=== PATIENT | female | born 1950 | race Caucasian/White ===

== ENCOUNTER 2016-09-23 02:39 | Inpatient (IN) | payer OTHER ==
[~2016-09-23] VITALS: Ht 162.6 cm; Wt 87.4 kg
[~2016-09-23 02:39] MED LIST: ATV/1 PO; LORA-741 PO; MECL1TAB42 PO; METO50TA16 PO; SERT50TA PO
--- NOTE | 2016-09-23 03:24 | EMERGENCY ROOM VISIT NOTE ---
History First contact with patient: 03:01 Chief Complaint: ABDOMINAL PAIN Stated Complaint: STOMACH PAINS Nursing Triage Summary: atient c/o of abdominal pain and nausea which started yesterday evenning. Denies fevers, vomiting or diarrhea. History of Present Illness The patient is a 65 year old female who presents to the Emergency Room with complaints of abdominal pain which started yesterday late afternoon. The patient states she has pain across her upper abdomen which radiates into the back. She states the pain is constant and rates the discomfort a 6/10. She reports a history of esophageal dysmotility. She had an EGD performed 2 years ago and states it was normal. She takes omeprazole daily due to a history of GERD. She reports slight nausea, but denies vomiting. She is short of breath at times but states this is normal for her. She denies urinary symptoms, hematuria or fevers/chills. She does state she feels her bowel movements have increased in frequency but denies any changes in the bowel movements. She reports a history of PVCs and anxiety. She denies any history of abdominal surgery. Review of Systems A complete 10 point review of systems was reviewed with the patient with pertinent positives and negatives as per history of present illness. All else were negative. Past Medical/Surgical History Medical Problems: (1) Benign paroxysmal positional vertigo (2) Breast cancer (3) Cholecystitis with cholelithiasis (4) Dizziness (5) Endometrial cancer (6) GERD (gastroesophageal reflux disease) (7) MAL ЕКАТЕРИНА BREAST UP-INNER (8) PVC (premature ventricular contraction) Surgical Problems: (1) H/O bilateral hip replacements (2) H/O: hysterectomy Family History FH: cancer FH: heart disease FH: lung disease Hypertension Kidney disease Kidney stones Seizures Social History Smoking Status: Never Smoker Alcohol Use: none Drug Use: none Marital Status: Housing Status: lives with family Occupation Status: unemployed Current/Historical Medications Scheduled Atorvastatin (Lipitor), 10 MG PO DAILY Lorazepam (Ativan), 0.5 MG PO BID Lorazepam (Ativan), 1 MG PO HS Metoprolol Tartrate (Lopressor) (Lopressor), 25 MG PO BID Omeprazole (Prilosec), 20 MG PO DAILY Sertraline (Zoloft), 50 MG PO DAILY Scheduled PRN Acetaminophen (Tylenol), 650 MG PO DIRECTED PRN for Pain or Fever Acetaminophen (Tylenol), 1,000 MG PO DIRECTED PRN for Pain or Fever Meclizine Hcl (Meclizine Hcl), 25 MG PO TID PRN for Dizziness or Vertigo Physical Exam Vital Signs Date Time Temp Pulse Resp B/P (MAP) Pulse Ox O2 Delivery O2 Flow Rate FiO2 09/23/16 06:59 60 18 163/75 97 Room Air 09/23/16 06:08 53 20 137/68 95 Room Air 09/23/16 04:55 65 18 162/66 98 Room Air 09/23/16 02:44 36.9 63 18 162/81 96 Room Air Physical Exam VITALS: Vitals are noted on the nurse's note and reviewed by myself. Vital signs stable. GENERAL: This is a 65-year-old female, in no acute distress, nondiaphoretic, well-developed well-nourished. HEENT: Normocephalic. PERRLA. EOMI. Mucous membranes moist. Neck is supple without nuchal rigidity. HEART: Regular rate and rhythm without murmurs gallops or rubs. LUNGS: Clear to auscultation bilaterally without wheezes, rales or rhonchi. ABDOMEN: Positive bowel sounds x 4. Soft, mild tenderness to palpation across the upper abdomen. No guarding or rebound tenderness. Negative Kebede sign. NEURO: Patient was alert and oriented to person place and time. Medical Decision & Procedures ER Provider Diagnostic Interpretation: CT ABDOMEN & PELVIS: Suspected cholelithiasis. Mild pericholecystic haziness. Correlate for cholecystitis. Consider ultrasound, as indicated. No evidence for appendicitis. Diverticulosis. Portions of the colon under distended limiting evaluation for wall thickening but no diverticulitis appreciated. Small hiatal hernia. Hip arthroplasties and other incidental findings. Radiologist: Jann Briceño MD BILIARY ULTRASOUND FINDINGS: Multiple gallstones are visualized. The gallbladder wall is at the upper limits of normal in thickness. There is no pericholecystic fluid. There is mild gallbladder distention. The common bile duct measures 7 mm. There is no right-sided hydronephrosis. The pancreas was nonvisualized. No hepatic masses were evident. IMPRESSION: 1. Cholelithiasis. Mildly distended gallbladder 2. 7 mm common bile duct 3. Gallbladder wall at the upper limits of normal thickness. 4. If there is clinical concern over the presence of acute cholecystitis, a nuclear medicine hepatobiliary study could be obtained in follow-up Laboratory Results 09/23/16 03:45 Red Blood Count 4.60, Mean Corpuscular Volume 84.3, Mean Corpuscular Hemoglobin 29.3, Mean Corpuscular Hemoglobin Concent 34.8, Mean Platelet Volume 11.6, Neutrophils (%) (Auto) 77.4, Lymphocytes (%) (Auto) 16.6, Monocytes (%) (Auto) 4.5, Eosinophils (%) (Auto) 0.8, Basophils (%) (Auto) 0.5, Neutrophils # (Auto) 8.25, Lymphocytes # (Auto) 1.77, Monocytes # (Auto) 0.48, Eosinophils # (Auto) 0.09, Basophils # (Auto) 0.05 09/23/16 03:45 Test 09/23/16 03:35 09/23/16 03:45 Urine Color YELLOW Urine Appearance CLEAR (CLEAR) Urine pH 5.0 (4.5-7.5) Urine Specific [place] 1.021 (1.000-1.030) Urine Protein NEG (NEG) Urine Glucose (UA) NEG (NEG) Urine Ketones NEG (NEG) Urine Occult Blood NEG (NEG) Urine Nitrite NEG (NEG) Urine Bilirubin NEG (NEG) Urine Urobilinogen NEG (NEG) Urine Leukocyte Esterase NEG (NEG) White Blood Count 10.66 K/uL (4.8-10.8) Red Blood Count 4.60 M/uL (4.2-5.4) Hemoglobin 13.5 g/dL (12.0-16.0) Hematocrit 38.8 % (37-47) Mean Corpuscular Volume 84.3 fL (80-100) Mean Corpuscular Hemoglobin 29.3 pg (25-34) Mean Corpuscular Hemoglobin Concent 34.8 g/dl (32-36) Platelet Count 225 K/uL (130-400) Mean Platelet Volume 11.6 fL (7.4-10.4) Neutrophils (%) (Auto) 77.4 % Lymphocytes (%) (Auto) 16.6 % Monocytes (%) (Auto) 4.5 % Eosinophils (%) (Auto) 0.8 % Basophils (%) (Auto) 0.5 % Neutrophils # (Auto) 8.25 K/uL (1.4-6.5) Lymphocytes # (Auto) 1.77 K/uL (1.2-3.4) Monocytes # (Auto) 0.48 K/uL (0.11-0.59) Eosinophils # (Auto) 0.09 K/uL (0-0.5) Basophils # (Auto) 0.05 K/uL (0-0.2) RDW Standard Deviation 39.5 fL (36.4-46.3) RDW Coefficient of Variation 13.0 % (11.5-14.5) Immature Granulocyte % (Auto) 0.2 % Immature Granulocyte # (Auto) 0.02 K/uL (0.00-0.02) Anion Gap 8.0 mmol/L (3-11) Est Creatinine Clear Calc Drug Dose 59.0 ml/min Estimated GFR () 68.3 Estimated GFR (Non- 59.0 BUN/Creatinine Ratio 11.9 (10-20) Calcium Level 9.5 mg/dl (8.5-10.1) Total Bilirubin 0.6 mg/dl (0.2-1) Direct Bilirubin 0.1 mg/dl (0-0.2) Aspartate Amino Transf (AST/SGOT) 12 U/L (15-37) Alanine Aminotransferase (ALT/SGPT) 21 U/L (12-78) Alkaline Phosphatase 100 U/L (45-117) Troponin I < 0.015 ng/ml (0-0.045) Total Protein 7.4 gm/dl (6.4-8.2) Albumin 3.8 gm/dl (3.4-5.0) Lipase 134 U/L (73-393) Medications Administered Medications (Trade) Dose Ordered Sig/Jyoti Route Start Time Stop Time Status Last Admin Dose Admin Morphine Sulfate (MoRPHine SULFATE INJ) 4 mg NOW STAT IV 09/23/16 04:57 09/23/16 04:58 DC 09/23/16 05:06 2 MG Ondansetron HCl (Zofran Inj) 4 mg NOW STAT IV 09/23/16 04:57 09/23/16 04:58 DC 09/23/16 05:05 4 MG Acetaminophen 100 ml @ 400 mls/hr NOW STAT IV 09/23/16 05:54 09/23/16 06:08 DC 09/23/16 06:05 400 MLS/HR Ondansetron HCl (Zofran Inj) 4 mg NOW STAT IV 09/23/16 07:23 09/23/16 07:24 DC 09/23/16 07:33 4 MG ECG Rate (beats per minute): 58 Rhythm: sinus bradycardia Findings: no acute ischemic change, no ectopy ED Course The patient was evaluated as above. Labs were drawn and IV access was obtained. Patient was medicated with IV morphine and Zofran. CT was performed and read by radiology as above. Ultrasound of the right upper quadrant was ordered. Patient was reevaluated and findings were discussed. She was given IV Tylenol and additional dose of IV Zofran. Case was discussed with the [facility] Hospitalist, Dr. Hearn. They agreed to evaluate the patient for admission. Medical Decision Differential diagnosis includes cholecystitis, gastritis, colitis, gastroenteritis, cardiac disease, kidney stone, pyelonephritis, among others. The patient is a 65-year-old female who presents today complaining of upper abdominal discomfort and nausea. Labs revealed no leukocytosis, however white count is at upper limits of normal. No concerning electrolyte abnormalities. LFTs are within normal limits. CT was performed and showed questionable findings within the gallbladder. For this reason, ultrasound of the right upper quadrant was performed and did show evidence of possible cholecystitis. Given the patient's upper abdominal pain and nausea, I do feel she may need a HIDA scan and further workup for possible cholecystitis. Patient will be admitted to the [facility] service for further evaluation and surgical consultation. Medication Reconcilliation Current Medication List: was personally reviewed by me Blood Pressure Screening Patient's blood pressure: Elevated blood pressure Blood pressure disposition: Elevated BP felt to be situational Impression Primary Impression: Right upper quadrant abdominal pain Departure Information Referrals Yamil Horn M.D. (MEDICAL) (PCP) Patient Instructions [facility]
[2016-09-23] MEDS ORDERED: PRLSR20 PO (03:27)
[2016-09-23] MEDS ORDERED: ACET-1311 PO (03:27)
[2016-09-23] MEDS ORDERED: ACET-1256 PO (03:27)
[2016-09-23] MEDS ORDERED: ATOR10TA88 PO (03:27)
[2016-09-23 03:53] LABS: MANUAL MICROSCOPIC REQUIRED? NO; REVIEW REQ? NO; URINE APPEARANCE CLEAR (CLEAR); URINE BILIRUBIN NEG (NEG); URINE COLOR YELLOW; URINE NITRITE NEG (NEG); URINE SPECIFIC GRAVITY 1.021 (1.000-1.030); UROBILINOGEN NEG (NEG); ZZUR CULT IF INDIC CLEAN CATCH NO
[2016-09-23 03:59] LABS: BASO % 0.5 %; BASO ABS # 0.05 K/uL (0-0.2); COMPLETE YES; EOS % 0.8 %; HEMATOCRIT 38.8 % (37-47); IG% 0.2 %; LYMPH % 16.6 %; LYMPH ABS # 1.77 K/uL (1.2-3.4); MEAN CELL VOLUME 84.3 fL (80-100); MEAN CORPUSCULAR HEMOGLOBIN 29.3 pg (25-34); MEAN CORPUSCULAR HGB CONC 34.8 g/dl (32-36); MEAN PLATELET VOLUME 11.6 fL (7.4-10.4); MONO % 4.5 %; NEUT % 77.4 %; PLATELET COUNT 225 K/uL (130-400); WHITE BLOOD COUNT 10.66 K/uL (4.8-10.8)
[2016-09-23 04:22] LABS: BLOOD UREA NITROGEN 12 mg/dl (7-18); GLUCOSE 124 mg/dl (70-99)
[2016-09-23 04:23] LABS: ALT/SGPT 21 U/L (12-78); AST/SGOT 12 U/L (15-37); BUN/CREATININE RATIO 11.9 (10-20); CALCIUM 9.5 mg/dl (8.5-10.1); CARBON DIOXIDE 26 mmol/L (21-32); CHLORIDE 105 mmol/L (98-107); CREATININE 0.99 mg/dl (0.60-1.20); POTASSIUM 3.8 mmol/L (3.5-5.1); SODIUM 139 mmol/L (136-145)
[2016-09-23 04:27] LABS: ALKALINE PHOSPHATASE 100 U/L (45-117)
[2016-09-23] MEDS ORDERED: OPTIRAY 320 IV PRN (04:45)
[2016-09-23] MEDS ORDERED: ONDANSETRON INJ 2 MG/ML 2 ML VIAL IV STA ×2 (04:57→07:23)
[2016-09-23] MEDS ORDERED: MoRPHine SULFATE 4 MG/ML 1 ML CARP\\VIAL IV STA (04:57)
[2016-09-23] MEDS ORDERED: ACETAMINOPHEN IV 100 ML IV STA (05:54)
--- NOTE | 2016-09-23 07:03 | DIAGNOSTIC IMAGING REPORT ---
BILIARY ULTRASOUND CLINICAL HISTORY: upper abd pain, nausea COMPARISON STUDY: CT scan dated September 23, 2016 FINDINGS: Multiple gallstones are visualized. The gallbladder wall is at the upper limits of normal in thickness. There is no pericholecystic fluid. There is mild gallbladder distention. The common bile duct measures 7 mm. There is no right-sided hydronephrosis. The pancreas was nonvisualized. No hepatic masses were evident. IMPRESSION: 1. Cholelithiasis. Mildly distended gallbladder 2. 7 mm common bile duct 3. Gallbladder wall at the upper limits of normal thickness. 4. If there is clinical concern over the presence of acute cholecystitis, a nuclear medicine hepatobiliary study could be obtained in follow-up Electronically signed by: Yimi Canela M.D. 09/23/2016 7:02 AM Dictated Date/Time: 09/23/2016 6:58 AM
--- NOTE | 2016-09-23 07:08 | EMERGENCY ROOM VISIT NOTE ---
ED Visit Note First contact with patient: 03:01 I saw this patient in conjunction with Yaneli Hernadez PA-C. I agree with her decision making and treatment plan.
--- NOTE | 2016-09-23 07:33 | DIAGNOSTIC IMAGING REPORT ---
ABDOMEN AND PELVIS CT WITH IV CONTRAST CT DOSE: 722.42 mGy.cm HISTORY: pain across upper abdomen, nausea, hx hiatal hernia TECHNIQUE: Multiaxial CT images of the abdomen and pelvis were performed following the use of intravenous contrast. A dose lowering technique was utilized adhering to the principles of ALARA. COMPARISON STUDY: Abdomen and pelvis CT 01/21/2013. FINDINGS: The lung bases are clear. The liver, spleen, Trental glands, pancreas, and kidneys are unremarkable. No retroperitoneal lymphadenopathy. Streak artifact obscures the deep pelvic structures. Hysterectomy. Bladder is decompressed and not well evaluated. A few colonic diverticula. No bowel wall thickening or obstruction. Normal appendix. Bilateral total hip arthroplasties. Suspect cholelithiasis. Minimal pericholecystic haziness. No definite gallbladder wall thickening. IMPRESSION: 1. Suspect cholelithiasis. There may be minimal pericholecystic haziness. This could represent an early acute cholecystitis in the appropriate clinical setting. Recommend correlation with ultrasound. 2. No bowel wall thickening or obstruction. 3. Normal appendix. 4. Colonic diverticulosis. Electronically signed by: Alvarado Cleary M.D. 09/23/2016 7:31 AM Dictated Date/Time: 09/23/2016 7:27 AM
[2016-09-23] MEDS ORDERED: ALUMINUM/MAGNESIUM/SIMETH (MAALOX MAX) 30 ML UDC PO PRN (08:00)
[2016-09-23] MEDS ORDERED: ONDANSETRON INJ 2 MG/ML 2 ML VIAL IV PRN (08:00)
[2016-09-23 08:10] VITALS: O2SAT 98; Ht 162.6 cm; Wt 87.4 kg
[2016-09-23] MEDS ORDERED: MoRPHine SULFATE 2 MG/ML CARP IV PRN (08:45)
[2016-09-23 08:55] VITALS: BP 144/78; PULSE 59; TEMP 36.7; O2SAT 97
[2016-09-23] MEDS: METOPROLOL TARTRATE 50 MG TAB PO SCH ×2 (09:00→21:51)
[2016-09-23] MEDS: LORAZEPAM 0.5 MG TAB PO SCH ×2 (09:00→13:14)
[2016-09-23] MEDS ORDERED: METOPROLOL TARTRATE 50 MG TAB PO SCH (09:00)
[2016-09-23] MEDS: ATORVASTATIN 10 MG TAB PO SCH (09:00)
[2016-09-23] MEDS: SERTRALINE HCL 50 MG TAB PO SCH (09:00)
[2016-09-23] MEDS: PANTOprazole SOD 40 MG TAB PO SCH (09:00)
--- NOTE | 2016-09-23 09:08 | History and Physical ---
History & Physical Date & Time of Service: Sep 23, 2016 at 08:50 Chief Complaint: Stomach Pains Primary Care Physician: Yamil Horn M.D. (MEDICAL) History of Present Illness Source: patient, family, hospital records This is a 65 year old female with a PMH of HTN, HLD, recurrent PVCs, PACs, hx. of breast CA s/p lumpectomy, depression/anxiety, GERD presents with epigastric tenderness - states that she had this last night after dinner and was made worse late night after eating some chips. The pain was described as a sharp pain across her epigastric region. Initially she thought it might be related to reflux - but she states this is usually controlled with over the counter Prilosec. The pain was associated with nausea, but no vomiting. Denies diarrhea. No chest pain or shortness of breath; denies fevers/chills. Presented to the ER: had an abdominal CT showing cholelithiasis and possible acute cholecystitis. RUQ U/S was then performed and gallbladder again, showing possible cholecystitis. Was given morphine and Zofran in the ER; states her pain has improved slightly, but nausea is still present. Past Medical/Surgical History Medical Problems: (1) Benign paroxysmal positional vertigo Status: Chronic (2) Breast cancer Status: Chronic (3) Dizziness Status: Chronic (4) Endometrial cancer Status: Resolved (5) GERD (gastroesophageal reflux disease) Status: Chronic (6) MAL ЕКАТЕРИНА BREAST UP-INNER Status: Resolved (7) PVC (premature ventricular contraction) Status: Chronic Surgical Problems: (1) H/O bilateral hip replacements Status: Resolved (2) H/O: hysterectomy Status: Resolved Family History FH: cancer FH: heart disease FH: lung disease Hypertension Kidney disease Kidney stones Seizures Social History Smoking Status: Never Smoker Drug Use: none Marital Status: Occupational Status: unemployed Immunizations History of Influenza Vaccine: No History of Tetanus Vaccine?: No History of Pneumococcal: No History of Hepatitis B Vaccine: No Multi-Drug Resistant Organisms History of MDRO: No Allergies Coded Allergies: Aspirin (Verified Allergy, Unknown, 09/23/16) Buspirone (Verified Allergy, Unknown, 09/23/16) Clavulanic Acid (Verified Allergy, Unknown, ALLERGY TO "BETA-LACTAMASE" INHIBITORS, 09/23/16) Macrolides (Verified Allergy, Unknown, 09/23/16) Penicillins (Verified Allergy, Unknown, 09/23/16) Sulbactam (Verified Allergy, Unknown, ALLERGY TO "BETA-LACTAMASE INHIBITORS", 09/23/16) Sulfa Drugs (Verified Allergy, Unknown, "SULFA" ALLERGY PER SDS/MTU, ) Codeine (Verified Adverse Reaction, Mild, SWEATS,FAINTS, 09/23/16) Home Medications Scheduled Atorvastatin (Lipitor), 10 MG PO DAILY Lorazepam (Ativan), 0.5 MG PO BID Lorazepam (Ativan), 1 MG PO HS Metoprolol Tartrate (Lopressor) (Lopressor), 25 MG PO BID Omeprazole (Prilosec), 20 MG PO DAILY Sertraline (Zoloft), 50 MG PO DAILY Scheduled PRN Acetaminophen (Tylenol), 650 MG PO DIRECTED PRN for Pain or Fever Acetaminophen (Tylenol), 1,000 MG PO DIRECTED PRN for Pain or Fever Meclizine Hcl (Meclizine Hcl), 25 MG PO TID PRN for Dizziness or Vertigo Review of Systems Constitutional: No fever, No chills, No weakness Respiratory: No cough, No sputum, No shortness of breath Cardiovascular: No chest pain, No orthopnea, No edema, No palpitations Abdomen: + pain, + nausea, No vomiting, No diarrhea, No constipation, No GI bleeding Musculoskeletal: No joint pain, No muscle pain Genitourinary - Female: No dysuria, No urinary frequency, No urinary urgency, No urinary incontinence, No urinary retention, No hematuria Neurologic: No weakness, No numbness/tingling Psychiatric: No depression symptoms, No anxiety (controlled with medications) Hematologic / Lymphatic: No abnormal bleeding/bruising Integumentary: No rash Allergic / Immunologic: No environmental allergies, No seasonal allergies Physical Exam Vital Signs Date Time Temp Pulse Resp B/P (MAP) Pulse Ox O2 Delivery O2 Flow Rate FiO2 09/23/16 08:35 58 18 155/79 98 Room Air 09/23/16 08:10 98 Room Air 09/23/16 06:59 60 18 163/75 97 Room Air 09/23/16 06:08 53 20 137/68 95 Room Air 09/23/16 04:55 65 18 162/66 98 Room Air 09/23/16 02:44 36.9 63 18 162/81 96 Room Air General Appearance: + mild distress (secondary to pain and nausea) Head: normocephalic, atraumatic Eyes: normal inspection ENT: hearing grossly normal Neck: supple Respiratory/Chest: chest non-tender, lungs clear, normal breath sounds, no respiratory distress, no accessory muscle use Cardiovascular: regular rate, rhythm, no edema, no murmur, normal peripheral pulses Abdomen/GI: soft, + tenderness (nondistended, tenderness at epigastric region) Back: no CVA tenderness Extremities/Musculoskelatal: normal capillary refill, no pedal edema Neurologic/Psych: no motor/sensory deficits, alert, normal mood/affect Skin: normal color Lymphatic: no adenopathy Diagnostics Laboratory Results Results Past 24 Hours Test 09/23/16 03:35 09/23/16 03:45 Range/Units Urine Color YELLOW Urine Appearance CLEAR CLEAR Urine pH 5.0 4.5-7.5 Urine Specific [place] 1.021 1.000-1.030 Urine Protein NEG NEG Urine Glucose (UA) NEG NEG Urine Ketones NEG NEG Urine Occult Blood NEG NEG Urine Nitrite NEG NEG Urine Bilirubin NEG NEG Urine Urobilinogen NEG NEG Urine Leukocyte Esterase NEG NEG White Blood Count 10.66 4.8-10.8 K/uL Red Blood Count 4.60 4.2-5.4 M/uL Hemoglobin 13.5 12.0-16.0 g/dL Hematocrit 38.8 37-47 % Mean Corpuscular Volume 84.3 80-100 fL Mean Corpuscular Hemoglobin 29.3 25-34 pg Mean Corpuscular Hemoglobin Concent 34.8 32-36 g/dl Platelet Count 225 130-400 K/uL Mean Platelet Volume 11.6 7.4-10.4 fL Neutrophils (%) (Auto) 77.4 % Lymphocytes (%) (Auto) 16.6 % Monocytes (%) (Auto) 4.5 % Eosinophils (%) (Auto) 0.8 % Basophils (%) (Auto) 0.5 % Neutrophils # (Auto) 8.25 1.4-6.5 K/uL Lymphocytes # (Auto) 1.77 1.2-3.4 K/uL Monocytes # (Auto) 0.48 0.11-0.59 K/uL Eosinophils # (Auto) 0.09 0-0.5 K/uL Basophils # (Auto) 0.05 0-0.2 K/uL RDW Standard Deviation 39.5 36.4-46.3 fL RDW Coefficient of Variation 13.0 11.5-14.5 % Immature Granulocyte % (Auto) 0.2 % Immature Granulocyte # (Auto) 0.02 0.00-0.02 K/uL Sodium Level 139 136-145 mmol/L Potassium Level 3.8 3.5-5.1 mmol/L Chloride Level 105 98-107 mmol/L Carbon Dioxide Level 26 21-32 mmol/L Anion Gap 8.0 3-11 mmol/L Blood Urea Nitrogen 12 7-18 mg/dl Creatinine 0.99 0.60-1.20 mg/dl Est Creatinine Clear Calc Drug Dose 59.0 ml/min Estimated GFR () 68.3 Estimated GFR (Non- 59.0 BUN/Creatinine Ratio 11.9 10-20 Random Glucose 124 70-99 mg/dl Calcium Level 9.5 8.5-10.1 mg/dl Total Bilirubin 0.6 0.2-1 mg/dl Direct Bilirubin 0.1 0-0.2 mg/dl Aspartate Amino Transf (AST/SGOT) 12 15-37 U/L Alanine Aminotransferase (ALT/SGPT) 21 12-78 U/L Alkaline Phosphatase 100 45-117 U/L Troponin I < 0.015 0-0.045 ng/ml Total Protein 7.4 6.4-8.2 gm/dl Albumin 3.8 3.4-5.0 gm/dl Lipase 134 73-393 U/L Diagnostic Radiology ABDOMEN AND PELVIS CT WITH IV CONTRAST CT DOSE: 722.42 mGy.cm HISTORY: pain across upper abdomen, nausea, hx hiatal hernia TECHNIQUE: Multiaxial CT images of the abdomen and pelvis were performed following the use of intravenous contrast. A dose lowering technique was utilized adhering to the principles of ALARA. COMPARISON STUDY: Abdomen and pelvis CT 01/21/2013. FINDINGS: The lung bases are clear. The liver, spleen, Trental glands, pancreas, and kidneys are unremarkable. No retroperitoneal lymphadenopathy. Streak artifact obscures the deep pelvic structures. Hysterectomy. Bladder is decompressed and not well evaluated. A few colonic diverticula. No bowel wall thickening or obstruction. Normal appendix. Bilateral total hip arthroplasties. Suspect cholelithiasis. Minimal pericholecystic haziness. No definite gallbladder wall thickening. IMPRESSION: 1. Suspect cholelithiasis. There may be minimal pericholecystic haziness. This could represent an early acute cholecystitis in the appropriate clinical setting. Recommend correlation with ultrasound. 2. No bowel wall thickening or obstruction. 3. Normal appendix. 4. Colonic diverticulosis. BILIARY ULTRASOUND CLINICAL HISTORY: upper abd pain, nausea COMPARISON STUDY: CT scan dated September 23, 2016 FINDINGS: Multiple gallstones are visualized. The gallbladder wall is at the upper limits of normal in thickness. There is no pericholecystic fluid. There is mild gallbladder distention. The common bile duct measures 7 mm. There is no right-sided hydronephrosis. The pancreas was nonvisualized. No hepatic masses were evident. IMPRESSION: 1. Cholelithiasis. Mildly distended gallbladder 2. 7 mm common bile duct 3. Gallbladder wall at the upper limits of normal thickness. 4. If there is clinical concern over the presence of acute cholecystitis, a nuclear medicine hepatobiliary study could be obtained in follow-up EKG Sinus bradycardia @ 58bpm Otherwise normal ECG Impression Assessment and Plan This is a 65 year old female with a PMH of HTN, HLD, recurrent PVCs, PACs, hx. of breast CA s/p lumpectomy, depression/anxiety, GERD presents with epigastric tenderness Cholelithiasis, possible Cholecystitis patient presented with epigastric tenderness after dinner and snacks last night (09/22) Abdominal CT performed - cholelithiasis - possible acute cholecystitis RUQ U/S unequivocal as well, gallbladder on the upper limits of normal will obtain a HIDA scan currently NPO, IVFs general surgery consultation placed morphine and Zofran PRN for now HTN blood pressure elevated on admission possibly secondary to pain currently continue Metoprolol 50mg BID Hx. of PVCs recent stress echo in June 2016 - no ischemia noted continue b-domo Depression/Anxiety continue Sertraline and Ativan as prescribed DVT ppx SCDs; possible surgery FULL CODE Advanced Directives Existing Living Will: No Existing Power of Occupational Health Physician: No VTE Prophylaxis VTE Risk Assessment Done? Y/N: Yes Risk Level: Moderate
[2016-09-23] MEDS: D5W AND 1/2NSS 1,000 ML IV SCH ×2 (09:35→21:50)
--- NOTE | 2016-09-23 12:48 | DIAGNOSTIC IMAGING REPORT ---
NUCLEAR HEPATOBILIARY SCAN CLINICAL HISTORY: Right upper quadrant abdominal pain. COMPARISON STUDY: Abdominal CT and ultrasound dated 09/23/2016. TECHNIQUE: Dynamic images of the liver and anterior abdomen were obtained every 5 minutes for a total of 60 minutes following the IV administration of 5.4mCi of technetium 99m Choletec. 2 mg of IV morphine were administered at 60 minutes. Delayed imaging was then performed every 5 minutes for an additional 30 minutes. FINDINGS: The hepatobiliary scan shows prompt and homogeneous hepatic uptake. There is visualized activity within the intra and extrahepatic biliary tree at 15 minutes. There is normal biliary to bowel transit, with small bowel visualized by 30 minutes. The gallbladder was not visualized at 60 minutes. The gallbladder was also not visualized at 90 minutes following morphine administration. IMPRESSION: Scintigraphic findings are consistent with acute cholecystitis. Surgical consultation is advised. Electronically signed by: Dwayne Arechiga M.D. 09/23/2016 12:47 PM Dictated Date/Time: 09/23/2016 12:45 PM
[2016-09-23] MEDS: ONDANSETRON INJ 2 MG/ML 2 ML VIAL IV PRN ×2 (13:17→17:27)
[2016-09-23 15:25] VITALS: BP 145/69; PULSE 60; TEMP 36.7; O2SAT 97
--- NOTE | 2016-09-23 16:02 | Surgery Consultation ---
Consultation Date of Consultation: Sep 23, 2016. Attending Physician: David Hearn, History of Present Illness This is a 65 year old female with a PMH of HTN, HLD, recurrent PVCs, PACs, hx. of breast CA s/p lumpectomy, depression/anxiety, GERD presents with epigastric tenderness - states that she had this last night after dinner and was made worse late night after eating some chips. The pain was described as a sharp pain across her epigastric region. Initially she thought it might be related to reflux - but she states this is usually controlled with over the counter Prilosec. The pain was associated with nausea, but no vomiting. Denies diarrhea. No chest pain or shortness of breath; denies fevers/chills. Presented to the ER: had an abdominal CT showing cholelithiasis and possible acute cholecystitis. RUQ U/S was then performed and gallbladder again, showing possible cholecystitis. Was given morphine and Zofran in the ER; states her pain has improved slightly, but nausea is still present. I saw pt and reviewed all H/P, now pt is still have some RUQ pain, with nausea, no vomiting, pt had HIDA scan- DX acute cholecystitis, with cholelithiasis, pt requests to do cholecystectomy, Family History FH: cancer FH: heart disease FH: lung disease Hypertension Kidney disease Kidney stones Seizures Social History Smoking Status: Never Smoker Smokeless Tobacco Use: No Alcohol Use: none Drug Use: none Marital Status: Housing Status: lives with family Occupation Status: unemployed Allergies Coded Allergies: Aspirin (Verified Allergy, Unknown, 09/23/16) Buspirone (Verified Allergy, Unknown, 09/23/16) Clavulanic Acid (Verified Allergy, Unknown, ALLERGY TO "BETA-LACTAMASE" INHIBITORS, 09/23/16) Macrolides (Verified Allergy, Unknown, 09/23/16) Penicillins (Verified Allergy, Unknown, 09/23/16) Sulbactam (Verified Allergy, Unknown, ALLERGY TO "BETA-LACTAMASE INHIBITORS", 09/23/16) Sulfa Drugs (Verified Allergy, Unknown, "SULFA" ALLERGY PER SDS/MTU, ) Codeine (Verified Adverse Reaction, Mild, SWEATS,FAINTS, 09/23/16) Home Medications Scheduled Atorvastatin (Lipitor), 10 MG PO DAILY Lorazepam (Ativan), 0.5 MG PO BID Lorazepam (Ativan), 1 MG PO HS Metoprolol Tartrate (Lopressor) (Lopressor), 25 MG PO BID Omeprazole (Prilosec), 20 MG PO DAILY Sertraline (Zoloft), 50 MG PO DAILY Scheduled PRN Acetaminophen (Tylenol), 650 MG PO DIRECTED PRN for Pain or Fever Acetaminophen (Tylenol), 1,000 MG PO DIRECTED PRN for Pain or Fever Meclizine Hcl (Meclizine Hcl), 25 MG PO TID PRN for Dizziness or Vertigo Current Inpatient Medications Current Inpatient Medications Medications (Trade) Dose Ordered Sig/Jyoti Route Start Time Stop Time Status Last Admin Dose Admin Ioversol (Optiray 320) 100 ml UD PRN IV 09/23/16 04:45 09/27/16 04:44 Atorvastatin Calcium (Lipitor Tab) 10 mg DAILY PO 09/23/16 09:00 10/23/16 08:59 Lorazepam (Ativan Tab) 0.5 mg BID@0900,1500 PO 09/23/16 09:00 10/23/16 08:59 09/23/16 13:14 0.5 MG Lorazepam (Ativan Tab) 1 mg HS PO 09/23/16 21:00 10/23/16 20:59 Sertraline HCl (Zoloft Tab) 50 mg DAILY PO 09/23/16 09:00 10/23/16 08:59 Pantoprazole Sodium (Protonix Tab) 40 mg QAM PO 09/23/16 09:00 10/23/16 08:59 Al Hydrox/Mg Hydrox/Simethicone (Maalox Max Susp) 15 ml Q4H PRN PO 09/23/16 08:00 10/23/16 07:59 Metoprolol Tartrate (Lopressor Tab) 50 mg BID PO 09/23/16 09:00 10/23/16 08:59 Ondansetron HCl (Zofran Inj) 4 mg Q4 PRN IV 09/23/16 12:00 10/23/16 07:59 09/23/16 13:17 4 MG Morphine Sulfate (MoRPHine SULFATE INJ) 2 mg Q4 PRN IV 09/23/16 08:45 10/07/16 08:44 Dextrose/Sodium Chloride 1,000 ml @ 80 mls/hr [id number] IV 09/23/16 09:15 10/23/16 09:14 09/23/16 09:35 80 MLS/HR Review of Systems Constitutional: No fever, No chills, No sweats, No weight loss, No weakness, No fatigue, No problem reported Eyes: No worsening of vision, No eye pain, No redness, No discharge, No diplopia, No problem reported ENT: No hearing loss, No unusual epistaxis, No nasal symptoms, No sore throat, No tinnitus, No dental problems, No trouble swallowing, No problem reported Respiratory: No cough, No sputum, No wheezing, No shortness of breath, No dyspnea on exertion, No dyspnea at rest, No hemoptysis, No problem reported Cardiovascular: + problem reported (pt had cardiac stress test in May, which was negative, ), No chest pain, No orthopnea, No PND, No edema, No claudication , No palpitations Abdomen: + pain, + nausea, + vomiting Musculoskeletal: + problem reported (bilt hip replacement) Genitourinary - Female: No dysuria, No urinary frequency, No urinary urgency, No urinary incontinence, No urinary retention, No hematuria, No dysmenorrhea, No menorrhagia, No metrorrhagia, No rash, No vaginal bleeding, No vaginal discharge, No vaginal itching, No vulvodynia, No , No problem reported Neurologic: No memory loss, No paralysis, No weakness, No numbness/tingling, No vertigo, No balance problems, No problem reported Psychiatric: No depression symptoms, No anhedonism, No anxiety, No insomnia, No substance abuse, No problem reported Endocrine: + problem reported (DM) Integumentary: No rash, No itch, No new/changing skin lesions, No color change , No bleeding, No problem reported Physical Exam Date Time Temp Pulse Resp B/P (MAP) Pulse Ox O2 Delivery O2 Flow Rate FiO2 09/23/16 15:25 36.7 60 18 145/69 (94) 97 Room Air 09/23/16 09:00 Room Air 09/23/16 08:55 36.7 59 18 144/78 (100) 97 Room Air 09/23/16 08:35 58 18 155/79 98 Room Air 09/23/16 08:10 98 Room Air 09/23/16 06:59 60 18 163/75 97 Room Air 09/23/16 06:08 53 20 137/68 95 Room Air 09/23/16 04:55 65 18 162/66 98 Room Air 09/23/16 02:44 36.9 63 18 162/81 96 Room Air General Appearance: WD/WN, no apparent distress Head: normocephalic Eyes: normal inspection ENT: normal ENT inspection Neck: supple, no JVD Respiratory/Chest: chest non-tender, lungs clear Cardiovascular: regular rate, rhythm, no edema, no gallop, no JVD, no murmur Abdomen/GI: normal bowel sounds, soft, no organomegaly, + tenderness ( tenderness at RUQ) Extremities/Musculoskelatal: normal inspection, no calf tenderness, normal capillary refill Neurologic/Psych: no motor/sensory deficits, alert, normal mood/affect Skin: normal color, warm/dry, no rash Laboratory Results Last 24 Hours Test 09/23/16 03:35 09/23/16 03:45 Urine Color YELLOW Urine Appearance CLEAR Urine pH 5.0 Urine Specific [place] 1.021 Urine Protein NEG Urine Glucose (UA) NEG Urine Ketones NEG Urine Occult Blood NEG Urine Nitrite NEG Urine Bilirubin NEG Urine Urobilinogen NEG Urine Leukocyte Esterase NEG White Blood Count 10.66 K/uL Red Blood Count 4.60 M/uL Hemoglobin 13.5 g/dL Hematocrit 38.8 % Mean Corpuscular Volume 84.3 fL Mean Corpuscular Hemoglobin 29.3 pg Mean Corpuscular Hemoglobin Concent 34.8 g/dl Platelet Count 225 K/uL Mean Platelet Volume 11.6 fL Neutrophils (%) (Auto) 77.4 % Lymphocytes (%) (Auto) 16.6 % Monocytes (%) (Auto) 4.5 % Eosinophils (%) (Auto) 0.8 % Basophils (%) (Auto) 0.5 % Neutrophils # (Auto) 8.25 K/uL Lymphocytes # (Auto) 1.77 K/uL Monocytes # (Auto) 0.48 K/uL Eosinophils # (Auto) 0.09 K/uL Basophils # (Auto) 0.05 K/uL RDW Standard Deviation 39.5 fL RDW Coefficient of Variation 13.0 % Immature Granulocyte % (Auto) 0.2 % Immature Granulocyte # (Auto) 0.02 K/uL Sodium Level 139 mmol/L Potassium Level 3.8 mmol/L Chloride Level 105 mmol/L Carbon Dioxide Level 26 mmol/L Anion Gap 8.0 mmol/L Blood Urea Nitrogen 12 mg/dl Creatinine 0.99 mg/dl Est Creatinine Clear Calc Drug Dose 59.0 ml/min Estimated GFR () 68.3 Estimated GFR (Non- 59.0 BUN/Creatinine Ratio 11.9 Random Glucose 124 mg/dl Calcium Level 9.5 mg/dl Total Bilirubin 0.6 mg/dl Direct Bilirubin 0.1 mg/dl Aspartate Amino Transf (AST/SGOT) 12 U/L Alanine Aminotransferase (ALT/SGPT) 21 U/L Alkaline Phosphatase 100 U/L Troponin I < 0.015 ng/ml Total Protein 7.4 gm/dl Albumin 3.8 gm/dl Lipase 134 U/L Assessment & Plan HIDA IMPRESSION: 1. Cholelithiasis. Mildly distended gallbladder 2. 7 mm common bile duct 3. Gallbladder wall at the upper limits of normal thickness. 4. If there is clinical concern over the presence of acute cholecystitis, a nuclear medicine hepatobiliary study could be obtained in follow-up HIDA:IMPRESSION: Scintigraphic findings are consistent with acute cholecystitis. Surgical consultation is advised. IMP: acute cholecystitis, cholelithiasis Plan, I recommend to do laparoscopic cholecystectomy, possible open or cholangiogram tomorrow, D/W benefits, risks and alternatives of the procedure, graciela risks- infection, bleeding, injury CBD, bowel, may need ERCP, CA, DVT, stroke, , pt understood, she and her daughter agree with the plan, I answered all questions,
[2016-09-23] MEDS ORDERED: PROMETHAZINE HCL INJ 12.5 MG in SODIUM CHLORIDE 0.9% 50ML 50 ML IV PRN (17:30)
[2016-09-23] MEDS: LORAZEPAM 1 MG TAB PO SCH (21:51)
[2016-09-23 22:49] VITALS: BP 124/73; PULSE 59; TEMP 36.8; O2SAT 98
[2016-09-24] VITALS (8 sets, daily range): BP systolic 105–126; BP diastolic 57–72; PULSE 58–70; TEMP 36.5–36.9; O2SAT 3–98
[2016-09-24] MEDS: LORAZEPAM 0.5 MG TAB PO SCH ×2 (07:42→15:00)
[2016-09-24] MEDS: PANTOprazole SOD 40 MG TAB PO SCH (07:42)
[2016-09-24] MEDS: SERTRALINE HCL 50 MG TAB PO SCH (07:42)
[2016-09-24] MEDS: ATORVASTATIN 10 MG TAB PO SCH (07:43)
[2016-09-24] MEDS: METOPROLOL TARTRATE 25 MG TAB PO SCH ×2 (07:43→21:43)
[2016-09-24] MEDS: D5W AND 1/2NSS 1,000 ML IV SCH ×2 (10:45→22:03)
[2016-09-24] MEDS ORDERED: FENTANYL CITRATE INJ 50 MCG/1 ML 2 ML VIAL ONE ×2 (13:18→14:30)
[2016-09-24] MEDS ORDERED: SCOPOLAMINE 1.5 MG TDSY TD ONE ×2 (13:28→13:45)
[2016-09-24] MEDS ORDERED: CLINDAMYCIN 600 MG/54 ML D5W IV ONE (13:33)
--- NOTE | 2016-09-24 13:37 | History & Physical Bridge Note ---
H&P Re-Evaluation Bridge Note: I have examined the patient, reviewed the History & Physical and in the interval since the performance of the History & Physical I have noted the following changes of clinical significance: No changes noted
[2016-09-24] MEDS ORDERED: EpHEDrine SULFATE INJ 50 MG/ML AMP IV PRN (13:45)
[2016-09-24] MEDS ORDERED: NURSING VERBAL MED ORDER ONE (13:45)
[2016-09-24] MEDS ORDERED: ONDANSETRON INJ 2 MG/ML 2 ML VIAL IV PRN (13:45)
[2016-09-24] MEDS ORDERED: ATROPINE SULFATE 0.1 MG/ML 5ML SYR IV PRN (13:45)
[2016-09-24] MEDS ORDERED: PROMETHAZINE HCL INJ 12.5 MG in SODIUM CHLORIDE 0.9% 50ML 50 ML IV PRN (13:45)
[2016-09-24] MEDS ORDERED: FENTANYL CITRATE INJ 50 MCG/1 ML 2 ML VIAL IV PRN (13:45)
[2016-09-24] MEDS ORDERED: BUPIVACAINE 0.5 % 5 MG/1 ML MPF 30ML VIAL ONE (13:53)
[2016-09-24] MEDS ORDERED: LIDOCAINE HCL 1% 20 ML VIAL ONE (13:53)
[2016-09-24] MEDS ORDERED: BACITRACIN OINT 15 GM TUBE ONE (13:54)
[2016-09-24] MEDS ORDERED: EpHEDrine SULFATE 50MG/5ML SYR ONE (14:30)
[2016-09-24] MEDS ORDERED: GLYCOPYRROLATE INJ 0.2 MG/ML VIAL ONE ×2 (14:33→15:11)
[2016-09-24] MEDS ORDERED: LIDOCAINE HCL 2% 2 ML VIAL (20MG/ML) ONE (14:33)
[2016-09-24] MEDS ORDERED: PROPOFOL IV EMULSION 10 MG/ML 20 ML VIAL IV ONE (14:33)
[2016-09-24] MEDS ORDERED: NEOSTIGMINE METHYLSULFATE 5 MG/5 ML SYR ONE (14:33)
[2016-09-24] MEDS ORDERED: ONDANSETRON INJ 2 MG/ML 2 ML VIAL ONE (14:33)
[2016-09-24] MEDS ORDERED: DEXAMETHASONE SOD INJ 4 MG/ML VIAL ONE (14:33)
[2016-09-24] MEDS ORDERED: ROCURONIUM BROMIDE 10 MG/ML 5 ML VIAL ONE (14:33)
--- NOTE | 2016-09-24 15:37 | [facility] Post Operative Brief Note ---
Immediate Operative Summary Operative Date Sep 24, 2016. Pre-Operative Diagnosis acute Cholecystitis/ Cholelithiasis Post-Operative Diagnosis acute Cholecystitis/ Cholelithiasis Procedure(s) Performed Laparoscopic Cholecystectomy Surgeon Transfer Controller Surgeon(s) surgical device sales representative Estimated Blood Loss 20cc Findings acute cholecystitis, cholelithiasis Fluids (cc crystalloids) 1100ml Specimens A. Gallbladder and contents Drains none Anesthesia general Complication(s) None Disposition Recovery Room / PACU
--- NOTE | 2016-09-24 15:42 | Surgery Progress Note ---
Surgery Progress Note Date of Service Sep 24, 2016. Subjective + feeling well pt is doing better, less abdominal pain, no fever, Objective Vital Signs: Date Time Temp Pulse Resp B/P (MAP) Pulse Ox O2 Delivery O2 Flow Rate FiO2 09/24/16 10:23 Room Air 09/24/16 07:09 36.6 58 16 115/63 (80) 94 Room Air 09/23/16 23:30 Room Air 09/23/16 22:49 36.8 59 17 124/73 (90) 98 Room Air 09/23/16 19:43 Room Air General Appearance: WD/WN, no apparent distress Head: normocephalic Neck: supple, no adenopathy, no JVD Respiratory/Chest: chest non-tender, lungs clear Cardiovascular: regular rate, rhythm, no edema, no gallop Abdomen: normal bowel sounds, non distended, soft, + tenderness (at RUQ) Extremities: normal range of motion, non-tender, normal inspection Assessment & Plan under general anesthesia, laparoscopic cholecystectomy done, pt tolerated the procedure well, pt can be D/C home tomorrow if she tolerated diet, keep the dressing on for 4 days, she can take a shower on 09/28/2016, follow up me 1 week, .
[2016-09-24] MEDS: CHECK SCOPOLAMINE PATCH PLACEMENT SCH (16:00)
--- NOTE | 2016-09-24 16:21 | Anesthesiology Progress Note ---
Anesthesia Post Op Note Date & Time Sep 24, 2016 at 16:21 Vital Signs Pain Intensity: 0 Vital Signs Past 12 Hours Date Time Temp Pulse Resp B/P (MAP) Pulse Ox O2 Delivery O2 Flow Rate FiO2 09/24/16 16:15 69 18 138/61 96 Nasal Cannula 4 09/24/16 16:05 61 18 142/60 96 Oxymask 10 09/24/16 15:55 70 18 151/72 96 Oxymask 10 09/24/16 15:45 36.6 79 20 163/78 95 Oxymask 10 09/24/16 10:23 Room Air 09/24/16 07:09 36.6 58 16 115/63 (80) 94 Room Air Notes Mental Status: alert / awake / arousable, participated in evaluation Pt Amnestic to Procedure: Yes Nausea / Vomiting: adequately controlled Pain: adequately controlled Airway Patency, RR, SpO2: stable & adequate BP & HR: stable & adequate Hydration State: stable & adequate Anesthetic Complications: no major complications apparent
--- NOTE | 2016-09-24 17:48 | Progress Note ---
Internal Med Progress Note Date of Service: Sep 24, 2016. Provider Documentation: SUBJECTIVE: feels much better abdomen still feels bloated , and sore but severe pain and discomfort has resolved tolerating clears , no nausea or vomiting noted OBJECTIVE: Vital Signs-as noted below Exam: General-no sign of distress Eyes-sclera non icteric Lungs CTA Heart-regular S1/S2 Abdomen-soft, laparoscopic incision intact , bowel sound diminished Extremities-no lower ext edema , rash Neuro-AAO x3, no focal deficit Lab data as noted below. ASSESSMENT & PLAN: This is a 65 year old female with a PMH of HTN, HLD, recurrent PVCs, PACs, hx. of breast CA s/p lumpectomy, depression/anxiety, GERD presents with epigastric tenderness Cholecystitis patient presented with epigastric tenderness Abdominal CT performed - cholelithiasis - possible acute cholecystitis RUQ U/S unequivocal as well, gallbladder on the upper limits of normal HIDA scan : non visualization of gall bladder ; Scintigraphic findings are consistent with acute cholecystitis. general surgery consult appreciated s/p laparoscopic cholecystectomy today recovering well post op ; pain well controlled started on diet no able to pass gas yet asked to increase activity as tolerated HTN currently continue Metoprolol 50mg BID Hx. of PVCs recent stress echo in June 2016 - no ischemia noted continue b-domo Depression/Anxiety continue Sertraline and Ativan as prescribed DVT ppx SCDs; possible surgery FULL CODE DISPOSITION discharge home when medically stable Vital Signs: Date Time Temp Pulse Resp B/P (MAP) Pulse Ox O2 Delivery O2 Flow Rate FiO2 09/24/16 17:14 36.7 60 18 105/57 (73) 98 Nasal Cannula 2.0 09/24/16 16:40 3 Nasal Cannula 09/24/16 16:40 36.8 60 20 123/72 (89) 93 Nasal Cannula 3.0 09/24/16 16:25 36.4 63 18 118/56 96 Nasal Cannula 4 09/24/16 16:15 36.4 69 18 138/61 96 Nasal Cannula 4 09/24/16 16:05 61 18 142/60 96 Oxymask 10 09/24/16 15:55 70 18 151/72 96 Oxymask 10 09/24/16 15:45 36.6 79 20 163/78 95 Oxymask 10 09/24/16 10:23 Room Air 09/24/16 07:09 36.6 58 16 115/63 (80) 94 Room Air 09/23/16 23:30 Room Air 09/23/16 22:49 36.8 59 17 124/73 (90) 98 Room Air 09/23/16 19:43 Room Air
--- NOTE | 2016-09-24 20:41 | OPERATIVE REPORT ---
DATE OF OPERATION: 09/24/2016 PREOPERATIVE DIAGNOSIS: Acute cholecystitis, cholelithiasis. POSTOPERATIVE DIAGNOSIS: Same. PROCEDURE: Laparoscopic cholecystectomy. SURGEON: Angel Davila MD ANESTHESIA: General. ESTIMATED BLOOD LOSS: About 20 mL. FINDINGS: Acute cholecystitis, cholelithiasis. COMPLICATIONS: None. INDICATIONS FOR THE PROCEDURE: This is a 65-year-old female, who presented to the ED with few days of right upper quadrant pain. The patient had ultrasound showing some acute cholecystitis with gallstones and patient required to do laparoscopic cholecystectomy. I did possible open, possible cholangiogram. I did talk to the patient about the benefits, risks and alternate procedure. I indicated the risks may include but not limited to such as bleeding, infection, injury to common bile duct, injury to bowel, may need ERCP, myocardial infarction, DVT, stroke and even ; the patient understands. She signed informed consent and I answered all questions. DETAILS OF PROCEDURE: We brought the patient to the OR and put the patient in the supine position. The patient received SCD on bilateral legs to prevent DVT. Also, the patient received 600 mg of clindamycin for prophylactic antibiotic IV and the patient received general anesthesia without difficulty. The abdomen was prepped and draped in routine sterile fashion. After a timeout, I injected local anesthesia by using 1% lidocaine mixed with 0.5% Marcaine just above the umbilicus. I then made a small incision just above umbilicus, opened fascia and opened peritoneum under direct vision. I put a Alfredo trocar in, connected to CO2 to create pneumoperitoneum. Flow rate is 6 liter per minute. Pressure is not more than 14 mmHg. Once we got a nice pneumoperitoneum, we put a 10 mm camera in, looked around the abdomen. Shows no more findings in the stomach, small bowel or large bowel; however, the patient had significant inflammation on the gallbladder. The gallbladder wall shows significant edema and inflammation. Diagnosis of acute cholecystitis with cholelithiasis. Then we put another 3.5 mm trocar in the right upper quadrant. Once all trocars were in, I put a grasper in to hold the base of the gallbladder, put direction to the diaphragm and put another grasper in to hold the pouch of gallbladder, put the latter to expose the triangle of Calot. However, at this moment, patient's gallbladder with significant distention. I had to decompress the gallbladder by using a large needle and suctioned the fluid out. Once we decompressed, it was easy to hold the gallbladder. At this moment, the cystic duct was identified and mobilized. I put two 5 mm metal clips on the proximal cystic duct and one on the distal cystic duct. Then I used scissor to transect the cystic duct. Then the cystic artery was identified and mobilized. I put two 5 mm metal clips on the proximal cystic artery and one on the distal cystic artery. Then, I used scissor to transect the cystic artery. Then I used a Bovie to take down the gallbladder through the liver bed without difficulty. I rechecked; no active bleeding, no bile leak from the liver bed. Then we removed the gallbladder through the catch bag and then we reinserted the Alfredo trocar in, connected to CO2 to create pneumoperitoneum again and looked around the abdomen. No injury to bowel, no active bleeding or bile leak from the liver bed. Then we removed all trocars under direct vision. No active bleeding from trocar sites. The pneumoperitoneum was released. Then I closed the umbilical incision and fascial layer by using #1 Vicryl [id number] x2, closed the subcutaneous layer by using 2-0 Vicryl and closed skin by using 4-0 Vicryl. Another 3.5 mm trocar site, I closed skin only by using 4-0 Vicryl. We put the dressing on. All the instrument, needle and sponge count were correct x2 at the end of case. The specimen was sent to pathology. After the procedure, the patient was transferred to recovery room in stable condition. After the procedure, I did talk to the patient's and the patient's daughter about the OR finding and procedure we did; they understand. I attest to the content of the Intraoperative Record and any orders documented therein. Any exceptions are noted below. DIONY
[2016-09-24] MEDS: LORAZEPAM 1 MG TAB PO SCH (21:43)
[2016-09-25] MEDS: CHECK SCOPOLAMINE PATCH PLACEMENT SCH ×2 (00:18→08:05)
[2016-09-25 03:27] VITALS: BP 108/57; PULSE 58; TEMP 36.9; O2SAT 93
[2016-09-25] MEDS ORDERED: CLINDAMYCIN 600 MG/54 ML D5W IV ONE (06:00)
[2016-09-25 07:11] VITALS: BP 123/67; PULSE 71; TEMP 37; O2SAT 94
[2016-09-25] MEDS: PANTOprazole SOD 40 MG TAB PO SCH (09:42)
[2016-09-25] MEDS: ATORVASTATIN 10 MG TAB PO SCH (09:42)
[2016-09-25] MEDS: SERTRALINE HCL 50 MG TAB PO SCH (09:42)
[2016-09-25] MEDS: METOPROLOL TARTRATE 25 MG TAB PO SCH (09:42)
[2016-09-25] MEDS: LORAZEPAM 0.5 MG TAB PO SCH ×2 (09:45→14:47)
--- NOTE | 2016-09-25 09:53 | Surgery Progress Note ---
Surgery Progress Note Date of Service Sep 25, 2016. Subjective Post OP Day: 1 (s/p lap teresa) + feeling well, + flatus, + pain controlled, + diet (full liquids), No complaints, No chest pain, No SOB, No nausea, No vomiting Objective Vital Signs: Date Time Temp Pulse Resp B/P (MAP) Pulse Ox O2 Delivery O2 Flow Rate FiO2 09/25/16 07:35 Room Air 09/25/16 07:11 37.0 71 18 123/67 (85) 94 Room Air 09/25/16 03:27 36.9 58 16 108/57 (74) 93 Room Air 09/24/16 23:20 Room Air 09/24/16 23:12 95 Room Air 09/24/16 23:11 36.7 68 16 126/72 (90) 98 Nasal Cannula 3.0 09/24/16 20:43 Nasal Cannula 3.0 09/24/16 19:40 36.9 70 18 112/67 (82) 92 Room Air 09/24/16 18:40 36.5 63 18 112/67 (82) 92 Room Air 09/24/16 17:40 36.7 60 18 110/68 (82) 96 Nasal Cannula 2.0 09/24/16 17:14 36.7 60 18 105/57 (73) 98 Nasal Cannula 2.0 09/24/16 16:40 3 Nasal Cannula 09/24/16 16:40 36.8 60 20 123/72 (89) 93 Nasal Cannula 3.0 09/24/16 16:25 36.4 63 18 118/56 96 Nasal Cannula 4 09/24/16 16:15 36.4 69 18 138/61 96 Nasal Cannula 4 09/24/16 16:05 61 18 142/60 96 Oxymask 10 09/24/16 15:55 70 18 151/72 96 Oxymask 10 09/24/16 15:45 36.6 79 20 163/78 95 Oxymask 10 09/24/16 10:23 Room Air General Appearance: WD/WN, no apparent distress Head: normocephalic, atraumatic Neck: trachea midline Respiratory/Chest: no respiratory distress, no accessory muscle use Abdomen: non tender, non distended, soft Incision(s): clean, dry (dressings clean and dry), no erythema Assessment & Plan POD # 1 s/p lap teresa - vitals stable - minimal abdominal pain, tolerating full liquids - adequate urine output - passing flatus Plan: will advance diet to regular diet for lunch From surgical standpoint patient may be discharged home later today RX and discharge instructions will be given Follow-up with Dr. Davila 1 -[address] Pinto has seen and examined patient, agrees with above
[2016-09-25] MEDS: D5W AND 1/2NSS 1,000 ML IV SCH (10:41)
--- NOTE | 2016-09-25 10:49 | Discharge Instructions ---
Discharge Instructions Date of Service Sep 25, 2016. Admission Reason for Admission: Cholecystitis With Cholelithiasis Discharge Discharge Diagnosis / Problem: Same Discharge Goals Goal(s): Decrease discomfort, Improve function Activity Recommendations Activity Limitations: as noted below -You may remove your surgical dressings 4 days after surgery (remove Wednesday morning, 09/29/16). You have Steri-strips in place (small white band aids) which will fall off on their own over time. After dressings are removed, you may shower - do not scrub the incisions, just wash gently with warm, soapy water. Do not soak, as in a bathtub or swimming pool. -Do not drive until you are no longer taking narcotic pain medications and are completely pain-free -Do not lift anything greater than 20 lbs for the next 2 to 4 weeks. . Instructions / Follow-Up Instructions / Follow-Up -You will need to follow up with Dr. Davila in clinic in approximately 2 weeks for a post op check. Please call to schedule this appointment. Current Hospital Diet Patient's current hospital diet: Regular Diet Discharge Diet Recommended Diet: Regular Diet Procedures Procedures Performed: Laparoscopic Cholecystectomy Pending Studies Studies pending at discharge: yes List of pending studies: Gallbladder pathology - will be discussed at follow up appointment Medical Emergencies . Who to Call and When: Medical Emergencies: If at any time you feel your situation is an emergency, please call 911 immediately. . Non-Emergent Contact Non-Emergency issues call your: Primary Care Provider, Surgeon Call Non-Emergent contact if: temperature is above 101, your pain is not controlled, your pain is worsening, wound has increased drainage, wound has increased redness, wound has increased pain . "Provider Documentation" section prepared by Denise Pinto. . VTE Core Measure Inpt VTE Proph given/why not?: Enoxaparin (Lovenox)SQ, SCD's [place] Drug Monitoring Program Search Results: patient reviewed within database, no issues identified
[2016-09-25 10:51] VITALS: BP 115/49; PULSE 57; TEMP 36.7; O2SAT 91
[2016-09-25 13:53] VITALS: BP 115/49; PULSE 57; TEMP 36.7; O2SAT 91
--- NOTE | 2016-09-25 13:57 | Anesthesiology Progress Note ---
Anesthesia Post Op Note Date & Time Sep 25, 2016 at 13:56 Vital Signs Pain Intensity: 0.0 Vital Signs Past 12 Hours Date Time Temp Pulse Resp B/P (MAP) Pulse Ox O2 Delivery O2 Flow Rate FiO2 09/25/16 10:51 36.7 57 16 115/49 (71) 91 Room Air 09/25/16 07:35 Room Air 09/25/16 07:11 37.0 71 18 123/67 (85) 94 Room Air 09/25/16 03:27 36.9 58 16 108/57 (74) 93 Room Air Notes Mental Status: alert / awake / arousable, participated in evaluation Pt Amnestic to Procedure: Yes Nausea / Vomiting: adequately controlled Pain: adequately controlled Airway Patency, RR, SpO2: stable & adequate BP & HR: stable & adequate Hydration State: stable & adequate Anesthetic Complications: no major complications apparent
--- NOTE | 2016-09-25 14:54 | Progress Note ---
Internal Med Progress Note Date of Service: Sep 25, 2016. Provider Documentation: SUBJECTIVE: tolerating diet well , no complain of pain or discomfort able to pass gas , no bowel movement yet evaluated by surgical team stable to be discharged home today OBJECTIVE: Vital Signs-as noted below Exam: General-no sign of distress Eyes-sclera non icteric Lungs CTA Heart-regular S1/S2 Abdomen-soft, laparoscopic incision intact , bowel sound active Extremities-no lower ext edema , rash Neuro-AAO x3, no focal deficit Lab data as noted below. ASSESSMENT & PLAN: This is a 65 year old female with a PMH of HTN, HLD, recurrent PVCs, PACs, hx. of breast CA s/p lumpectomy, depression/anxiety, GERD presents with epigastric tenderness Cholecystitis patient presented with epigastric tenderness Abdominal CT performed - cholelithiasis - possible acute cholecystitis RUQ U/S unequivocal as well, gallbladder on the upper limits of normal HIDA scan : non visualization of gall bladder ; Scintigraphic findings are consistent with acute cholecystitis. general surgery consult appreciated s/p laparoscopic cholecystectomy POD #1 recovering well post op ; pain well controlled started on diet advanced to solid , tolerating well able to pass gas; no BM yet stable to be discharged home by surgery pt is asked to take stool softener /fiber supplement till having normal bowel movement contact family physician /surgery with any sign of worsening abdominal pain , unable to have bowel movement in next 24-48 hrs HTN continue Metoprolol 50mg BID Hx. of PVCs recent stress echo in June 2016 - no ischemia noted continue b-domo Depression/Anxiety continue Sertraline and Ativan as prescribed DVT ppx SCDs and ambulate FULL CODE DISPOSITION discharge home today Vital Signs: Date Time Temp Pulse Resp B/P (MAP) Pulse Ox O2 Delivery O2 Flow Rate FiO2 09/25/16 13:53 36.7 57 16 91 Room Air 09/25/16 10:51 36.7 57 16 115/49 (71) 91 Room Air 09/25/16 07:35 Room Air 09/25/16 07:11 37.0 71 18 123/67 (85) 94 Room Air 09/25/16 03:27 36.9 58 16 108/57 (74) 93 Room Air 09/24/16 23:20 Room Air 09/24/16 23:12 95 Room Air 09/24/16 23:11 36.7 68 16 126/72 (90) 98 Nasal Cannula 3.0 09/24/16 20:43 Nasal Cannula 3.0 09/24/16 19:40 36.9 70 18 112/67 (82) 92 Room Air 09/24/16 18:40 36.5 63 18 112/67 (82) 92 Room Air 09/24/16 17:40 36.7 60 18 110/68 (82) 96 Nasal Cannula 2.0 09/24/16 17:14 36.7 60 18 105/57 (73) 98 Nasal Cannula 2.0 09/24/16 16:40 3 Nasal Cannula 09/24/16 16:40 36.8 60 20 123/72 (89) 93 Nasal Cannula 3.0 09/24/16 16:25 36.4 63 18 118/56 96 Nasal Cannula 4 09/24/16 16:15 36.4 69 18 138/61 96 Nasal Cannula 4 09/24/16 16:05 61 18 142/60 96 Oxymask 10 09/24/16 15:55 70 18 151/72 96 Oxymask 10 09/24/16 15:45 36.6 79 20 163/78 95 Oxymask 10
--- NOTE | 2016-09-25 14:56 | Discharge Summary ---
Discharge Summary Date of Service Sep 25, 2016. Discharge Summary Admission Date: Sep 23, 2016 at 07:54 Discharge Date: Sep 25, 2016 Discharge Disposition: Home Principal Diagnosis: Cholecystitis With Cholelithiasis Procedures: LAPAROSCOPIC CHOLECYSTECTOMY Consultations: GENERAL SURGERY Medication Reconciliation Continued Medications: Acetaminophen (Tylenol) 325 Mg Tab 650 MG PO DIRECTED PRN for Pain or Fever, TAB Acetaminophen (Tylenol) 500 Mg Tab 1000 MG PO DIRECTED PRN for Pain or Fever, TAB Atorvastatin (Lipitor) 10 Mg Tab 10 MG PO DAILY, TAB Lorazepam (Ativan) 0.5 Mg Tab 0.5 MG PO BID, TAB Lorazepam (Ativan) 1 Mg Tab 1 MG PO HS, TAB Meclizine Hcl (Meclizine Hcl) 25 Mg Tab 25 MG PO TID PRN for Dizziness or Vertigo Metoprolol Tartrate (Lopressor) (Lopressor) 50 Mg Tab 25 MG PO BID, TAB TAKE HALF OF A 50MG TABLET Omeprazole (Prilosec) 20 Mg Capcr 20 MG PO DAILY, CAP Sertraline (Zoloft) 50 Mg Tab 50 MG PO DAILY, TAB Referrals At Discharge Follow up Referrals: Physician Referral - 10/09/16 with Yamil Horn M.D. (MEDICAL) Admission Information HPI (per Admitting provider): This is a 65 year old female with a PMH of HTN, HLD, recurrent PVCs, PACs, hx. of breast CA s/p lumpectomy, depression/anxiety, GERD presents with epigastric tenderness - states that she had this last night after dinner and was made worse late night after eating some chips. The pain was described as a sharp pain across her epigastric region. Initially she thought it might be related to reflux - but she states this is usually controlled with over the counter Prilosec. The pain was associated with nausea, but no vomiting. Denies diarrhea. No chest pain or shortness of breath; denies fevers/chills. Presented to the ER: had an abdominal CT showing cholelithiasis and possible acute cholecystitis. RUQ U/S was then performed and gallbladder again, showing possible cholecystitis. Was given morphine and Zofran in the ER; states her pain has improved slightly, but nausea is still present. Physical Exam (per Admitting): General Appearance: + mild distress (secondary to pain and nausea) Head: normocephalic, atraumatic Eyes: normal inspection ENT: hearing grossly normal Neck: supple Respiratory/Chest: chest non-tender, lungs clear, normal breath sounds, no respiratory distress, no accessory muscle use Cardiovascular: regular rate, rhythm, no edema, no murmur, normal peripheral pulses Abdomen/GI: soft, + tenderness (nondistended, tenderness at epigastric region) Back: no CVA tenderness Extremities/Musculoskelatal: normal capillary refill, no pedal edema Neurologic/Psych: no motor/sensory deficits, alert, normal mood/affect Skin: normal color Lymphatic: no adenopathy Hospital Course This is a 65 year old female with a PMH of HTN, HLD, recurrent PVCs, PACs, hx. of breast CA s/p lumpectomy, depression/anxiety, GERD presents with epigastric tenderness Cholecystitis patient presented with epigastric tenderness Abdominal CT performed - cholelithiasis - possible acute cholecystitis RUQ U/S unequivocal as well, gallbladder on the upper limits of normal HIDA scan : non visualization of gall bladder ; Scintigraphic findings are consistent with acute cholecystitis. general surgery consult appreciated s/p laparoscopic cholecystectomy POD #1 recovering well post op ; pain well controlled started on diet advanced to solid , tolerating well able to pass gas; no BM yet stable to be discharged home by surgery pt is asked to take stool softener /fiber supplement till having normal bowel movement contact family physician /surgery with any sign of worsening abdominal pain , unable to have bowel movement in next 24-48 hrs HTN continue Metoprolol 50mg BID Hx. of PVCs recent stress echo in June 2016 - no ischemia noted continue b-domo Depression/Anxiety continue Sertraline and Ativan as prescribed DVT ppx SCDs and ambulate FULL CODE DISPOSITION discharge home today Total time spent on discharge = 35 mins This includes examination of the patient, discharge planning, medication reconciliation, and communication with other providers. Discharge Instructions Discharge Instructions Date of Service Sep 25, 2016. Admission Reason for Admission: Cholecystitis With Cholelithiasis Discharge Discharge Diagnosis / Problem: Same Discharge Goals Goal(s): Decrease discomfort, Improve function Activity Recommendations Activity Limitations: as noted below -You may remove your surgical dressings 4 days after surgery (remove Wednesday morning, 09/29/16). You have Steri-strips in place (small white band aids) which will fall off on their own over time. After dressings are removed, you may shower - do not scrub the incisions, just wash gently with warm, soapy water. Do not soak, as in a bathtub or swimming pool. -Do not drive until you are no longer taking narcotic pain medications and are completely pain-free -Do not lift anything greater than 20 lbs for the next 2 to 4 weeks. . Instructions / Follow-Up Instructions / Follow-Up -You will need to follow up with Dr. Davila in clinic in approximately 2 weeks for a post op check. Please call to schedule this appointment. Current Hospital Diet Patient's current hospital diet: Regular Diet Discharge Diet Recommended Diet: Regular Diet Procedures Procedures Performed: Laparoscopic Cholecystectomy Pending Studies Studies pending at discharge: yes List of pending studies: Gallbladder pathology - will be discussed at follow up appointment Medical Emergencies . Who to Call and When: Medical Emergencies: If at any time you feel your situation is an emergency, please call 911 immediately. . Non-Emergent Contact Non-Emergency issues call your: Primary Care Provider, Surgeon Call Non-Emergent contact if: temperature is above 101, your pain is not controlled, your pain is worsening, wound has increased drainage, wound has increased redness, wound has increased pain . "Provider Documentation" section prepared by Denise Pinto. . VTE Core Measure Inpt VTE Proph given/why not?: Enoxaparin (Lovenox)SQ, SCD's [place] Drug Monitoring Program Search Results: patient reviewed within database, no issues identified Addendum: Arcelia Blanton M.D. on 09/25/16 @ 11:24 Discharge Inst - Addendum Addendum Notes: MEDICINE FOLLOW UP : 10/09/2016 1:20 PM Yamil Horn MD [facility] Addendum Provider: Addendum Notes were documented by provider Arcelia Blanton. Additional Copies To Yamil Horn M.D. (MEDICAL)
== END 2016-09-25 15:17 | disposition home or self-care (01) | DRG 419 ==
LOC: C.EDB 02:40 → C.MSW 07:54 → ENRESERV 08:27
PROVIDERS: ADMIT Family Medicine; ATTEND Hospitalist
PROC: 0FT44ZZ Resection of Gallbladder, Percutaneous Endoscopic Approach (ICD-10-PCS; principal; 2016-09-24 11:00)
DX: K80.00 Calculus of gallbladder with acute cholecystitis without obstruction (principal); I49.3 Ventricular premature depolarization; I10 Essential (primary) hypertension; E78.5 Hyperlipidemia, unspecified; K21.9 Gastro-esophageal reflux disease without esophagitis; F41.9 Anxiety disorder, unspecified; F32.9 Major depressive disorder, single episode, unspecified; Z96.643 Presence of artificial hip joint, bilateral; Z79.899 Other long term (current) drug therapy

== ENCOUNTER → 2016-12-10 | Outpatient (CLI) | payer OTHER ==
[~2016-12-10] MED LIST changes: +ACET-1256 PO; +ACET-1311 PO; +ATOR10TA88 PO; +PRLSR20 PO
--- NOTE | 2016-12-11 13:43 | MAMMOGRAPHY REPORT ---
BILATERAL DIGITAL SCREENING MAMMOGRAM TOMOSYNTHESIS WITH CAD: 12/10/2016 CLINICAL HISTORY: Asymptomatic. Personal history of breast cancer. TECHNIQUE: Breast tomosynthesis in addition to standard 2D mammography was performed. Current study was also evaluated with a Computer Aided Detection (CAD) system. COMPARISON: Comparison is made to exams dated: 10/18/2015 mammogram, 08/04/2013 mammogram, 08/04/2011 m ammogram, 07/07/2010 mammogram, 08/05/2009 mammogram - [facility], and 07/10/2008. BREAST COMPOSITION: There are scattered areas of fibroglandular density in both breasts. FINDINGS: No suspicious masses, calcifications, or areas of architectural distortion are noted in ei ther breast. There has been no significant interval change compared to prior exams. There are stable postsurgical changes in the left medial posterior breast from prior lumpectomy, including surgical c lips and coarse benign dystrophic calcifications at the lumpectomy bed. A biopsy marker clip is agai n noted in the left upper outer quadrant anteriorly. Scattered bilateral benign-appearing calcificat ions are not significantly changed. Asymmetry in the left lateral posterior breast is stable. IMPRESSION: ACR BI-RADS CATEGORY 2: BENIGN There is no mammographic evidence of malignancy. A 1 year screening mammogram is recommended. The pa tient will receive written notification of the results. Approximately 10% of breast cancers are not detected with mammography. A negative mammographic report should not delay biopsy if a clinically suggestive mass is present. Sara Oglesby M.D. /:12/10/2016 14:50:32 [employer] Worker Apprentice: Leanne ALEMAN(David)(M), [facility] letter sent: Normal 1/2 BI-RADS Code: ACR BI-RADS Category 2: Benign
== END | disposition home or self-care (01) ==
LOC: C.MAMM 13:17
PROVIDERS: ATTEND Family Medicine
DX: Z12.31 Encounter for screening mammogram for malignant neoplasm of breast (principal); Z85.3 Personal history of malignant neoplasm of breast; Z08 Encounter for follow-up examination after completed treatment for malignant neoplasm

== ENCOUNTER 2021-06-30 06:15 | Observation (INO) ==
--- NOTE | 2021-06-10 14:03 | PAT Medication Instructions ---
Medication Instructions Date of Service June 10, 2021 Home Medications Medication Instructions Recorded tramadol 50 mg tablet 50 mg PO Q8H PRN #30 tab 04/16/21 acetaminophen 325 mg capsule (Tylenol) 325 mg PO QID PRN lorazepam 1 mg tablet 0.5 mg PO BID metoprolol tartrate 25 mg tablet 25 mg PO BID omeprazole 20 mg capsule,delayed release 20 mg PO QAM sertraline 25 mg tablet (Zoloft) 25 mg PO HS tramadol 50 mg tablet 50 mg PO Q8H PRN atorvastatin 20 mg tablet 20 mg PO HS lorazepam 1 mg tablet 1 mg PO HS Take morning of surgery With a small sip of water, OTHERWISE NOTHING TO EAT OR DRINK AFTER MIDNIGHT: acetaminophen 325 mg capsule (Tylenol) 325 mg PO QID PRN (okay to take up to 4 hours prior to surgery if needed) lorazepam 1 mg tablet 0.5 mg PO BID metoprolol tartrate 25 mg tablet 25 mg PO BID omeprazole 20 mg capsule,delayed release 20 mg PO QAM tramadol 50 mg tablet 50 mg PO Q8H PRN (okay to take up to 4 hours prior to enrique dante if needed) Take evening before surgery acetaminophen 325 mg capsule (Tylenol) 325 mg PO QID PRN (if needed) lorazepam 1 mg tablet 0.5 mg PO BID metoprolol tartrate 25 mg tablet 25 mg PO BID sertraline 25 mg tablet (Zoloft) 25 mg PO HS tramadol 50 mg tablet 50 mg PO Q8H PRN (if needed) atorvastatin 20 mg tablet 20 mg PO HS lorazepam 1 mg tablet 1 mg PO HS Other Notes If you have any questions please call us at [phone] or [phone] or [phone] or [phone]
--- NOTE | 2021-06-11 12:30 | Anesthesiology Consultation ---
Date of Service June 11, 2021 Assessment & Plan (1) Encounter for pre-operative examination: Chart Review Chart Review: Acceptable Risk for Surgery (pending final cardio clearance and preop Covid testing results ) and Patient seen in Pre Admission Testing -Will write note to cardio inquiring about final cardio approval prior to surgery and to ensure no further work up is necessary -Discussed with Dr. Oconnor- due to symptomatic PACs/PVCs with palpitations and chronic chest pain as well as BPPV with vestibular instability and balance problems- patient is NOT a Same Day Joint candidate - Check BSG AM DOS Per PAT appt on 06/11/21, patient denies any recent travel or large group activities. No known Covid positive exposures or Covid related symptoms. No known Covid infection in the past 90 days. Pt is vaccinated for Covid Preop Covid testing scheduled 06/26/21= will await results. Educated on importance of self quarantining, social distancing and wearing mask in public for the patient one week prior to surgery and after Covid testing done Pt seen by cardio 04/29/21= seen for routine follow-up. Patient complains of left-sided chest discomfort that radiates to her neck, jaw and down her left arm. Does note that she has bad neck and back which is caused her discomfort in the past however symptoms are little different now. Cardio aware of upcoming shoulder replacement. Due to chest pain/pressurethat radiates into her neck and jaw as well as down her left arm-Notes dyspnea and fatiguesymptoms concerning for ischemia. Nuclear stress test and echocardiogram ordered. Hypertensionnormally well controlledlikely elevated due to pain. Mild concentric LVH on last echo. Palpitations secondary to increased cardiac awareness and PACs. Symptoms are generally well controlled however with her worsening pain she has noticed more palpitations in the morning. May consider switching from Toprol tartrate to succinate after stress test. Dyslipidemiauncontrolled. Atorvastatin changed to Crestor. Follow-up in 3 months. History Surgery Operation Date: 06/30/21 10:40 Proposed Procedures p Right Reverse Total Shoulder Arthroplasty - Jesse Cruz DO Height/Weight Height: 5 ft 3.5 in Weight: 85.6 kg Allergies Allergy/AdvReac Type Severity Reaction Status Date / Time buspirone Allergy Intermediate Rash Verified 06/10/21 10:53 aspirin Allergy Unknown GI upset Verified 06/11/21 12:18 and epistaxis clavulanic acid Allergy Unknown ALLERGY TO Verified 06/10/21 10:53 "BETA-LACTAMASE" INHIBITORS Macrolide Antibiotics Allergy Unknown Rash Verified 06/10/21 10:53 Penicillins Allergy Unknown Unknown Verified 06/10/21 10:53 sulbactam Allergy Unknown ALLERGY TO Verified 06/10/21 10:53 "BETA-LACTAMASE INHIBITORS" Sulfa (Sulfonamide Allergy Unknown Unknown Verified 06/11/21 12:18 Antibiotics) codeine AdvReac Mild SWEATS,ARSENIO Verified 06/10/21 10:53 TS Medications Home Medications Medication Instructions Recorded Confirmed Last Taken acetaminophen 325 mg capsule 325 mg PO QID PRN 04/16/21 06/11/21 Unknown (Tylenol) lorazepam 1 mg tablet 0.5 mg PO BID tab 04/16/21 06/11/21 Unknown metoprolol tartrate 25 mg tablet 25 mg PO BID 04/16/21 06/11/21 Unknown omeprazole 20 mg capsule,delayed 20 mg PO QAM 04/16/21 06/11/21 Unknown release sertraline 25 mg tablet (Zoloft) 25 mg PO HS 04/16/21 06/11/21 Unknown tramadol 50 mg tablet 50 mg PO Q8H PRN #30 tab 04/16/21 06/11/21 Unknown atorvastatin 20 mg tablet 20 mg PO HS 06/10/21 06/11/21 Unknown lorazepam 1 mg tablet 1 mg PO HS 06/10/21 06/11/21 Unknown Past Medical History Medical History (Updated 06/11/21 @ 16:10 by Dorothy Brownlee PA-C) Anxiety Benign paroxysmal positional vertigo (11/04/12) Ongoing and chronic issue "Vestibular instability and balance problems" per cardio S records Has been to vestibular center- felt vertigo due to floaters in eyes Borderline diabetes Diet control Breast cancer 2001 > lumpectomy left > radiation Denies left UE restriction Depression Deviated nasal septum Endometrial cancer 2009 > hysterectomy - no chemo and XRT GERD (gastroesophageal reflux disease) Controlled and stable with meds Heart palpitations Follows with [facility] Secondary to symptomatic PACs and short runs of PAT Also history PVCs History of COVID-10 Nov 2020 > very mild symptoms Hyperlipidemia Hypertension Mitral regurgitation Mild per 04/2021 ECHO Shortness of breath Mostly just happens after taking meds Stress incontinence Exercise / Class Metabolic Activity III < 4 Walking/Shop/Light housework (one flight of stairs - no chest pain, mild SOB ) Past Family History Family History Uncle Diabetes Grandmother Colon cancer Past Surgical History Surgical History History of bilateral tubal ligation History of cataract surgery bilat History of cholecystectomy History of colonoscopy History of dilatation and curettage History of lumpectomy of left breast History of total hip arthroplasty bilat Hx of hysterectomy Hx of oral surgery Hx of vitrectomy Past Anesthesia History No Hx of Anesthesia Complications (with exception to awareness during DENEEN ) and No Family Hx of Anesthesia Complications History of PONV No Hx of Motion Sickness and History of PONV (improved Zofran ) Social History Smoking Status: Never smoker Do You Dip or Chew Tobacco: No Hx Alcohol Use: No Hx Substance Use: No substance use type: does not use Review of Systems Occ palpitations- chronic and ongoing - associated chest pain with palpitations x 30 years Occ SOB at rest (after taking meds)- discussed with numerous providers- feels anxiety related Chronic cough- ongoing since Covid Hx of blood transfusion with DENEEN Patient denies wheezing No hx of seizures, stroke, [place], apnea/snoring. No hx of blood clots Physical Exam Vital Signs VITALS BP 127/68 P 57 TEMP 98.4 SP02 96% RESP 16 Constitutional no acute distress ENMT Mouth: no TMJ clicking Thyromental Distance: < 3.5 Finger Breadths (3.0) Mallampati Class: III Full dentures on top Missing all bottom teeth except three bottom front teeth Neck + limited neck extension Respiratory normal respiratory effort; no respiratory distress Auscultation: lungs clear to auscultation bilaterally; no wheezes Cardiovascular Rate/Rhythm: regular rate and regular rhythm Heart Sounds: no murmur Vessels: no carotid bruit Musculoskeletal Spine: + pain with cervical ROM Extremities: extremities normal to inspection Psychiatric Orientation: alert Lab Results Anesthesia Preop Results Results Anesthesia Widget: WBC 8.97 K/uL (4.8-10.8) 06/11/21 Hgb 14.6 g/dL (12.0-16.0) 06/11/21 Hct 43.3 % (37-47) 06/11/21 Plt 285 K/uL (130-400) 06/11/21 Na 138 mmol/L (136-145) 06/11/21 K 4.2 mmol/L (3.5-5.1) 06/11/21 Cl 103 mmol/L (98-107) 06/11/21 CO2 28 mmol/L (21-32) 06/11/21 BUN 17 mg/dl (6-23) 06/11/21 Creat 0.85 mg/dl (0.6-1.2) 06/11/21 Glucose Level 97 mg/dl (70-99(Fasting)) 06/11/21 PT 10.5 Seconds (9.0-12.0) 06/11/21 PTT 27.4 Seconds (21.0-31.0) 06/11/21 INR 1.0 (0.9-1.1) 06/11/21 HA1c 5.4 % (4.5-5.6) 06/11/21 Blood Type A Positive 06/11/21 Antibody Screen NEGATIVE 06/11/21 Testing Electrocardiogram Date: 04/29/21 Findings: + SB @ (58bpm ) and + no change from (July 15, 2020 per cardio ) RBBB. Chest X-Ray Date: 06/11/21 Findings: + NAD FINDINGS: No pneumothorax. No pleural effusions. The cardiac silhouette remains mildly enlarged. Prior cholecystectomy. The lungs are clear. Mild S-shaped scoliosis of the thoracolumbar spine. Postoperative changes again noted within the left medial breast. IMPRESSION: 1. Stable mild cardiomegaly. 2. Otherwise, no acute process within the chest. Echocardiogram Date: 05/08/21 EF: 60-64% LV Function: normal RWMA: + none Other Findings: + LVH (borderline/concentric ) and + diastolic dysfunction (Grade II ) Sinus bradycardia during examination. LA moderately enlarged Mild TR. Mild secondary MR. Estimated PASP 36mmHg. Stress Test Date: 05/08/21 Type: nuclear Myocardial perfusion is normal. Overall LV systolic function was normal without RWMA. LVEF 65%. No changed compared to previous study.
[~2021-06-30 06:15] MED LIST changes: -ACET-1256 PO; -ACET-1311 PO; +ACETAMINOPHEN 500 MG TAB PO SCH; -ATOR10TA88 PO; -ATV/1 PO; +FAMOTIDINE 20 MG TAB PO SCH; +GABAPENTIN 300 MG CAP PO SCH; +Ketorolac (*for OR use only*) 30 MG, dexAMETHasone 4 MG, KETAMINE HCL (**OR use only) 1... INFIL SCH; -LORA-741 PO; +LR 15ML/HR IV SCH; +LR 60ML/HR IV SCH; -MECL1TAB42 PO; -METO50TA16 PO; -PRLSR20 PO; -SERT50TA PO; +TRANEXAMIC ACID 1,000 MG **IV Intra-op IV SCH; +TRANEXAMIC ACID 1,000 MG **IV Pre-op IV SCH; +ceFAZolin 2000MG 2,000 MG/15 ML SYR IV SCH; +dexAMETHasone 4 MG TAB PO SCH
[2021-06-30] MEDS ORDERED: BUPIVACAINE 0.5 % 5 MG/1 ML PF 10ML VIAL ONE (06:23)
--- NOTE | 2021-06-30 06:36 | History & Physical Bridge Note ---
Date of Service June 30, 2021 History & Physical Bridge Note I have examined the patient, reviewed the History & Physical and in the interval since the performance of the History & Physical I have noted the following changes of clinical significance: no changes noted
[2021-06-30] MEDS ORDERED: MIDAZOLAM HCL 1 MG/ML 2ML VIAL ONE (08:01)
[2021-06-30] MEDS ORDERED: fentaNYL citrate 100 MCG/2 ML VIAL ONE (08:02)
[2021-06-30] MEDS ORDERED: PROPOFOL IV EMULSION 10 MG/ML 20 ML VIAL IV ONE (08:12)
[2021-06-30] MEDS ORDERED: DEXAMETHASONE SOD INJ 4 MG/ML VIAL ONE (08:12)
[2021-06-30] MEDS ORDERED: LIDOCAINE 2% 2 ML VIAL/AMP(20MG/ML) INFIL ONE (08:12)
[2021-06-30] MEDS ORDERED: ONDANSETRON INJ 2 MG/ML 2 ML VIAL ONE ×2 (08:12→08:32)
[2021-06-30] MEDS ORDERED: ORTHO JOINT ANESTHETIC ONE (08:25)
[2021-06-30] MEDS ORDERED: GLYCOPYRROLATE 0.2 MG/ML VIAL ONE (09:23)
[2021-06-30] MEDS ORDERED: ePHEDrine sulfate 50 MG/ML AMP ONE (09:23)
--- NOTE | 2021-06-30 09:54 | Operative Report ---
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 I identified the patient and participated in the time-out.: Yes Procedure Operation Date: 06/30/21 08:50 Actual Procedures p Right Reverse Total Shoulder Arthroplasty(Right) with open biceps tenodesis as a distinct and separate procedure (modifier 59) Jesse Cruz DO Surgeon Jesse Cruz DO Medical Receptionist Medical Assistant Jesse Prasad PAC Estimated Blood Loss 150 Findings Consistent with Post-Op Diagnosis Specimens Right humeral head Complications none Disposition Disposition: Recovery Room Indications Sharon is a pleasant 70-year-old female whose been dealing with chronic increasing right shoulder pain. X-rays and clinical examination have been diagnostic for advanced osteoarthritis of the right shoulder. After failing conservative treatment, she elected proceed with a right reverse shoulder arthroplasty. Description of Procedure A CPT code modifier 59: The long head of the biceps tendon was enlarged and inflamed consistent with tendinopathy. A tenodesis was opted. This was a separate and distinct portion of the procedure. For these reasons, a CPT code modifier 59 will be added to this case. Implants used: I used a [employer] Comprehensive reverse total shoulder arthroplasty system with a size 9 press fit micro humeral stem, a standard humeral tray and a standard humeral bearing, a 25 mm small augment baseplate with a 6.5 mm central screw and superior and inferior locking screws, and a size 40 mm eccentric glenosphere. Sharon arrived at [facility] for the above procedure. She was seen in the preoperative holding area and the operative extremity was identified and signed. She was given a preoperative antibiotic, TXA, and an interscalene nerve block. She was taken back to the operating room, laid on table in supine position, and put under general anesthesia. She was then put into the beachchair position. The shoulder was then prepped and draped in sterile fashion. A timeout was done and the patient and the operative extremity was properly identified. A deltopectoral approach was used. Dissection was taken down through the fascia and the deltoid was retracted laterally and the conjoined tendon was retracted medially. The anterior shoulder was exposed. The biceps groove was opened up and the biceps tendon was examined extensively. The biceps tendon demonstrated enlargement and inflammatory changes consistent with longstanding inflammation in the context of osteoarthritis and cuff arthropathy. The long head of the biceps tendon was then tenodesed to the upper border of the pectoralis major. This was a separate and distinct portion of the procedure. The subscapularis was then directly released off the lesser tuberosity with a peel technique. The inferior capsule was released and the humeral head was dislocated. A canal finding reamer was sent down the center of the humeral canal. Sequential reaming up to a size 9 reamer was done. Off that reamer, a proximal humeral resection guide was placed. The proximal humerus was resected at 135 of inclination and 25 of retroversion. Osteophytes were then removed and the glenoid was exposed. Time was spent doing a complete capsular and labral release. The glenoid guide was then placed in the inferior aspect of the glenoid. A 3.2 mm Steinmann pin was then placed into the glenoid vault at 10 of inclination. The glenoid baseplate was then reamed. The final size 25 mm small augment baseplate was then impacted in the place. A 6.5 mm central screw was then placed followed by superior and inferior locking screws. A 40 mm eccentric glenosphere was then impacted into place. Surrounding soft tissues were then injected with 100 cc an orthopedic pain control cocktail. The proximal humerus was then exposed. Sequential broaching of the humerus up to a size 9 broach was done. Off that broach a standard humeral tray was trialed. The shoulder was then reduced, brought through a full range of motion, and felt to be stable. The shoulder was then dislocated and the broach was removed. The final size 9 micro press-fit humeral stem was then impacted into place. A standard humeral bearing was then snapped onto a standard humeral tray. The humeral tray was then impacted onto the humeral stem. The shoulder was once again reduced, brought through a full range of motion, and felt to be stable. Subscapularis was retracted and unable to be repaired. A dilute betadyne lavage was then done for 3 minutes. The joint was then irrigated with normal saline solution. Hemostasis was obtained. The interval was closed with 2-0 Vicryl suture. The skin was then closed with 2-0 Vicryl and elizabeth. A Silverlon dressing was placed and the arm was rested in a regular arm sling. She was then extubated and transferred to a hospital bed. She taken to the postanesthesia care unit in stable condition. She tolerated the procedure well. Jesse Prasad PA-C, was present for the entire procedure. He was critical for patient positioning, prepping, draping, retraction exposure, wound closure and application of sterile dressing. I attest to the content of the Intraoperative Record and any orders documented therein. Any exceptions are noted below.
--- NOTE | 2021-06-30 11:00 | Anesthesiology Progress Note ---
Date of Service June 30, 2021 Anesthesia Post Procedure Vital Signs Vital Signs: Temp Pulse Resp BP Pulse Ox 06/30/21 10:50 36.1 C L 65 19 121/56 L 99 06/30/21 10:40 57 L 17 119/62 97 06/30/21 10:30 58 L 18 113/61 99 06/30/21 10:20 36.7 C 71 18 150/65 H 96 06/30/21 06:40 36.9 C 62 20 154/69 H 96 Pain Intensity Right Shoulder: Pain Intensity: 4 Transfer of Care Handoff Completed per policy Notes Mental Status: alert / awake / arousable Patient Amnestic to Procedure: Yes Nausea / Vomiting: adequately controlled Pain: adequately controlled Airway Patency, RR, SpO2: stable & adequate BP & HR: stable & adequate Hydration State: stable & adequate Anesthetic Complications: no major complications apparent
--- NOTE | 2021-06-30 11:17 | XRay Report ---
XR shoulder RT min 2V routine HISTORY: 70 years-old Female Post shoulder surgery right shoulder total joint arthroplasty COMPARISON: Shoulder radiographs 06/11/2021 TECHNIQUE: 2 views of the right shoulder FINDINGS: Reverse right shoulder total joint arthroplasty with overlying skin elizabeth, expected postoperative s oft tissue swelling with deep tissue air. Moderate AC joint osteoarthritis. No acute fracture, disloc ation or unexpected opaque foreign body. IMPRESSION: Reverse right shoulder total joint arthroplasty with expected postoperative changes. ACT 112: Negative or not required by law. The above report was generated using voice recognition software. It may contain grammatical, syntax o r spelling errors. Electronically signed by: Juve Hugo M.D. 06/30/2021 11:16 AM
[2021-06-30] MEDS ORDERED: HYDROmorphone INJ 0.5 MG/0.5 ML SYR IV PRN (11:20)
[2021-06-30] MEDS ORDERED: NALOXONE HCL 0.4 MG/1 ML VIAL/CARP IV PRN (11:20)
[2021-06-30] MEDS ORDERED: METOCLOPRAMIDE HCL INJ 5 MG/ML 2 ML VIAL IV PRN (11:20)
[2021-06-30] MEDS ORDERED: oxyCODONE HCL IR 5 MG TAB (IMMEDIATE RELEASE) PO PRN (11:20)
[2021-06-30] MEDS ORDERED: MAGNESIUM HYDROXIDE SUSP 30 ML UDC PO PRN (11:20)
[2021-06-30] MEDS ORDERED: bisacodyL 10 MG SUPP PR PRN (11:20)
[2021-06-30] MEDS: ONDANSETRON INJ 2 MG/ML 2 ML VIAL IV PRN ×2 (11:55→19:31)
[2021-06-30] MEDS: KETOROLAC TROMETHAMINE 15 MG/ML VIAL IV SCH ×3 (12:32→23:44)
[2021-06-30] MEDS ORDERED: ROCURONIUM BROMIDE 10 MG/ML 5 ML VIAL IV ONE (12:51)
[2021-06-30] MEDS: SODIUM CHLORIDE 0.9% 1000ML 1,000 ML IV SCH ×2 (13:44→23:43)
[2021-06-30] MEDS ORDERED: Nursing to Pharmacy Communication SCH (13:45)
[2021-06-30] MEDS: LORazepam 0.5 MG TAB PO SCH (14:06)
[2021-06-30] MEDS: ACETAMINOPHEN 500 MG TAB PO SCH ×2 (14:07→21:37)
[2021-06-30] MEDS: ceFAZolin 2000MG 2,000 MG/15 ML SYR IV SCH ×2 (17:11→23:45)
[2021-06-30] MEDS ORDERED: SENNA 8.6 MG TAB PO SCH (21:00)
[2021-06-30] MEDS ORDERED: LORazepam 0.5 MG TAB PO SCH ×2 (21:00)
[2021-06-30] MEDS ORDERED: LORazepam 1 MG TAB PO SCH (21:00)
[2021-06-30] MEDS ORDERED: ATORVASTATIN 20 MG TAB PO SCH (21:00)
[2021-06-30] MEDS ORDERED: SERTRALINE HCL 50 MG TABLET PO SCH (21:00)
[2021-06-30] MEDS: DOCUSATE SODIUM 100 MG CAP PO SCH (21:39)
[2021-06-30] MEDS: METOPROLOL TARTRATE 25 MG TAB PO SCH (21:41)
[2021-07-01] MEDS: KETOROLAC TROMETHAMINE 15 MG/ML VIAL IV SCH ×2 (05:47→10:41)
[2021-07-01] MEDS: ACETAMINOPHEN 500 MG TAB PO SCH (05:48)
--- NOTE | 2021-07-01 06:34 | Orthopedic Progress Note ---
Date of Service July 01, 2021 Assessment & Plan (1) Status post reverse arthroplasty of right shoulder: Overall she is doing very well. She is having any pain in the right shoulder. The nerve block is still in effect. She will be seen by physical therapy today for ambulation and range of motion exercises. She can be discharged home later today. She will follow-up with orthopedics in 2 weeks. Leo Herrera was seen and examined at bedside this morning. Overall she is doing very well. She is not having much pain in the right shoulder. The nerve block is still in effect. She has no other complaints. Review of Systems All systems reviewed & are unremarkable except as noted in HPI & below. Physical Exam On physical examination of the right shoulder, the dressing is clean and dry. She does not have any motion or feeling in her hand yet. She is wearing her sling as instructed. Results & Data Results & Data Laboratory Results . Diagnostic Findings Postoperative x-rays of the right shoulder show the prosthesis to be in anatomic alignment without any evidence of fracture, desiccation, or loosening. PG Care Time/CCT Total # of Minutes Spent Total Time Spent with Patient: Total time spent is greater than 50% in coordination of care (as documented) at patient's floor/unit and/or counseling patient: Coding Level of Care Code 18721 Post Operative Follow-Up Diagnoses Status post reverse arthroplasty of right shoulder Z96.611
--- NOTE | 2021-07-01 06:35 | Discharge Summary ---
Date of Service July 01, 2021 Principal Diagnosis Same as "Discharge Diagnosis" noted below under Discharge Instructions. Discharge Exam On physical examination of the right shoulder, the dressing is clean and dry. She does not have any motion or feeling in her hand yet. She is wearing her sling as instructed. Discharge Data Procedures Performed Operation Date: 06/30/21 08:50 Actual Procedures p Right Reverse Total Shoulder Arthroplasty(Right) - Jesse Cruz DO Ordered Studies 06/30/21 05:00 US - OR guided needle placemen Routine Hospital Course (1) Status post reverse arthroplasty of right shoulder: On June 30, 2021 Sharon arrived at [facility] and underwent a left reverse shoulder replacement without complication. She had a general anesthetic and a left interscalene nerve block. Postoperatively she was placed in a sling and transferred to the general orthopedic floors. Her hospital course was uneventful. On postop day #1 her vital signs were stable and her pain was well controlled. She was able to participate well with physical therapy doing ambulation and range of motion exercises. She was then discharged home. She will follow-up with orthopedics in 2 weeks. PG Care Time/CCT Total # of Minutes Spent Total Time Spent with Patient: Total time spent is greater than 50% in coordination of care (as documented) at patient's floor/unit and/or counseling patient: Discharge Plan Discharge Items Patient Disposition: Home - Home Health Services Reason For Visit: DJD Right Shoulder Discharge Diagnosis: Right reverse shoulder replacement Activity: As commented below Non-emergency contact: Surgeon Call non-emergency contact if: your wound has increased redness and your wound has increased drainage Follow-up/Referrals: Lucita Payan DO [Primary Care Provider] - Diet: Regular Addtl Attending Provider Instructions: Activity and Therapy Recommendations: * If you are using [facility] then therapy will be provided at your home until they feel you have accomplished all of your goals. * If you are using [facility] then Physical Therapy will be provided until they feel you are ready to start Outpatient Physical Therapy. * If you are not using home therapy then Outpatient Physical Therapy should start about 3-5 days from your day of surgery. Therapy will last about 8-12 weeks * Wear your sling for 3 weeks, unless otherwise instructed. You may remove your sling to shower and to dress, but otherwise, you should be in your sling at all times, including while sleeping * The shoulder replacement is very stable and you can use your hand while in the sling * You were shown a series of exercises in the hospital. Do these exercises daily including the exercises you were shown in physical therapy. Medications: * Narcotic You will likely be sent home from the hospital with a prescription for the narcotic pain medication that worked best throughout your stay. * Other medications may be prescribed for specific circumstances. If you have any questions, please call the office at . * Resume previous home medications unless otherwise instructed Dressing Care: Leave the Silverlon dressing in place for 7 days. After 7 days you may remove the dressing. If the incision is not draining then you may leave the elizabeth open to air. If there is a little bit of drainage or if the elizabeth are getting stuck on your clothing then cover the incision with a dry dressing. The elizabeth will be removed at your 2 week follow-up appointment. Showering: You may shower with the Silverlon dressing in place. Do not let the shower spray hit the dressing directly. Pat the Silverlon dressing dry. If the dressing becomes wet underneath, then simply remove the dressing. Keep the incision dry until you are 7 days out from the day of surgery. After 7 days you may remove the Silverlon dressing and shower with the elizabeth exposed. Let soapy water run over the elizabeth and pat them dry. Do not scrub or soak the incision. Things To Watch For: * Drainage from the incision site that occurs more than one week after your surgery. * Increased redness at the incision site. * Fever above 102 degrees Fahrenheit. * Unusual chest pain or shortness of breath. * Call [facility] at with any of the above proble ms Follow-Up Visit: Follow-up with Dr. Cruz's PA (Jesse Prasad) 2-3 weeks after your day of surgery. He will remove your elizabeth and answer any questions. If you have any additional questions or concerns, Dr Cruz is usually in the office at the same time and will be available An appointment was probably scheduled when you signed-up for surgery in the office. If you have any questions call More detailed instructions as well as Frequently Asked Questions were provided in a folder by our office when you signed-up for surgery. Please review these instructions when you get home. If you have any further questions or concerns, please feel free to call the office at [phone] Pending Studies at Discharge: No Stand-Alone Forms: My [facility], Smoking Cessation Medications and DC Order Prescriptions: Continued lorazepam 1 mg tablet 0.5 mg PO BID RF: 0 metoprolol tartrate 25 mg tablet 25 mg PO BID RF: 0 omeprazole 20 mg capsule,delayed release(DR/EC) 20 mg PO QAM RF: 0 sertraline [Zoloft] 25 mg tablet 25 mg PO HS RF: 0 acetaminophen [Tylenol] 325 mg capsule 325 mg PO QID PRN (Reason: Pain) RF: 0 tramadol 50 mg tablet 50 mg PO Q8H PRN (Reason: pain) Qty: 30 RF: 0 atorvastatin 20 mg Tablet 20 mg PO HS RF: 0 lorazepam 1 mg Tablet 1 mg PO HS RF: 0 Discharge Orders: Discharge Order (Routine); Ordered 07/01/21 Ordered By: Jesse Cruz Admission Data Admit Date/Time: 06/30/21 10:11 Attending Provider: Jesse Cruz Admit Provider: Jesse Cruz Primary Care Provider: Lucita Payan
[2021-07-01] MEDS ORDERED: dexAMETHasone 4 MG TAB PO SCH (08:00)
[2021-07-01] MEDS: METOPROLOL TARTRATE 25 MG TAB PO SCH (08:55)
[2021-07-01] MEDS: LORazepam 0.5 MG TAB PO SCH (08:55)
[2021-07-01] MEDS: DOCUSATE SODIUM 100 MG CAP PO SCH (08:56)
[2021-07-01] MEDS ORDERED: MULTIVITAMIN TAB PO SCH (09:00)
[2021-07-01] MEDS ORDERED: PANTOprazole 40 MG TAB PO SCH (09:00)
== END 2021-07-01 11:10 | disposition home health service (06) ==
LOC: 3E 06:15 → ASU 06:15

== ENCOUNTER 2024-05-06 12:13 | Observation (INO) ==
--- OUTSIDE RECORDS SUMMARY | 2024-05-06 12:23 | External Medical Summary | Summary of Care ---
Author Name Unknown Organization [facility] Address [address] [place] [address] Phone [phone] Care Team Providers Care Rayon Winder Name Role Phone Lucita Payan DO Primary Care Provider Reason for Visit * Reason Onset Date Comments Test Results Lab 05/03/2024 Encounter Details Date Type Department Care Team (Late st Contact Info) Description [facility] [place] [address] [place] [phone] Apolinar Eid PA-C [address] [place] [facility] [place] [address] Test Results Lab Allergies Active Allergy Reactions Criticality Noted Date Comments Acyclovir And Related Hives,Other (Pleas e comment) Low 07/10/2003 SOB Amoxicillin-Pot Clavulanate 07/22/2022 diarrhea Buspirone Hcl Edema airway High 05/25/1997 Codeine Nausea/vomiting,Othe r (Please comment) Low 05/26/2012 Patient states she passed out. Rosuvastatin 08/26/2021 Restless leg Salicylates Nausea/vomiting Low 05/25/1997 Nose Bleeds. Sulfa Antibiotics Nausea/vomiting Low 06/23/2002 documented as of this encounter (statuses as of 05/04/2024) Medications fluticasone (FLONASE) 50 MCG/ACT nasal sprayIndications:Tin nitus of both ears,Dysfunction of Eustachian tube, bilateral,Chronic rhinitis Administer 2 Sprays into each nostril daily. 1 Inhaler 5 01/08/20 16 Active Acetaminophen 325 MG Oral Capsule Take by mouth 325 mg 4 times a day as needed . 04/16/19 22 Active Meclizine HCl 12.5 MG Oral Tablet (Antivert)Indication s:Vertigo Take 1 Tablet by mouth 3 times a day as needed for Dizziness. 30 Tablet 1 07/29/19 24 Active Atorvastatin Calcium 40 MG Oral Tablet (Lipitor)Indications :Dyslipidemia, goal LDL below 100 TAKE 1 TABLET BY MOUTH EVERY DAY IN THE MORNING 90 Tablet 3 08/13/19 24 Active Metoprolol Succinate ER 25 MG Oral Tablet Extended Release 24 Hour (toPROL XL)Indications:PSVT (paroxysmal supraventricular tachycardia) (HCC),Palpitations,L VH (left ventricular hypertrophy),HTN, goal below 140/90,Nonrheumatic mitral valve regurgitation Take 1 Tablet by mouth in the morning. 90 Tablet 3 09/01/19 24 Active Sertraline HCl 50 MG Oral Tablet (Zoloft) TAKE 1 TABLET BY MOUTH EVERY DAY IN THE MORNING 90 Tablet 3 12/21/19 24 Active Diclofenac Sodium 1 % External Gel (Voltaren) Apply topically to affected area 3 times a day as needed for Pain. Apply to affected area 100 g 2 12/27/19 24 Active Omeprazole 20 MG Oral Capsule Delayed Release (PriLOSEC) TAKE 1 CAPSULE BY MOUTH IN THE MORNING AND 1 CAPSULE BEFORE BEDTIME. 30 MINUTES BEFORE A MEAL. 180 Capsule 3 02/07/20 24 Active LORazepam 1 MG Oral Tablet (Ativan)Indications: Depression with anxiety TAKE 1 TABLET BY MOUTH TWICE A DAY NEEDED FOR ANXIETY 60 Tablet 04/12/19 25 Active Oseltamivir Phosphate 75 MG Oral Capsule (Tamiflu)Indications :Flu-like symptoms Take 1 Capsule by mouth in the morning and 1 Capsule before bedtime. Do all this for 5 days. For 5 days.. 10 Capsule 05/04/19 25 025 Active Albuterol Sulfate HFA 108 (90 Base) MCG/ACT Inhalation Aerosol SolutionIndications: Flu-like symptoms,Hypoxia Inhale 2 Puffs by mouth every 4 hours as needed for Shortness of Breath or Dyspnea. 6.7 g 11 05/04/19 25 Active Ondansetron HCl 4 MG Oral TabletIndications:Fl u-like symptoms,Hypoxia,Acu te cough Take 1 Tablet by mouth every 8 hours as needed for Nausea. 15 Tablet 05/04/19 25 Active documented as of this encounter (statuses as of 05/04/2024) Active Problems Problem Noted Date Diagnosed Date Ankylosing spondylitis of cervical region 2023 MALIK (generalized anxiety disorder) 07/29/2023 Laryngopharyngeal reflux disease 01/27/2023 Hypertensive heart disease without heart failure 01/27/2023 Type 2 diabetes mellitus with diabetic polyneuro evelyn 03/29/2019 Primary osteoarthritis involving multiple joints 05/26/2017 Neuropathy, idiopathic 07/07/2016 LVH (left ventricular hypertrophy) 06/22/2016 Overview (07/13/2016): Borderline LVH HTN, goal below 150/90 01/08/2016 Palpitations 06/21/2015 Primary osteoarthritis of right knee 06/21/2015 Dyslipidemia, goal LDL below 100 03/20/2015 Depression with anxiety 03/20/2015 Personal history of malignant neoplasm of breast 03/20/2015 Localized primary osteoarthr itis of carpometacarpal joint of left thumb 03/20/2015 Carpal tunnel syndrome of left wrist 03/20/2015 Congenital nystagmus 03/20/2015 documented as of this encounter (statuses as of 05/04/2024) Resolved Problems Problem Noted Date Diagnosed Date Resolved Date Prediabetes 04/06/2017 04/05/2019 Overview: Per Prediabetes protocol #1 Calculus of gallbladder with acute cholecystitis without obstruction 10/09/20162017 S/P laparoscopic cholecystectomy 10/09/2016 12/20/2017 Generalized osteoarthritis of multiple sites 7 05/26/2017 Need for pneumococcal vaccination 03/20/2015 08/12/2016 Screen for colon cancer 03/20/201507/24 Chest pain 05/26/2012 08/12/2016 Dyslipidemia, goal to be determined 01/29/2009 03/20/2015 Overview (01/29/2009): Per Lipid Taxonomy. ADVANCE DIRECTIVE INFORMATION 11/11/2006 03/20/2015 Overview (11/05/2005): No, Advance Directive brochure given to patient. MAL ЕКАТЕРИНА BREAST UP-INNER 11/01/200207/24 Encounter for long-term (cur rent) use of medications 11/01/2002 03/20/2015 Overview (12/15/2016): ICD-10 update of inactive term DENTURES 04/24/2002 08/12/2016 Reflux esophagitis 04/24/2002 6 OBESITY, UNSPECIFIED 04/24/2002 016 Mixed dyslipidemia 07/07/2000 9 Overview (01/29/2009): Per Lipid Taxonomy. Palpitations 05/25/1997 03/20/2015 GENERALIZED ANXIETY DIS 05/25/199702/23 LOC PRIM [id number] 05/25/199702/23 Dyspnea and respiratory abnormality 05/25/1997 03/20/2015 Overview (12/15/2016): ICD-10 update of inactive term Other chest pain 05/25/1997 03/20/2015 Mitral valve disorder 02/22/19852015 Arthritis of hip 03/20/2015 HTN, goal below 140/90 01/07 documented as of this encounter (statuses as of 05/04/2024) Immunizations Name Administration Dates Next Due COVID-19 mRNA, LNP-s, No Pre serve, 2-Dose Series (TradingView) 01/23/2021,05/01/2020,04/10/2020 Covid-19, Mrna, Lnp-s, Pf, B ivalent, 30 Mcg, IM, 12 yrs and above (Pfizer) 12/30/2021 Pneumococcal Conjugate Vacc, 13 Valent (Prevnar) 03/20/2015 Pneumococcal Polysaccharide PPV23 (Pneumovax) 03/02/2017 Seasonal Influenza, High Dos e, Trivalent, PF, IM (Fluzone HD) 11/24/2023 Seasonal Influenza, PF, 6 M & above, IM , (FluLaval or Fluzone) 11/13/2019,12/24/2017,03/02/2017 Seasonal Influenza, Quadriva lent Hd (Fluzone Hd) 11/19/2022,12/25/2021,11/14/2020 Seasonal Influenza, Quadriva lent, No Preserve, IM 01/13/2016,03/20/2015 Seasonal Influenza, Trivalen t, Adjuvanted, 65+ YRS, PF, (Fluad) 12/21/2018 TD - Tetanus/Diptheria (ADULT) 04/13/2001 TDAP (age 10 and older)(Boostrix) 08/18/2017 documented as of this encounter Social History Tobacco Use Types Packs/Day Years Used Date Smoking Tobacco: Never Passive Smoke Exposure: Current Smokeless Tobacco: Never Alcohol Use Standard Drinks/Week Comments No 0 (1 standard drink = 0.6 oz pur e alcohol) none PHQ-2 Answer Date Recorded PHQ Adult Total Score 0 11/24/2023 Hunger Vital Sign Answer Date Recorded Within the past 12 months, y ou worried that your food would run out before you got the money to buy more. Never true 11/24/19 24 Within the past 12 months, t he food you bought just didn't last and you didn't have money to get more. Never true 11/24/2023 Childcare Answer Date Recorded Do you feel overwhelmed with taking care of a child, family member or friend? No 11/24/2023 Does your family need help f inding childcare? (Household - for ages 0-17 years) Not on file 11/24/2023 Clothing Answer Date Recorded Have you been unable to get clothing when it was really needed? No 11/24/2023 Is your family able to get c lothes or diapers when needed? (Household - for ages 0-17 years) Not on file 11/24/2023 Personal Safety Answer Date Recorded Do you feel unsafe or have concerns for your saf ety? No 11/24/2023 Do you have concerns for you r family's safety? (Household - for ages 0-17 years) Not on file 11/24/2023 Utilities Answer Date Recorded Do you have trouble paying y our heating, water, or electric bill? No 11/24/2023 Is your family able to pay t he heat, water, or electric bill? (Household - for ages 0-17 years) Not on file 11/24/2023 Does your family have access to good internet? (Household - for ages 0-17 years) Not on file 11/24/2023 Employment Status Answer Date Recorded Are you unemployed or without regular income? No 11/24/2023 Does the household have a re gular source of income? (Household - for ages 0-17 years) Not on file 11/24/2023 Social Connections Answer Date Recorded How often do you feel lonely or isolated from th ose around you? Never 11/24/2023 Financial Resource Strain Answer Date R ecorded Do you have any trouble payi ng for your medications, or do you think you might in the future? No 11/24/2023 Does your family have troubl e paying for medicine? (Household - for ages 0-17 years) Not on file 11/24/2023 Transportation Needs Answer Date Record ed Do you have trouble getting a ride to medical visits or work? (Adult - for ages 18 years and over) Not on file 11/24/2023 Does your family have a hard time getting a ride to doctors visits? (Household - for ages 0-17 years) Not on file 11/24/2023 Has lack of transportation k ept you from medical appointments, meetings, work, or from getting things needed for daily living? Check all that apply. No 11/24/2023 Do you (or your family) have trouble finding or paying for a ride (transportation)? (Household - for ages 0-17 years) Not on file 11/24/2023 Housing Stability Answer Date Recorded Do you currently live in a s helter or have no steady place to sleep at night? No 11/24/2023 Do you think you are at risk of becoming homeless? (Adult - for ages 18 years and over) Not on file 11/24/2023 Does your family worry about paying for your home or becoming homeless? (Household - for ages 0-17 years) Not on file 1 Are you homeless or worried that you might be in the future? No 11/24/2023 Are you (or your family) alonso eless or worried that you might be in the future? (Household - for ages 0-17 years) Not on file Food Insecurity Answer Date Recorded Do you need food for this week? No 11/24/2023 Are you able to get enough f ood for your family? (Household - for ages 0-17 years) Not on file 11/24/2023 Does your family need food t his week? (Household - for ages 0-17 years) Not on file 11/24/2023 Do you always have enough fo od for your family? (Household - for ages 0-17 years) Not on file 11/24/2023 Food Insecurity Answer Date Recorded Within the past 12 months, y ou worried that your food would run out before you got the money to buy more. Never true 11/24/19 24 Within the past 12 months, t he food you bought just didn't last and you didn't have money to get more. Never true 11/24/2023 Do you need food for this week? No 11/24/2023 Comments No Sex and Gender Information Value Date Recorded Sex Assigned at Female 06/20/2018 12:01 PM EDT Legal Sex Female 4:51 AM EST Gender Identity Female 06/20/2018 12:01 PM EDT Sexual Orientation Straight 06/20/2018 12 :01 PM EDT Occupation Industry Job Start Date Job End Date [employer]OMEM[employer] Not on file Not on file Not on file documented as of this encounter Miscellaneous Notes * Telephone Encounter - Pricila Grady LPN - 05/03/2024 6:58 PM EDT Called and spoke with pt. Relayed information from provider to pt. Pt voiced understanding and had not further questions. * Telephone Encounter - Apolinar Eid PA-C - 05/03/2024 6:15 PM EDT Please let patient know: Influenza A + Continue Tamiflu MADAN for highest efficacy Continue supportive measures, including getting plenty of rest, push fluids, PRN Tylenol/ibuprofen per package directions (do not exceed package instructions for dosing) for pain and fever relief, humidifier/cool mist vaporizer, hot showers for the steam. Limit/avoid public contact until afebrile x 24 hours without mediciations Follow-up with PCP if not improving within 3-5 days, sooner if worsening despite above measures documented in this encounter Plan of Treatment Upcoming Encounters Date Type Department Care Team (Late st Contact Info) Description 05/17/2024 11:30 AM EDT Office Visit Family Practice, [facility] [address] [phone] Lucita Payan, DO [address] [place] [address] 07/18/2024 10:30 AM EDT Office Visit Cardiology, [facility] [address] [place] [id number] Esvin Payan, DO [address] [place] [address] 08/08/2024 11:30 AM EDT Imaging Radiology [facility] [address] [place] [phone] 11/29/2024 11:00 AM EDT Nurse Only Ancillary Department, Andre Hernandez [address] [phone] Andre, Nurse Annual Wellness [address] [address] Scheduled Procedures Name Priority Associated Diagnoses Date/Ti me ESOPHAGOGASTRODUODENOSCOPY ( EGD), FLEXIBLE, TRANSORAL, DIAGNOSTIC Recall Esophageal pain COLONOSCOPY FLEXIBLE PROXIMAL DIAGNOSTIC Recall Colon cancer screening Health Maintenance Due Date Last Done Comments Hepatitis C Screening 1968 Zoster Vaccines (1 of 2) 1998 DXA Scan 04/30/2020 05/01/2015 Diabetic Eye Exam 07/24/2023 07/23/2022, , 01/12/2019 COVID-19 Vaccine ( season) 2023 12/30/2021, 01/23/2021, 12/21/2020, Additional history exists Diabetic Foot Exam 11/20/2023 11/19/2022, 0 09/03/2021, 08/30/2020, Additional history exists HbA1c 01/28/2024 07/29/2023, 12/0 07/2022, 07/22/2022, Additional history exists Albumin/Creatinine Ratio 07/28/2024 024, 02/27/2022, 12/25/2020, Additional history exists GFR 07/28/2024 07/29/2023, 12/0 07/2022, 07/22/2022, Additional history exists Adult Wellness Visit 11/23/2024 11/24/2023, 11/19/2022, 11/18/2021, Additional history exists Depression Monitoring 11/23/2024 11/24/2023 DTap/Tdap Vaccines (2 - Td or Tdap) 08/19/2027 08/18/2017, 04/13/2001 Fecal Occult Blood Test Discontinued 12/09/2000 Colonoscopy Discontinued 09/10/2015, 09/10/2015 Colorectal Cancer Screening Discontinued Pneumococcal Vaccine: 50+ Years Completed 03/02/2017, 03/20/2015 Influenza Vaccine (FLU shot) Completed 11/24/2023, 11/24/2023, 11/19/2022, Additional history exists Cologuard Discontinued HPV (Gardasil) Vaccine Aged Out No lo nger eligible based on patient's age to complete this topic Hepatitis B Vaccine Aged Out No longe r eligible based on patient's age to complete this topic MENINGOCOCCAL (MENACTRA/MENVEO) Aged Out No longer eligible based on patient's age to complete this topic Meningitis B Vaccine (Bexsero/Trumemba) Aged Out No longer eligible based on patient's age to complete this topic Sigmoidoscopy Discontinued documented as of this encounter Medical Devices Not on filedocumented as of this encounter Additional Health Concerns Infection Onset Date Last Indicated Resolved Time Influenza (seasonal) 05/03/2024 05/03/2024 documented as of this encounter Care Teams Rayon Winder Relationship Specialty Start Date End Date Lucita Payan DO [address] [phone] PCP - General Family Medicine 03/08/24 documented as of this encounter
--- OUTSIDE RECORDS SUMMARY | 2024-05-06 12:23 | External Medical Summary ---
Author Name Unknown Address Unknown Organization [id number]:[facility] [place] [address] [facility] [id number] Laboratory Report Ordering Provider Test Date Status ANETTE CHILDERS 05/03/2024 10:36:54 Final Observation Date Value Abnormality Reference (Units ) Status SARS Coronavirus 2 05/03/2024 10:36:54 Negative N egative Final No SARS-CoV2 Coronavirus RNA detected by PCR (amplified probe).
This express test was developed and its performance characteristics determined by [facility]. It has not been cleared or approved by the U.S. Food and Drug Administration (FDA). FDA does not require this test to go thru premarket FDA review. This test is used for clinical purposes. It should not be regarded as investigational or for research. This laboratory is certified under the Clinical Laboratory Improvement Amendments (CLIA) as qualified to perform high complexity clinical laboratory testing.

This test is a nucleic acid amplification test (NAAT), a reverse transcriptase polymerase chain reaction (RT-PCR) test, or a Centers for Disease Control-acceptable equivalent. The test is performed in a high complexity Clinical Laboratory Improvement Amendments-(CLIA) certified laboratory. The test is acceptable for SARS-CoV-2 diagnosis, surveillance, and travel within the [place] and to most countries. Please check with local testing authorities about requirements before travel.

The validation of bronchial specimens, tracheal aspirates, and sputum for this assay was developed and performance characteristics determined by [facility]. The validation of alternate specimen types has not been cleared or approved by the U.S. Food and Drug Administration (FDA). It has been determined that such clearance is not necessary. Influenza virus A RNA [Prese nce] in Specimen by [facility] with probe detection 05/03/2024 10:36:54 Positive Abnormal Negative Final Influenza A RNA detected by PCR (amplified probe). Test results reported to [facility]. Influenza virus B RNA [Prese nce] in Specimen by [facility]EEP with probe detection 05/03/2024 10:36:54 Negative Negative Final No Influenza B RNA detected by PCR (amplified probe) Respiratory syncytial virus RNA [Identifier] in Specimen by PRADEEP with probe detection 05/03/2024 10:36:54 Negative Negative Final No Respiratory Syncytial Vir us RNA detected by PCR (amplified probe) Performing Location [facility] [place] - [facility] [place] [address] [facility] [address]
--- OUTSIDE RECORDS SUMMARY | 2024-05-06 12:23 | External Medical Summary | Summary of Care ---
Author Name Unknown Organization [facility] Address [address] [address] Phone [phone] Care Team Providers Care Order Tracer Name Role Phone Irena Mcnair DO Primary Care Provider Reason for Visit * Reason Comments eRx-Medication Refill Encounter Details Date Type Department Care Team (Late st Contact Info) Description 04/10/2024 Refill [facility] [address] [facility] [place] [address] Irena Mcnair DO [address] [facility] [address] Depression with anxiety Allergies Active Allergy Reactions Criticality Noted Date Comments Acyclovir And Related Hives,Other (Pleas e comment) Low 07/10/2003 SOB Amoxicillin-Pot Clavulanate 07/22/2022 diarrhea Buspirone Hcl Edema airway High 05/25/1997 Codeine Nausea/vomiting,Othe r (Please comment) Low 05/26/2012 Patient states she passed out. Rosuvastatin 08/26/2021 Restless leg Salicylates Nausea/vomiting Low 05/25/1997 Nose Bleeds. Sulfa Antibiotics Nausea/vomiting Low 06/23/2002 documented as of this encounter (statuses as of 04/12/2024) Medications fluticasone (FLONASE) 50 MCG/ACT nasal sprayIndications:Ti nnitus of both ears,Dysfunction of Eustachian tube, bilateral,Chronic rhinitis Administer 2 Sprays into each nostril daily. 1 Inhaler 5 016 Active Acetaminophen 325 MG Oral Capsule Take by mouth 325 mg 4 times a day as needed . 022 Active Meclizine HCl 12.5 MG Oral Tablet (Antivert)Indicatio ns:Vertigo Take 1 Tablet by mouth 3 times a day as needed for Dizziness. 30 Tablet 1 024 Active Atorvastatin Calcium 40 MG Oral Tablet (Lipitor)Indication s:Dyslipidemia, goal LDL below 100 TAKE 1 TABLET BY MOUTH EVERY DAY IN THE MORNING 90 Tablet 3 024 Active Metoprolol Succinate ER 25 MG Oral Tablet Extended Release 24 Hour (toPROL XL)Indications:PSVT (paroxysmal supraventricular tachycardia) (HCC),Palpitations, LVH (left ventricular hypertrophy),HTN, goal below 140/90,Nonrheumatic mitral valve regurgitation Take 1 Tablet by mouth in the morning. 90 Tablet 3 024 Active Sertraline HCl 50 MG Oral Tablet (Zoloft) TAKE 1 TABLET BY MOUTH EVERY DAY IN THE MORNING 90 Tablet 3 024 Active Diclofenac Sodium 1 % External Gel (Voltaren) Apply topically to affected area 3 times a day as needed for Pain. Apply to affected area 100 g 2 024 Active Omeprazole 20 MG Oral Capsule Delayed Release (PriLOSEC) TAKE 1 CAPSULE BY MOUTH IN THE MORNING AND 1 CAPSULE BEFORE BEDTIME. 30 MINUTES BEFORE A MEAL. 180 Capsule 3 024 Active LORazepam 1 MG Oral Tablet (Ativan)Indications :Depression with anxiety TAKE 1 TABLET BY MOUTH TWICE A DAY NEEDED FOR ANXIETY 60 Tablet 025 Active LORazepam 1 MG Oral Tablet (Ativan)Indications :Depression with anxiety TAKE 1 TABLET BY MOUTH TWICE A DAY NEEDED FOR ANXIETY 60 Tablet 025 2024 Discontinued documented as of this encounter (statuses as of 04/12/2024) Active Problems Problem Noted Date Diagnosed Date [...] as of this encounter (statuses as of 04/12/2024) Resolved Problems Problem Noted Date Diagnosed Date [...] 03/20/2015 GENERALIZED ANXIETY DIS 05/25/199702/23 LOC PRIM [id number] 05/25/199702/23 Dyspnea and respiratory abnormality 05/25/1997 03/20/2015 Overview (12/15/2016): ICD-10 update of inactive term Other chest pain 05/25/1997 03/20/2015 Mitral valve disorder 02/22/19852015 Arthritis of hip 03/20/2015 HTN, goal below 140/90 01/07 documented as of this encounter (statuses as of 04/12/2024) Immunizations Name Administration Dates Next Due COVID-19 mRNA, LNP-s, No Pre serve, 2-Dose Series ([employer]) 01/23/2021,05/01/2020,04/10/2020 Covid-19, Mrna, Lnp-s, Pf, B ivalent, [...] encounter Miscellaneous Notes * Telephone Encounter - Juan Turcios cooker loader - 04/12/2024 9:52 AM EST Advised pt that RX was sent to pharmacy. Thank You, Juan Turcios [facility] In[employer] Toe Snipping Machine Operator II [facility] 04/12/2024, 9:52 AM * Telephone Encounter - Irena Mcnair DO - 04/12/2024 9:29 AM ESTSigned Prescriptions: Disp Refills LORazepam 1 MG Oral Tablet (Ativan) 60 Tab*0 Sig: TAKE 1 TABLET BY MOUTH TWICE A DAY NEEDED FOR ANXIETY Authorizing Provider: IRENA MCNAIR * Telephone Encounter - Virginia Luciano [facility] - 04/11/2024 12:43 PM ESTPending Prescriptions: Disp Refills LORazepam 1 MG Oral Tablet [Pharmacy Med N*60 Tab*0 Sig: TAKE 1 TABLET BY MOUTH TWICE A DAY NEEDED FOR ANXIETY * Telephone Encounter - Sweta Johnson [facility] - 04/11/2024 10:54 AM ESTPending Prescriptions: Disp Refills LORazepam 1 MG Oral Tablet [Pharmacy Med N*60 Tab*0 Sig: TAKE 1 TABLET BY MOUTH TWICE A DAY NEEDED FOR ANXIETY * Telephone Encounter - Sweta Johnson [facility] - 04/11/2024 10:53 AM EST I have reviewed the patients controlled substance dispensing history in the Prescription Drug Monitoring Program in compliance with the [facility] regulations before prescribing a controlled substance. PDMP checked on 04/11/2024. Pending Prescriptions: Disp Refills LORazepam 1 MG Oral Tablet (Ativan) [Phar*60 Tab*0 Sig: TAKE 1 TABLET BY MOUTH TWICE A DAY NEEDED FOR ANXIETY Last Visit: Visit date not found (in office), Visit date not found (telemedicine) Next Visit: 05/17/2024 Date medication was last filled: 03/06 Date medication is due for refill: 04/04 Pharmacy: [id number] [address] [facility] Is this request for a controlled substance? Yes and Urine Drug Screen Not completed Toxicology results: No results found for this or any previous visit. Please approve if appropriate. Thanks, Sweta Johnsno, PharmD Clinical Pharmacist [facility] ([facility] [phone] 04/11/2024 10:53 AM * Telephone Encounter - Karon Vincent PHARM Tech - 04/11/2024 10:31 AM EST Pt requesting high priority. She will be out of medication in next few days. Pt calling to check on status of LORazepam 1 MG Oral Tablet (Ativan) . Caller can be reached at [phone]. Thank you, Karon Vincent Client Development Director I [facility] ([facility]) 04/11/2024,10:32 AM documented in this encounter Plan of Treatment Upcoming Encounters Date Type Department Care Team (Late st Contact Info) Description 05/17/2024 11:30 AM EDT Office Visit Family Practice, [facility] [address] [phone] Irena Mcnair DO [address] [address] 07/18/2024 10:30 AM EDT Office Visit Cardiology, [facility] [address] [place] [phone] Esvin Mcnair DO [address] [address] 08/08/2024 11:30 AM EDT Imaging Radiology [facility] [address] [place] [phone] 11/29/2024 11:00 AM EDT Nurse Only Ancillary Department, Andre Hernandez [address] [phone] Andre, Nurse [facility] [address] [address] Scheduled Procedures Name Priority Associated Diagnoses Date/Ti [...] Not on filedocumented as of this encounter Visit Diagnoses Diagnosis Depression with anxiety Dysthymic disorder documented in this encounter Care Teams Order Tracer Relationship Specialty Start Date End Date Irena Mcnair DO [address] [address] PCP - General Family Medicine 03/08/24 documented as of this encounter
--- OUTSIDE RECORDS SUMMARY | 2024-05-06 12:23 | External Medical Summary | Summary of Care ---
Author Name Unknown Organization [facility] Address [address] [facility] [place] [address] Phone [phone] Care Team Providers Care Nurse Rn Bsn Name Role Phone EwdinLucita del cid Maya CHAMBERLAIN Primary Care Provider Reason for Visit * Reason Onset Date Comments Vomiting Nausea Cough Ear Pain Respiratory Infection 05/03/2024 Encounter Details Date Type Department Care Team (Latest Contact Info) Description 05/03/2024 9:40 AM EDT Convenient Care Visit [facility] [address] [place] [phone] Apolinar Cheema PA-C [address] [facility] [place], [place] [id number] Flu-like symptoms*; Hypoxia; Acute cough Allergies Active Allergy Reactions Criticality Noted Date Comments Acyclovir And Related Hives,Other (Pleas e comment) Low 07/10/2003 SOB Amoxicillin-Pot Clavulanate 07/22/2022 diarrhea Buspirone Hcl Edema airway High 05/25/1997 Codeine Nausea/vomiting,Othe r (Please comment) Low 05/26/2012 Patient states she passed out. Rosuvastatin 08/26/2021 Restless leg Salicylates Nausea/vomiting Low 05/25/1997 Nose Bleeds. Sulfa Antibiotics Nausea/vomiting Low 06/23/2002 documented as of this encounter (statuses as of 05/03/2024) Medications fluticasone (FLONASE) 50 MCG/ACT nasal sprayIndications:Tin [...] for Nausea. 15 Tablet 05/04/19 25 Active Hospital, Clinic, or Other Facility Administered Medication Ordered Dose Route Frequency Start Date End Date Status ondansetron ODT (Zofran) tab 4 mgIndications:Flu-lik e symptoms 4 mg OR ONCE 05/03/2024 05/03/2024 Discontinued ondansetron (Zofran) tab 4 mgIndications:Flu-lik e symptoms,Hypoxia 4 mg OR ONCE 05/03/2024 05/03/2024 Ended documented as of this encounter (statuses as of 05/03/2024) Active Problems Problem Noted Date Diagnosed Date [...] as of this encounter (statuses as of 05/03/2024) Resolved Problems Problem Noted Date Diagnosed Date [...] 03/20/2015 GENERALIZED ANXIETY DIS 05/25/199702/23 LOC PRIM [id number] 05/25/199702/23 Dyspnea and respiratory abnormality 05/25/1997 03/20/2015 Overview (12/15/2016): ICD-10 update of inactive term Other chest pain 05/25/1997 03/20/2015 Mitral valve disorder 02/22/19852015 Arthritis of hip 03/20/2015 HTN, goal below 140/90 01/07 documented as of this encounter (statuses as of 05/03/2024) Immunizations Name Administration Dates Next Due COVID-19 mRNA, LNP-s, No Pre serve, 2-Dose Series ([employer]) 01/23/2021,05/01/2020,04/10/2020 Covid-19, Mrna, Lnp-s, Pf, B ivalent, [...] No 11/24/2023 Does the household have a [facility] source of income? (Household - for ages [...] on file documented as of this encounter Last Filed Vital Signs Vital Sign Reading Time Taken Comments Blood Pressure 153/68 05/03/2024 9:33 AM EDT Pulse 68 05/03/2024 9:33 AM EDT Temperature 38.3 C (100.9 F) 05/03/2024 9:33 AM E DT Respiratory Rate 20 05/03/2024 9:33 AM EDT Oxygen Saturation 94% 05/03/2024 9:33 AM EDT Inhaled Oxygen Concentration - - Weight 84.6 kg (186 lb 9.6 oz) 05/03/2024 9:33 A M EDT Height 160 cm (5' 3") 05/03/2024 9:33 AM EDT Body Mass Index 33.05 05/03/2024 9:33 AM EDT documented in this encounter Patient Instructions * Patient Instructions* Apolinar Cheema PA-C - 05/03/2024 10:33 AM EDT Albuterol as needed Start Tamiflu. If flu negative, stop this. If positive for flu, continue. Start a daily nasal spray such as Flonase, Nasacort, OR Nasonex. They work best if used consistently. In addition to one of these medicated nasal sprays use saline nasal spray to avoid dryness and thinout mucous Over the Counter (OTC) antihistamine (claritin, zyrtec, xyzal or porter) can also be helpful for sinus symptoms. OTC decongestants: Sudafed, Mucinex-D (may have to get from behind pharmacy counter; you have to show your ID) can be used for nasal/sinus congestion for just a few days. If you have high blood pressure, you can use Coricidin. OTC cough suppressants as needed, including delsym, robitussin, cough drops, honey. Continue supportive measures: Increase clear, non-sugary fluid intake. Get plenty of rest Use a cool mist vaporizer or humidifier daily and you can take hot showers for steam therapy. Do warm salt water gargles and/or chloraseptic throat spray, throat lozenges (Cepacol) for any sorethroat. Honey, if not concerned about diabetes or elevated blood sugar levels, can also be very helpful forsorethroat. You may also use ibuprofen or acetaminophen OTC for relief of pain or fevers. If you had a negative rapid strep test, we will inform you if your PCR ("the send out") comes back positive, and start you on antibiotics. Otherwise, you may assume the PCR was also negative. If you had a viral swab (e.g. COVID, Flu, RSV, or otherwise), we will notify you if you test positive. If you do not hear from us, assume your test was negative. Follow up with PCP or return if no improvement in a week, or sooner if worse. Go to the ED if any severe symptoms appear acutely documented in this encounter Progress Notes * Apolinar Cheema PA-C - 05/03/2024 10:05 AM EDT Nursing Notes: Carol Solorio LPN 05/03/24 0936 Signed Sharon Angelo is a 73 year old female who presents to walk-in clinic today complaining of Chief Complaint Patient presents with Vomiting Nausea Cough Ear Pain Brief history:vomiting, nausea, cough, bilateral ear pain Onset/duration: 2 days. OTC treatments tried:tylenol Patient is accompanied by no one for today's visit. Sharon Angelo is a 73 year old female who presents with upper and lower respiratory symptoms for 2 day(s) Patient was accompanied by Self. HPI Severity of Symptoms: Moderate Modifying Factors (what was done since onset of symptoms): tylenol Timing (how often does it occur): constant Quality (feels like): flu-like Other associated Signs and Symptoms: nc, rhinorrhea, PND, malaise, fatigue, body aches, f/s/ch, cough (wet, but non-productive). Reports wheezing, ribs are sore. Reports N/V without D. Denies SOB, CP, Palp. Was around several people with flu-like illnesses Ears are full, sore ROS See HPI HISTORY Past Medical History: Diagnosis Date Arthritis of hip s/p bilateral hip replacement Breast cancer (HCC) 10/18/2001 left breast-hx of DCIS, xrt 12/12/01-01/15/2002 Depressive disorder, not elsewhere classified Disc disorder of cervical region Cervical Disc Disease C6-7 Dyslipidemia, goal LDL below 100 Endometrial cancer (HCC) 2009 Excessive menstruation Generalized anxiety disorder HTN, goal below 140/90 Iron deficiency anemia secondary to menstrual loss Laryngopharyngeal reflux disease LVH (left ventricular hypertrophy) 06/2016 Borderline LVH Malignant neoplasm of other specified sites of female breast 10/18/01 left ductal carcinoma, Z0tOPOL, upper inner quad Migraine with aura Mitral valve disorder 1985 hx of mitral valve prolapse on echocardiography,Echocardiography 1997 without evidence of mitral valve prolapse. Myopia high myopia Other forms of nystagmus congenital Reflux esophagitis Uterine leiomyoma Past Surgical History: Procedure Laterality Date BREAST LESION,OTHER,EXCISION Left 11/09/2001 Excisional with SLNB BREAST LESION,OTHER,EXCISION Left 09/21/2017 benign COLONOSCOPY, DIAGNOSTIC (RECTUM) 08/24/90 Dr. Onofre, negative COLONOSCOPY, DIAGNOSTIC (RECTUM) 09/10/2015 normal, repeat 10 yrs COLONOSCOPY, DIAGNOSTIC (RECTUM) 09/10/2015 COLONOSCOPY FLEXIBLE PROXIMAL DIAGNOSTIC performed by Opal Romero DO at [facility] DENTAL SURGERY PROCEDURE NEC Dental Surgery Procedure DILATION AND CURETTAGE (D&C) D&C FLUORO UPPER GI W AIR WO KUB GERD HOLTER COMPLETE (COMM PRAC) isolated supravent ectopy, sinus tach LAPAROSCOPY; CHOLECYSTECTOMY 09/24/2016 Laparoscopic cholecystectomy performed by Dr. Angel Davila at [facility] 09/24/2016 LIGATE/CUT OVIDUCT(S) 1972 Tubal Ligation MAMMOGRAM SCREENING-BILATERAL 09/21/01 MASTECTOMY, PARTIAL Left 11/09/2001 no chemo MRI BRAIN WITH CONTRAST hyperintensity caudate nucleus, nonspecific finding NEEDLE BIOPSY/REMOVE LYMPH NODE(S) 11/09/01 left axillary sentinel lymph node biopsy. NM LYMPHATICS AND LYMPH NODE IMAGING 11/09/01 left breast ca PARTIAL MASTECTOMY 11/09/01 left breast,[facility] () PLACE NEEDLE LOC WIRE, BREAST 11/09/01 left breast ca RADIATION THERAPY 2001 RADIATION THERAPY MANAGEMENT Left 2001 RADIATION THERAPY MANAGEMENT [facility] 12/12/01-01/15/02 left breast and chest wall,(4680cGy), [facility] RADIATION THERAPY MANAGEMENT [facility] 01/16/02-01/30/02 left breast boost,(1440cGy) [facility], REMOVE CATARACT, INSERT LENS PROSTH 2006 bilateral SENTINEL LYMPH NODE BIOPSY PERFORMED Left 2001 TOTAL ABD HYSTERECTOMY W/WO REMOVAL OF TUBE(S) 2009 endometrial cancer TOTAL HIP REPLACEMENT & PROSTHESIS 09/24/03 Right Hip Replacement [facility] TOTAL HIP REPLACEMENT & PROSTHESIS 12/24/03 Left Hip Replacement [facility] Dr. Carroll US - BREAST(S) 10/05/01 Social History Tobacco Use Smoking status: Never Passive exposure: Current Smokeless tobacco: Never Substance Use Topics Alcohol use: No Comment: none Vaping/E-Cigarette Use Vaping/E-Cigarette Use Never User Vaping/E-Cigarette Substances Vaping/E-Cigarette Devices Current Outpatient Medications Medication Sig Dispense Refill fluticasone (FLONASE) 50 MCG/ACT nasal spray Administer 2 Sprays into each nostril daily. 1 Inhaler5 Acetaminophen 325 MG Oral Capsule Take by mouth 325 mg 4 times a day as needed . Meclizine HCl 12.5 MG Oral Tablet (Antivert) Take 1 Tablet by mouth 3 times a day as needed for Dizziness. 30 Tablet 1 Atorvastatin Calcium 40 MG Oral Tablet (Lipitor) TAKE 1 TABLET BY MOUTH EVERY DAY IN THE MORNING 90Tablet 3 Metoprolol Succinate ER 25 MG Oral Tablet Extended Release 24 Hour (toPROL XL) Take 1 Tablet by mouth in the morning. 90 Tablet 3 Sertraline HCl 50 MG Oral Tablet (Zoloft) TAKE 1 TABLET BY MOUTH EVERY DAY IN THE MORNING 90 Tablet3 Diclofenac Sodium 1 % External Gel (Voltaren) Apply topically to affected area 3 times a day as needed for Pain. Apply to affected area 100 g 2 Omeprazole 20 MG Oral Capsule Delayed Release (PriLOSEC) TAKE 1 CAPSULE BY MOUTH IN THE MORNING AND1 CAPSULE BEFORE BEDTIME. 30 MINUTES BEFORE A MEAL. 180 Capsule 3 LORazepam 1 MG Oral Tablet (Ativan) TAKE 1 TABLET BY MOUTH TWICE A DAY NEEDED FOR ANXIETY 60 Tablet 0 Oseltamivir Phosphate 75 MG Oral Capsule (Tamiflu) Take 1 Capsule by mouth in the morning and 1 Capsule before bedtime. Do all this for 5 days. For 5 days.. 10 Capsule 0 Albuterol Sulfate HFA 108 (90 Base) MCG/ACT Inhalation Aerosol Solution Inhale 2 Puffs by mouth every 4 hours as needed for Shortness of Breath or Dyspnea. 6.7 g 11 Current Facility-Administered Medications Medication Dose Route Frequency Provider Last Rate Last Admin ondansetron (Zofran) tab 4 mg 4 mg Oral Once Review of patient's allergies indicates: Allergen Reactions Buspirone Hcl Edema airway Augmentin [Amoxicillin-Pot Clavulanate] diarrhea Crestor [Rosuvastatin] Restless leg Acyclovir And Related Hives and Other (Please comment) SOB Codeine Nausea/vomiting and Other (Please comment) Patient states she passed out. Salicylates Nausea/vomiting Nose Bleeds. Sulfa Antibiotics Nausea/vomiting Family History Problem Relation Name Age of Onset Other (Other) Sister MVA, caregivers at pt's home Neurological Disorder Sister epilepsy- at age 59 Cancer Sister liver Stroke Mother , age 29- brain anuerysm Alcohol and Other Disorders Associated Father Cancer Father kidney,status post nephrectomy. Also lung cancer Emphysema Father Asthma Daughter Other (DVT) Sister Pulmonary embolus, Heart Disorder Grandmother (Maternal) coronary artery disease, age 64 OBJECTIVE BP 153/68 | Pulse 68 | Temp (!) 38.3 C (100.9 F) (Tympanic) | Resp 20 | Ht 1.6 m (5' 3") | Wt 84.6 kg (186 lb 9.6 oz) | SpO2 94% | BMI 33.05 kg/m | BSA 1.94 m Wt Readings from Last 1 Encounters: 05/03/24 84.6 kg (186 lb 9.6 oz) General Appearance: awake, alert, no apparent distress HEENT: perrl and eomi tms - clear, normal light reflex, no erythema + red and irritated pharynx No sinus tenderness or facial pain to percussion + turbinate engorgement and discharge Neck: normal, supple, no adenopathy Respiratory: clear to auscultation, no rhonchi, no wheezes, and no crackles Heart: regular rate, regular rhythm, no murmurs , no rubs, and no gallops Skin: skin color, texture, turgor are normal, no rashes or significant lesions There are no Patient Instructions on file for this visit. ASSESSMENT AND PLAN Flu-like symptoms (Primary) - Oseltamivir Phosphate 75 MG Oral Capsule (Tamiflu); Take 1 Capsule by mouth in the morning and 1 Capsule before bedtime. Do all this for 5 days. For 5 days.. - INFLUENZA A/B RSV SARS-COV2,PCR - XR CHEST 2 VIEWS - Albuterol Sulfate HFA 108 (90 Base) MCG/ACT Inhalation Aerosol Solution; Inhale 2 Puffs by mouth every 4 hours as needed for Shortness of Breath or Dyspnea. - ondansetron (Zofran) tab 4 mg Hypoxia - Albuterol Sulfate HFA 108 (90 Base) MCG/ACT Inhalation Aerosol Solution; Inhale 2 Puffs by mouth every 4 hours as needed for Shortness of Breath or Dyspnea. - ondansetron (Zofran) tab 4 mg Acute cough Xray done today: IMPRESSION No acute pulmonary abnormality seen radiographically. Will start tamiflu If negative, will stop Rest of plan as noted in pt instructions Follow Up: Return for Patient to follow up with Primary Care Provider as directed. | For: Patient to follow up with Primary Care Provider as directed Patient goals for plan of care were discussed Apolinar Cheema PA-C [facility] [address] [facility] [place] [phone] documented in this encounter Nursing Notes * Carol Solorio LPN - 05/03/2024 9:32 AM EDT Sharon Angelo is a 73 year old female who presents to walk-in clinic today complaining of Chief Complaint Patient presents with Vomiting Nausea Cough Ear Pain Brief history:vomiting, nausea, cough, bilateral ear pain Onset/duration: 2 days. OTC treatments tried:tylenol Patient is accompanied by no one for today's visit. documented in this encounter Miscellaneous Notes * Addendum Note - Apolinar Cheema PA-C - 05/03/2024 10:47 AM EDT Addended by: APOLINAR CHEEMA on: 05/03/2024 10:47 AM Modules accepted: Orders documented in this encounter Plan of Treatment Upcoming Encounters Date Type Department Care Team (Late st Contact Info) Description 05/17/2024 11:30 AM EDT Office Visit [facility] [address] [facility] [place] [phone] Lucita Payan, DO [address] [facility] [place] [address] 07/18/2024 10:30 AM EDT Office Visit Cardiology, [facility] [address] [place] [address] Esvin Payan DO [address] [place] [address] 08/08/2024 11:30 AM EDT Imaging Radiology [facility] [address] [place] [phone] 11/29/2024 11:00 AM EDT Nurse Only Ancillary Department, Andre Ramirze [address] [place] [phone] Andre, Nurse [facility] [address] [facility] [place] [address] Pending Results Name Type Priority Associated Diagnoses Date /Time INFLUENZA A/B RSV SARS-COV2,PCR Lab STAT Flu-like symptoms 05/03/2024 10:36 AM EDT Scheduled Procedures Name Priority Associated Diagnoses Date/Ti [...] 07/2022, 07/22/2022, Additional history exists Albumin/Creatinine Ratio 07/28/20242 024, 02/27/2022, 12/25/2020, Additional history exists GFR [...] Not on filedocumented as of this encounter Procedures Procedure Name Priority Date/Time Associated Diagnosis Comments XR CHEST 2 VIEWS STAT 05/03/2024 10:1 1 AM EDT Flu-like symptoms documented in this encounter Results * XR CHEST 2 VIEWS (05/03/2024 10:11 AM EDT) Anatomical Region Laterality Modality Chest Digital Radiogra phy 05/03/2024 10:2 2 AM EDT Impressions 05/03/2024 10:19 AM EDT IMPRESSION No acute pulmonary abnormality seen radiographically. Narrative 05/03/2024 10:19 AM EDT EXAM XR CHEST 2 VIEWS-05/03/2024 10:11 am HISTORY HYPOXIA, R/O PNA COMPARISON None TECHNIQUE Chest x-ray two views FINDINGS The cardiomediastinal silhouette is borderline enlarged. There are no pulmonary consolidations, pleural effusions or pneumothorax. There is no acute bone abnormality. Postoperative changes of right shoulder arthroplasty are noted. Irregular calcifications are seen in the left breast. Procedure Note Calista Levin MD - 05/03/2024 EXAM XR CHEST 2 VIEWS-05/03/2024 10:11 am HISTORY HYPOXIA, R/O PNA COMPARISON None TECHNIQUE Chest x-ray two views FINDINGS The cardiomediastinal silhouette is borderline enlarged. There are nopulmonary consolidations, pleural effusions or pneumothorax. There is noacute bone abnormality. Postoperative changes of right shoulderarthroplasty are noted. Irregular calcifications are seen in the leftbreast. IMPRESSION IMPRESSION No acute pulmonary abnormality seen radiographically. Apolinar Cheema PA-C RADIOLOGY (RAD GENER AL) Final Result documented in this encounter Visit Diagnoses Diagnosis Flu-like symptoms- Primary Influenza with other respiratory manifestations Hypoxia Hypoxemia Acute cough documented in this encounter Administered Medications Inactive Administered Medications - up to 3 most recent administrations Medication Order MAR Action Action Date Dose Rate Site ondansetron (Zofran) tab 4 mg 4 mg, Oral, ONCE, On Wed05/03/24 at 1045, For 1 doseIndications:Flu-like symptoms,Hypoxia Given 05/03/2024 10:13 AM EDT 4 mg documented in this encounter Care Teams Nurse Rn Bsn Relationship Specialty Start Date End Date Lucita Payan DO [address] [place] [address] PCP - General Family Medicine 03/08/24 documented as of this encounter
--- OUTSIDE RECORDS SUMMARY | 2024-05-06 12:23 | External Medical Summary | Summary of Care ---
Author Name Unknown Organization [facility] Address [address] [facility] [address] Phone [phone] Care Team Providers Care Scheduling Representative Name Role Phone Irena Mcnair DO Primary Care Provider Reason for Visit * Reason Comments eRx-Medication Refill Encounter Details Date Type Department Care Team (Late st Contact Info) Description 04/10/2024 Refill [facility] [address] [facility] [place] [address] Irena Mcnair DO [address] [facility] [address] Depression with anxiety Allergies Active Allergy [...] 03/20/2015 GENERALIZED ANXIETY DIS 05/25/199702/23 LOC PRIM [id number] 05/25/199702/23 Dyspnea and respiratory abnormality 05/25/1997 03/20/2015 Overview (12/15/2016): ICD-10 update of inactive term Other chest pain 05/25/1997 03/20/2015 Mitral valve disorder 02/22/19852015 Arthritis of hip 03/20/2015 HTN, goal below 140/90 01/07 documented as of this encounter (statuses as of 04/12/2024) Immunizations Name Administration Dates Next Due COVID-19 mRNA, LNP-s, No Pre serve, 2-Dose Series ([employer]) 01/23/2021,05/01/2020,04/10/2020 Covid-19, Mrna, Lnp-s, Pf, B ivalent, [...] Notes * Telephone Encounter - Juan Turcios maintenance data analyst - 04/12/2024 9:52 AM EST Advised pt that RX was sent to pharmacy. Thank You, Juan Turcios [facility] Entry Table Operator II [facility] 04/12/2024, 9:52 AM * Telephone Encounter - Irena Mcnair DO - 04/12/2024 9:29 AM ESTSigned Prescriptions: Disp Refills LORazepam 1 MG Oral Tablet (Ativan) 60 Tab*0 Sig: TAKE 1 TABLET BY MOUTH TWICE A DAY NEEDED FOR ANXIETY Authorizing Provider: IRENA MCNAIR * Telephone Encounter - Virginia Luciano [facility] - 04/11/2024 12:43 PM ESTPending Prescriptions: Disp Refills LORazepam 1 MG Oral Tablet [Pharmacy Med N*60 Tab*0 Sig: TAKE 1 TABLET BY MOUTH TWICE A DAY NEEDED FOR ANXIETY * Telephone Encounter - Sweta Johnson [facility] - 04/11/2024 10:54 AM ESTPending Prescriptions: Disp Refills LORazepam 1 MG Oral Tablet [Pharmacy Med N*60 Tab*0 Sig: TAKE 1 TABLET BY MOUTH TWICE A DAY NEEDED FOR ANXIETY * Telephone Encounter - Sweta Johnson [facility] - 04/11/2024 10:53 AM EST I have reviewed the patients controlled substance dispensing history in the Prescription Drug Monitoring Program in compliance with the [facility] regulations before prescribing a controlled substance. PDMP [...] is due for refill: 04/04 Pharmacy: [id number] [address] [facility] Is this request for a controlled substance? Yes and Urine Drug Screen Not completed Toxicology results: No results found for this or any previous visit. Please approve if appropriate. Thanks, Sweta Johnson, PharmD Clinical Pharmacist [facility] ([facility]) [phone] 04/11/2024 10:53 AM * Telephone Encounter - Karon Vincent PHARM Tech - 04/11/2024 10:31 AM EST Pt requesting high priority. She will be out of medication in next few days. Pt calling to check on status of LORazepam 1 MG Oral Tablet (Ativan) . Caller can be reached at [phone]. Thank you, Karon Vincent Virtualization Consultant I [facility] ([facility]) 04/11/2024,10:32 AM documented in this encounter Plan of Treatment Upcoming Encounters Date Type Department Care Team (Late st Contact Info) Description 05/17/2024 11:30 AM EDT Office Visit Family Practice, Andre Loya [address] [place] [phone] Irena Mcnair DO [address] [place] [address] 07/18/2024 10:30 AM EDT Office Visit Cardiology, [facility] [address] [place] [address] Esvin Mcnair DO [address] [place] [address] 08/08/2024 11:30 AM EDT Imaging Radiology [facility] [address] [place] [phone] 11/29/2024 11:00 AM EDT Nurse Only Ancillary Department, Andre Hernandez [address] [place] [phone] Andre, Nurse Annual Wellness [address] [place] [address] Scheduled Procedures Name Priority Associated Diagnoses Date/Ti [...] disorder documented in this encounter Care Teams Scheduling Representative Relationship Specialty Start Date End Date Irena Mcnair DO [address] [place] [phone] PCP - General Family Medicine 03/08/24 documented as of this encounter
--- OUTSIDE RECORDS SUMMARY | 2024-05-06 12:23 | External Medical Summary | Summary of Care ---
Author Name Unknown Organization [facility] Address [address] [facility] [place] [address] Phone [phone] Care Team Providers Care Customer Support Assistant Name Role Phone EdwinLucita del cid Maya CHAMBERLAIN Primary Care Provider [phone] Reason for Visit * Reason Onset Date Comments Vomiting Nausea Cough Ear Pain Respiratory Infection 05/03/2024 Encounter Details Date Type Department Care Team (Latest Contact Info) Description 05/03/2024 9:40 AM EDT [place] [facility] [place] [facility] [place] [phone] Apolinar Cheema PA-C [address] [facility] [place], [place] [phone] Flu-like symptoms*; Hypoxia; Acute cough Allergies Active [...] 03/20/2015 GENERALIZED ANXIETY DIS 05/25/199702/23 LOC PRIM [id number] 05/25/199702/23 Dyspnea and respiratory abnormality 05/25/1997 03/20/2015 Overview (12/15/2016): ICD-10 update of inactive term Other chest pain 05/25/1997 03/20/2015 Mitral valve disorder 02/22/19852015 Arthritis of hip 03/20/2015 HTN, goal below 140/90 01/07 documented as of this encounter (statuses as of 05/03/2024) Immunizations Name Administration Dates Next Due COVID-19 mRNA, LNP-s, No Pre serve, 2-Dose Series ([employer]) 01/23/2021,05/01/2020,04/10/2020 Covid-19, Mrna, Lnp-s, Pf, B ivalent, [...] No 11/24/2023 Does the household have a [facility] source of income? (Household - for ages [...] of female breast 10/18/01 left ductal carcinoma, [id number], upper inner quad Migraine with aura Mitral [...] performed by Opal Romero DO at ENDOSCOPY [facility] DENTAL SURGERY PROCEDURE NEC Dental Surgery Procedure DILATION AND CURETTAGE (D&C) D&C FLUORO UPPER GI W AIR WO KUB GERD HOLTER COMPLETE (COMM PRAC) isolated supravent ectopy, sinus tach LAPAROSCOPY; CHOLECYSTECTOMY 09/24/2016 Laparoscopic cholecystectomy performed by Dr. Angel Davila at [facility] 09/24/2016 LIGATE/CUT OVIDUCT(S) 1972 Tubal Ligation MAMMOGRAM SCREENING-BILATERAL 09/21/01 MASTECTOMY, PARTIAL Left 11/09/2001 no chemo MRI BRAIN WITH CONTRAST hyperintensity caudate nucleus, nonspecific finding NEEDLE BIOPSY/REMOVE LYMPH NODE(S) 11/09/01 left axillary sentinel lymph node biopsy. NM LYMPHATICS AND LYMPH NODE IMAGING 11/09/01 left breast ca PARTIAL MASTECTOMY 11/09/01 left breast,[facility] () PLACE NEEDLE LOC WIRE, BREAST 11/09/01 left breast ca RADIATION THERAPY 2001 RADIATION THERAPY MANAGEMENT Left 2001 RADIATION THERAPY MANAGEMENT [facility] 12/12/01-01/15/02 left breast and chest wall,(4680cGy), [facility] RADIATION THERAPY MANAGEMENT [facility] 01/16/02-01/30/02 left breast boost,(1440cGy) [facility], REMOVE CATARACT, INSERT LENS PROSTH 2006 bilateral SENTINEL LYMPH NODE BIOPSY PERFORMED Left 2001 TOTAL ABD HYSTERECTOMY W/WO REMOVAL OF TUBE(S) 2009 endometrial cancer TOTAL HIP REPLACEMENT & PROSTHESIS 09/24/03 Right Hip Replacement [facility] TOTAL HIP REPLACEMENT & PROSTHESIS 12/24/03 Left Hip Replacement [facility] Dr. Carroll US - BREAST(S) 10/05/01 [...] Inhalation Aerosol Solution; Inhale 2 Puffs by mouthevery 4 hours as needed for Shortness of [...] of care were discussed Apolinar Cheema PA-C [facility] [place] [facility] [place] [phone] documented in this encounter Nursing Notes * [...] Description 05/17/2024 11:30 AM EDT Office [facility] [address] [facility] [place] [phone] Lucita Payan, DO [address] [facility] [place] [address] 07/18/2024 10:30 AM EDT Office Visit Cardiology, [facility] [address] [place] [address] Esvin Payan DO [address] [place] [address] 08/08/2024 11:30 AM EDT Imaging Radiology [facility] [address] [place] [phone] 11/29/2024 11:00 AM EDT Nurse Only Ancillary Department, Andre Ramirez [address] [place] [phone] Andre, Nurse Annual Wellness [address] [facility] [place] [address] Pending Results Name Type Priority Associated Diagnoses [...] mg documented in this encounter Care Teams Customer Support Assistant Relationship Specialty Start Date End Date Lucita Payan DO [address] [place] [address] PCP - General Family Medicine 03/08/24 documented as of this encounter
--- OUTSIDE RECORDS SUMMARY | 2024-05-06 12:23 | External Medical Summary | Summary of Care ---
Author Name Unknown Organization [facility] Address [address] [facility] [address] Phone [phone] Care Team Providers Care Shallot Cleaner Name Role Phone Lucita Payan Primary Care Provider Encounter Details Date Type Department Care Team (Late st Contact Info) Description 03/14/2024 Population Health External Data Unspecified Department Allergies Active Allergy Reactions Criticality Noted Date Comments Acyclovir And Related Hives,Other (Pleas e comment) Low 07/10/2003 SOB Amoxicillin-Pot Clavulanate 07/22/2022 diarrhea Buspirone Hcl Edema airway High 05/25/1997 Codeine Nausea/vomiting,Othe r (Please comment) Low 05/26/2012 Patient states she passed out. Rosuvastatin 08/26/2021 Restless leg Salicylates Nausea/vomiting Low 05/25/1997 Nose Bleeds. Sulfa Antibiotics Nausea/vomiting Low 06/23/2002 documented as of this encounter (statuses as of 03/14/2024) Medications fluticasone (FLONASE) 50 MCG/ACT nasal sprayIndications:Tin [...] A DAY NEEDED FOR ANXIETY 60 Tablet 03/06/19 25 Active documented as of this encounter (statuses as of 03/14/2024) Active Problems Problem Noted Date Diagnosed Date [...] as of this encounter (statuses as of 03/14/2024) Resolved Problems Problem Noted Date Diagnosed Date [...] 03/20/2015 GENERALIZED ANXIETY DIS 05/25/199702/23 LOC PRIM [id number] 05/25/199702/23 Dyspnea and respiratory abnormality 05/25/1997 03/20/2015 Overview (12/15/2016): ICD-10 update of inactive term Other chest pain 05/25/1997 03/20/2015 Mitral valve disorder 02/22/19852015 Arthritis of hip 03/20/2015 HTN, goal below 140/90 01/07 documented as of this encounter (statuses as of 03/14/2024) Immunizations Name Administration Dates Next Due COVID-19 mRNA, LNP-s, No Pre serve, 2-Dose Series ([employer]) 01/23/2021,05/01/2020,04/10/2020 Covid-19, Mrna, Lnp-s, Pf, B ivalent, [...] t, Adjuvanted, 65+ YRS, PF, (Fluad) 12/21/2018 TDAP (age 10 and older)([employer]) 08/18/2017 documented [...] No 11/24/2023 Does the household have a [facility] source of income? (Household - for ages [...] ages 0-17 years) Not on file 11/24/2023 Comments No Sex and Gender Information Value Date Recorded Sex Assigned at Female 06/20/2018 12:01 PM EDT Legal Sex Female 4:51 AM EST Gender Identity Female 06/20/2018 12:01 PM EDT Sexual Orientation Straight 06/20/2018 12 :01 PM EDT Occupation Industry Job Start Date Job End Date HOMEMAKER Not on file Not on file Not on file documented as of this encounter Plan of Treatment Upcoming Encounters Date Type Department Care Team (Latest Contact Info) Description 03/21/2024 8:00 AM EST Hospital Encounter ENDO [facility], Endoscopy Room [facility] [address] [place] [phone] Toñito Elena MD [address] [place] [address] 03/21/2024 8:00 AM EST - 03/21/2024 8:30 AM EST Surgery ENDO [facility], Endoscopy Room [facility] [address] [place] [phone] Toñito Elena MD [address] [place] [address] ESOPHAGOGASTRODUODENOSCOPY (EGD), FLEXIBLE, TRANSORAL, DIAGNOSTIC 05/17/2024 11:30 AM EDT Office Visit Family [facility], Andre Loya [address] [place] [phone] Lucita Payan DO [address] [place] [address] 07/18/2024 10:30 AM EDT Office Visit Cardiology, [facility] [address] [place] [address] Esvin Payan DO [address] [place] [address] 08/08/2024 11:30 AM EDT Imaging Radiology [facility] [address] [place] [phone] 11/29/2024 11:00 AM EDT Nurse Only Ancillary Department, Andre Hernandez [address] [place] [phone] Andre Nurse Annual Wellness [address] [place] [address] Scheduled Procedures Name Priority Associated Diagnoses Date/Ti me ESOPHAGOGASTRODUODENOSCOPY ( EGD), FLEXIBLE, TRANSORAL, DIAGNOSTIC Esophageal pain 03/21/2024 8:00 AM EST COLONOSCOPY FLEXIBLE PROXIMA L DIAGNOSTIC Recall Colon cancer screening Health Maintenance [...] Not on filedocumented as of this encounter Care Teams Shallot Cleaner Relationship Specialty Start Date End Date Lucita Payan DO [address] [place] [phone] PCP - General Family Medicine 03/08/24 documented as of this encounter
--- OUTSIDE RECORDS SUMMARY | 2024-05-06 12:23 | External Medical Summary | Summary of Care ---
Author Name Unknown Organization [facility] Address [address] [place] [address] Phone [phone] Care Team Providers Care Pillowcase Folder Name Role Phone Lucita Payan DO Primary Care Provider [phone] Reason for Visit * Reason Onset Date Comments Test Results Lab 05/03/2024 Encounter Details Date Type Department Care Team (Late st Contact Info) Description [facility]/03[facility] [address] [place] [phone] Apolinar Eid PA-C [address] [employer] [place] [address] Test Results Lab Allergies Active Allergy [...] 03/20/2015 GENERALIZED ANXIETY DIS 05/25/199702/23 LOC PRIM [id number] 05/25/199702/23 Dyspnea and respiratory abnormality 05/25/1997 03/20/2015 Overview (12/15/2016): ICD-10 update of inactive term Other chest pain 05/25/1997 03/20/2015 Mitral valve disorder 02/22/19852015 Arthritis of hip 03/20/2015 HTN, goal below 140/90 01/07 documented as of this encounter (statuses as of 05/04/2024) Immunizations Name Administration Dates Next Due COVID-19 mRNA, LNP-s, No Pre serve, 2-Dose Series ([employer]) 01/23/2021,05/01/2020,04/10/2020 Covid-19, Mrna, Lnp-s, Pf, B ivalent, [...] Family Practice, Andre Loya [address] [place] [phone] Lucita Payan, DO [address] [place] [address] 07/18/2024 10:30 AM EDT Office Visit Cardiology, [facility] [address] [place] [address] Esvin Payan, DO [address] [place] [address] 08/08/2024 11:30 AM EDT Imaging Radiology [facility] [address] [place] [phone] 11/29/2024 11:00 AM EDT Nurse Only Ancillary Department, Andre Hernandez [address] [place] [phone] Andre, Nurse Annual Wellness [address] [place] [address] Scheduled Procedures Name Priority Associated Diagnoses Date/Ti [...] documented as of this encounter Care Teams Pillowcase Folder Relationship Specialty Start Date End Date Lucita Payan DO [address] [place] [address] PCP - General Family Medicine 03/08/24 documented as of this encounter
--- OUTSIDE RECORDS SUMMARY | 2024-05-06 12:23 | External Medical Summary | Summary of Care ---
Author Name Unknown Organization [facility] Address [address] [facility] [place] [address] Phone [phone] Care Team Providers Care Pattern Chain Builder Name Role Phone EdwinLucita del cid Maya CHAMBERLAIN Primary Care Provider Reason for Visit * Reason Onset Date Comments Vomiting Nausea Cough Ear Pain Respiratory Infection 05/03/2024 Encounter Details Date Type Department Care Team (Latest Contact Info) Description 05/03/2024 9:40 AM EDT Convenient Care Visit [facility] [address] [facility] [place] [phone] Apolinar Cheema PA-C [address] [facility] [place], [place] [phone] Flu-like symptoms*; Hypoxia; Acute cough Allergies Active [...] 03/20/2015 GENERALIZED ANXIETY DIS 05/25/199702/23 LOC PRIM [id number] 05/25/199702/23 Dyspnea and respiratory abnormality 05/25/1997 03/20/2015 Overview (12/15/2016): ICD-10 update of inactive term Other chest pain 05/25/1997 03/20/2015 Mitral valve disorder 02/22/19852015 Arthritis of hip 03/20/2015 HTN, goal below 140/90 01/07 documented as of this encounter (statuses as of 05/03/2024) Immunizations Name Administration Dates Next Due COVID-19 mRNA, LNP-s, No Pre serve, 2-Dose Series ([employer]) 01/23/2021,05/01/2020,04/10/2020 Covid-19, Mrna, Lnp-s, Pf, B ivalent, [...] No 11/24/2023 Does the household have a [facility] source of income? (Household - for [...] of female breast 10/18/01 left ductal carcinoma, [id number], upper inner quad Migraine with aura Mitral [...] performed by Opal Romero DO at ENDOSCOPY [facility] DENTAL SURGERY PROCEDURE NEC Dental Surgery Procedure DILATION AND CURETTAGE (D&C) D&C FLUORO UPPER GI W AIR WO KUB GERD HOLTER COMPLETE (COMM PRAC) isolated supravent ectopy, sinus tach LAPAROSCOPY; CHOLECYSTECTOMY 09/24/2016 Laparoscopic cholecystectomy performed by Dr. Angel Davila at [facility] 09/24/2016 LIGATE/CUT OVIDUCT(S) 1972 Tubal Ligation MAMMOGRAM SCREENING-BILATERAL 09/21/01 MASTECTOMY, PARTIAL Left 11/09/2001 no chemo MRI BRAIN WITH CONTRAST hyperintensity caudate nucleus, nonspecific finding NEEDLE BIOPSY/REMOVE LYMPH NODE(S) 11/09/01 left axillary sentinel lymph node biopsy. NM LYMPHATICS AND LYMPH NODE IMAGING 11/09/01 left breast ca PARTIAL MASTECTOMY 11/09/01 left breast,[facility] () PLACE NEEDLE LOC WIRE, BREAST 11/09/01 left breast ca RADIATION THERAPY 2001 RADIATION THERAPY MANAGEMENT Left 2001 RADIATION THERAPY MANAGEMENT [facility] 12/12/01-01/15/02 left breast and chest wall,(4680cGy), [facility] RADIATION THERAPY MANAGEMENT [facility] 01/16/02-01/30/02 left breast boost,(1440cGy) [facility], REMOVE CATARACT, INSERT LENS PROSTH 2006 bilateral SENTINEL LYMPH NODE BIOPSY PERFORMED Left 2001 TOTAL ABD HYSTERECTOMY W/WO REMOVAL OF TUBE(S) 2009 endometrial cancer TOTAL HIP REPLACEMENT & PROSTHESIS 09/24/03 Right Hip Replacement [facility] TOTAL HIP REPLACEMENT & PROSTHESIS 12/24/03 Left Hip Replacement [facility] Dr. Carroll US - BREAST(S) 10/05/01 Social [...] of care were discussed Apolinar Cheema PA-C [facility] [address] [facility] [place] [phone] documented in this encounter Nursing Notes * [...] Description 05/17/2024 11:30 AM EDT Office Visit [facility] [address] [facility] [place] [phone] Lucita Payan, DO [address] [facility] [place] [address] 07/18/2024 10:30 AM EDT Office Visit Cardiology, [facility] [address] [place] [address] Esvin Payan DO [address] [place] [address] 08/08/2024 11:30 AM EDT Imaging Radiology [facility] [address] [place] [phone] 11/29/2024 11:00 AM EDT Nurse Only Ancillary Department, Andre Ramirez [address] [place] [phone] Andre, Nurse Annual Wellness [address] [facility] [place] [address] Pending Results Name Type Priority Associated Diagnoses [...] mg documented in this encounter Care Teams Pattern Chain Builder Relationship Specialty Start Date End Date Lucita Payan DO [address] [place] [address] PCP - General Family Medicine 03/08/24 documented as of this encounter
--- OUTSIDE RECORDS SUMMARY | 2024-05-06 12:24 | External Medical Summary | Summary of Care ---
Author Name Unknown Organization [facility] Address [address] [facility] [place] [address] Phone [phone] Care Team Providers Care Automotive Service Manager Name Role Phone Lucita Payan DO Primary Care Provider Reason for Visit * Reason Onset Date Comments Health Maintenance 01/31/2024 Encounter Details Date Type Department Care Team (Late st Contact Info) Description 01/31/2024 Telephone [facility] [address] [facility] [place] [phone] Lucita Payan DO 226 [place] [address] Health Maintenance Allergies Active Allergy Reactions Criticality Noted Date Comments Acyclovir And Related Hives,Other (Pleas e comment) Low 07/10/2003 SOB Amoxicillin-Pot Clavulanate 07/22/2022 diarrhea Buspirone Hcl Edema airway High 05/25/1997 Codeine Nausea/vomiting,Othe r (Please comment) Low 05/26/2012 Patient states she passed out. Rosuvastatin 08/26/2021 Restless leg Salicylates Nausea/vomiting Low 05/25/1997 Nose Bleeds. Sulfa Antibiotics Nausea/vomiting Low 06/23/2002 documented as of this encounter (statuses as of 01/31/2024) Medications fluticasone (FLONASE) 50 MCG/ACT nasal sprayIndications:Tin nitus of both ears,Dysfunction of Eustachian tube, bilateral,Chronic rhinitis Administer 2 Sprays into each nostril daily. 1 Inhaler 5 01/08/20 16 Active Acetaminophen 325 MG Oral Capsule Take by mouth 325 mg 4 times a day as needed . 04/16/19 22 Active Omeprazole 20 MG Oral Capsule Delayed Release (PriLOSEC) Take 1 Capsule by mouth in the morning and 1 Capsule before bedtime. 30 minutes before a meal. 180 Capsule 3 01/28/20 23 Active Meclizine HCl 12.5 MG Oral Tablet [...] MORNING 90 Tablet 3 12/21/19 24 Active LORazepam 1 MG Oral Tablet (Ativan)Indications: Depression with anxiety TAKE 1 TABLET BY MOUTH TWICE A DAY NEEDED FOR ANXIETY 60 Tablet 12/22/19 24 Active Diclofenac Sodium 1 % External Gel (Voltaren) Apply topically to affected area 3 times a day as needed for Pain. Apply to affected area 100 g 2 12/27/19 24 Active documented as of this encounter (statuses as of 01/31/2024) Active Problems Problem Noted Date Diagnosed Date [...] as of this encounter (statuses as of 01/31/2024) Resolved Problems Problem Noted Date Diagnosed Date [...] 03/20/2015 GENERALIZED ANXIETY DIS 05/25/199702/23 LOC PRIM [id number] 05/25/199702/23 Dyspnea and respiratory abnormality 05/25/1997 03/20/2015 Overview (12/15/2016): ICD-10 update of inactive term Other chest pain 05/25/1997 03/20/2015 Mitral valve disorder 02/22/19852015 Arthritis of hip 03/20/2015 HTN, goal below 140/90 01/07 documented as of this encounter (statuses as of 01/31/2024) Immunizations Name Administration Dates Next Due COVID-19 mRNA, LNP-s, No Pre serve, 2-Dose Series ([employer]) 01/23/2021,05/01/2020,04/10/2020 Covid-19, Mrna, Lnp-s, Pf, B ivalent, 30 Mcg, IM, 12 yrs and above ([employer]) 12/30/2021 Pneumococcal Conjugate Vacc, 13 Valent (Prevnar) [...] No 11/24/2023 Does the household have a [facility] source of income? (Household - for [...] encounter Miscellaneous Notes * Telephone Encounter - Constance Dennis LPN - 01/31/2024 9:18 AM EST Care Gaps Comprehensive Care Outreach Last Office/Telemedicine Visit: Visit date not found (in office), Visit date not found (telemedicine) Next Office Visit: 05/17/2024 Hemoglobin AIC Results: Lab Results Component Value Date/Time HEMOGLOBIN A1C - [facility] 5.8 (H) 07/29/2023 10:50 AM HEMOGLOBIN A1C - [facility] 5.9 (H) 01/27/2023 12:39 PM HEMOGLOBIN A1C - [facility] 5.8 (H) 07/22/2022 11:13 AM HEMOGLOBIN A1C - [facility] 5.6 11/03/2019 08:44 AM HEMOGLOBIN A1C - [facility] 5.7 (H) 04/26/2019 12:27 PM HEMOGLOBIN A1C - [facility] 5.6 06/15/2018 08:45 AM BP Readings from Last 1 Encounters: 12/07/23 142/70 Reviewed Health Maintenance below: Health Maintenance Topic Date Due Hepatitis C Screening Never done Zoster Vaccines (1 of 2) Never done DXA Scan 04/30/2020 Diabetic Eye Exam 07/24/2023 COVID-19 Vaccine ( season) 2023 Diabetic Foot Exam 11/20/2023 HbA1c 01/28/2024 Labs [facility] scheduled Care Gap Outreach Action Taken: Spoke to patient documented in this encounter Plan of Treatment Upcoming Encounters Date Type Department Care Team (Latest Contact Info) Description 05/17/2024 11:30 AM EDT [facility] [address] [place] [phone] Lucita Payan DO [address] [place] [address] 05/31/2024 11:15 AM EDT Hospital Encounter ENDO [facility], Endoscopy Room [facility] [address] [place] [phone] Olga Grubbs MD [address] [place] [address] 05/31/2024 11:15 AM EDT - 05/31/2024 11:45 AM EDT Surgery ENDO [facility], Endoscopy Room [facility] [address] [facility] [place] [phone] Olga Grubbs MD [address] [place] [address] ESOPHAGOGASTRODUODENOSCOPY (EGD), FLEXIBLE, TRANSORAL, DIAGNOSTIC 07/18/2024 10:30 AM EDT Office Visit Cardiology, [facility] [address] [facility] [place] [address] Esvin Payan DO 132 [facility] [place] [address] 08/08/2024 11:30 AM EDT Imaging Radiology, [place] [address] [place] [address] 11/29/2024 11:00 AM EDT Nurse Only Ancillary Department, [facility] [phone] [place], Nurse Annual Wellness [address] [place] [address] Scheduled Orders Name Type Priority Associated Diagnoses Orde r Schedule HEMOGLOBIN A1C Lab Routine Diabetes mellitus (HCC) Expected: 04/30/2024, Expires: 01/30/2025 Scheduled Procedures Name Priority Associated Diagnoses Date/Ti me ESOPHAGOGASTRODUODENOSCOPY ( EGD), FLEXIBLE, TRANSORAL, DIAGNOSTIC Esophageal pain 05/31/2024 11:15 AM EDT COLONOSCOPY FLEXIBLE PROXIMA L DIAGNOSTIC Recall Colon [...] 09/10/2015 Colorectal Cancer Screening Discontinued Pneumococcal Vaccine: 65+ Years Completed 03/02/2017, 03/20/2015 Influenza Vaccine (FLU [...] as of this encounter Visit Diagnoses Diagnosis Diabetes mellitus (HCC)- Primary Type II or unspecified type diabetes mellitus without mention of complication, not stated as uncontrolled Esophageal pain Other specified disorder of the esophagus documented in this encounter Care Teams Automotive Service Manager Relationship Specialty Start Date End Date Kopinski, Lucita L, DO [address] [place] [address] PCP - General Family Medicine 08/18/17 documented as of this encounter
--- OUTSIDE RECORDS SUMMARY | 2024-05-06 12:24 | External Medical Summary | Summary of Care ---
Author Name Unknown Organization [facility] Address [address] [facility] [address] Phone [phone] Care Team Providers Care Pest Control Service Sales Agent Name Role Phone Irena Mcnair DO Primary Care Provider Reason for Visit * Reason Comments eRx-Medication Refill Encounter Details Date Type Department Care Team (Late st Contact Info) Description 03/03/2024 Refill [facility] [address] [facility] [place] [address] Irena Mcnair DO [address] [facility] [address] Depression with anxiety Allergies Active Allergy [...] as of this encounter (statuses as of 03/06/2024) Medications fluticasone (FLONASE) 50 MCG/ACT nasal sprayIndications:Ti [...] A DAY NEEDED FOR ANXIETY 60 Tablet 024 2024 Discontinued documented as of this encounter (statuses as of 03/06/2024) Active Problems Problem Noted Date Diagnosed Date [...] as of this encounter (statuses as of 03/06/2024) Resolved Problems Problem Noted Date Diagnosed Date [...] 03/20/2015 GENERALIZED ANXIETY DIS 05/25/199702/23 LOC PRIM [id number] 05/25/199702/23 Dyspnea and respiratory abnormality 05/25/1997 03/20/2015 Overview (12/15/2016): ICD-10 update of inactive term Other chest pain 05/25/1997 03/20/2015 Mitral valve disorder 02/22/19852015 Arthritis of hip 03/20/2015 HTN, goal below 140/90 01/07 documented as of this encounter (statuses as of 03/06/2024) Immunizations Name Administration Dates Next Due COVID-19 mRNA, LNP-s, No Pre serve, 2-Dose Series ([employer]) 01/23/2021,05/01/2020,04/10/2020 Covid-19, Mrna, Lnp-s, Pf, B ivalent, [...] encounter Miscellaneous Notes * Telephone Encounter - Irena Mcnair DO - 03/06/2024 10:42 AM ESTSigned Prescriptions: Disp Refills LORazepam 1 MG Oral Tablet (Ativan) 60 Tab*0 Sig: TAKE 1 TABLET BY MOUTH TWICE A DAY NEEDED FOR ANXIETY Authorizing Provider: IRENA MCNAIR * Telephone Encounter - [place] Luciano [facility] - 03/03/2024 2:59 PM ESTPending Prescriptions: Disp Refills LORazepam 1 MG Oral Tablet [Pharmacy Med N*60 Tab*0 Sig: TAKE 1 TABLET BY MOUTH TWICE A DAY NEEDED FOR ANXIETY * Telephone Encounter - [place] Luciano [facility] - 03/03/2024 2:59 PM EST I have reviewed the patients controlled substance dispensing history in the Prescription Drug Monitoring Program in compliance with the [facility] regulations before prescribing a controlled substance. PDMP checked on 03/03/2024. Pending Prescriptions: Disp Refills LORazepam 1 MG Oral Tablet (Ativan) [Phar*60 Tab*0 Sig: TAKE 1 TABLET BY MOUTH TWICE A DAY NEEDED FOR ANXIETY Last Visit: Visit date not found (in office), Visit date not found (telemedicine) Next Visit: 05/17/2024 Date medication was last filled: 01/31/24 Date medication is due for refill: 02/29/24 Pharmacy: [id number] [address] [facility] Is this request for a controlled substance? Yes and Urine Drug Screen Not completed Toxicology results: No results found for this or any previous visit. Please approve if appropriate. ThanksVirginia Clinical Pharmacist [facility] Pharmacy Services ([facility]PS) [phone] 03/03/2024, 2:59 PM documented in this encounter Plan of Treatment Upcoming Encounters Date Type Department Care Team (Latest Contact Info) Description 03/21/2024 8:00 AM EST Hospital Encounter ENDO [facility], Endoscopy Room [facility] [address] [phone] Toñito Elena MD [address] [address] [address] 03/21/2024 8:00 AM EST - 03/21/2024 8:30 AM EST Surgery ENDO [facility], Endoscopy Room [facility] [address] [address] [phone] Toñito Elena MD [address] [address] [address] ESOPHAGOGASTRODUODENOSCOPY (EGD), FLEXIBLE, TRANSORAL, DIAGNOSTIC 05/17/2024 11:30 AM EDT [facility] [address] [place] [phone] Irena Mcnair DO [address] [address] 07/18/2024 10:30 AM EDT Office Visit Cardiology, [facility] [address] [place] [address] Esvin Mcnair DO [address] [place] [address] 08/08/2024 11:30 AM EDT Imaging Radiology [facility] [address] [place] [phone] 11/29/2024 11:00 AM EDT Nurse Only Ancillary Department, Andre Ramirez [address] [facility] [address] [place] [phone] Andre, Nurse Annual Wellness [address] [address] Scheduled Procedures Name Priority Associated Diagnoses Date/Ti [...] Diagnoses Diagnosis Depression with anxiety Dysthymic disorder Esophageal pain Other specified disorder of the esophagus documented in this encounter Care Teams Pest Control Service Sales Agent Relationship Specialty Start Date End Date Irena Mcnair DO PCP - General Family Medicine 08/18/17 documented as of this encounter
--- OUTSIDE RECORDS SUMMARY | 2024-05-06 12:24 | External Medical Summary | Summary of Care ---
Author Name Unknown Organization [facility] Address [address] [place] [address] Phone [phone] Care Team Providers Care Printed Circuit Board Pcb Draftsman Name Role Phone CarlosLucita jameson Primary Care Provider Reason for Visit * Reason Onset Date Comments Appointment 12/02/2023 Upper Endoscopy Encounter Details Date Type Department Care Team (Late st Contact Info) Description 12/02/2023 Telephone Gastroenterology, [place] [address] [place] [address] Specified, Zz No Resource [address] [place] [address] Appointment (Upper Endoscopy ) Allergies Active Allergy Reactions Criticality Noted Date Comments Acyclovir And Related Hives,Other (Pleas e comment) Low 07/10/2003 SOB Amoxicillin-Pot Clavulanate 07/22/2022 diarrhea Buspirone Hcl Edema airway High 05/25/1997 Codeine Nausea/vomiting,Othe r (Please comment) Low 05/26/2012 Patient states she passed out. Rosuvastatin 08/26/2021 Restless leg Salicylates Nausea/vomiting Low 05/25/1997 Nose Bleeds. Sulfa Antibiotics Nausea/vomiting Low 06/23/2002 documented as of this encounter (statuses as of 12/27/2023) Medications Medication Sig Dispensed Refills Start Date End Date Status fluticasone (FLONASE) 50 MCG/ACT nasal sprayIndications:Tin nitus of both ears,Dysfunction of Eustachian tube, bilateral,Chronic rhinitis Administer 2 Sprays into each nostril daily. 1 Inhaler 5 6 Active Acetaminophen 325 MG Oral Capsule Take by mouth 325 mg 4 times a day as needed . 2 Active Omeprazole 20 MG Oral Capsule Delayed Release (PriLOSEC) Take 1 Capsule by mouth in the morning and 1 Capsule before bedtime. 30 minutes before a meal. 180 Capsule 3 3 Active Meclizine HCl 12.5 MG Oral Tablet (Antivert)Indication s:Vertigo Take 1 Tablet by mouth 3 times a day as needed for Dizziness. 30 Tablet 1 4 Active Atorvastatin Calcium 40 MG Oral Tablet (Lipitor)Indications :Dyslipidemia, goal LDL below 100 TAKE 1 TABLET BY MOUTH EVERY DAY IN THE MORNING 90 Tablet 3 4 Active Metoprolol Succinate ER 25 MG Oral Tablet Extended Release 24 Hour (toPROL XL)Indications:PSVT (paroxysmal supraventricular tachycardia) (HCC),Palpitations,L VH (left ventricular hypertrophy),HTN, goal below 140/90,Nonrheumatic mitral valve regurgitation Take 1 Tablet by mouth in the morning. 90 Tablet 3 4 Active LORazepam 1 MG Oral Tablet (Ativan)Indications: Depression with anxiety TAKE 1 TABLET BY MOUTH TWICE A DAY NEEDED FOR ANXIETY 60 Tablet 4 12/22/19 24 Discontinued Sertraline HCl 50 MG Oral Tablet (Zoloft) Take 1 Tablet by mouth in the morning. 12/21/19 24 Discontinued documented as of this encounter (statuses as of 12/27/2023) Active Problems Problem Noted Date Diagnosed Date Ankylosing spondylitis of cervical region 2023 MALIK (generalized anxiety disorder) 07/29/2023 Laryngopharyngeal reflux disease 01/27/2023 Hypertensive heart disease without heart failure 01/27/2023 Type 2 diabetes mellitus with diabetic polyneuro evelyn 03/29/2019 Primary osteoarthritis involving multiple joints 05/26/2017 Neuropathy, idiopathic 07/07/2016 LVH (left ventricular hypertrophy) 06/22/2016 Overview: Borderline LVH HTN, goal below 150/90 01/08/2016 Palpitations 06/21/2015 Primary osteoarthritis of right knee 06/21/2015 Dyslipidemia, goal LDL below 100 03/20/2015 Depression with anxiety 03/20/2015 Personal history of malignant neoplasm of breast 03/20/2015 Localized primary osteoarthr itis of carpometacarpal joint of left thumb 03/20/2015 Carpal tunnel syndrome of left wrist 03/20/2015 Congenital nystagmus 03/20/2015 documented as of this encounter (statuses as of 12/27/2023) Resolved Problems Problem Noted Date Diagnosed Date Resolved Date Prediabetes 04/06/2017 04/05/2019 Overview: Per Prediabetes protocol #1 Calculus of gallbladder with acute cholecystitis without obstruction 10/09/20162017 S/P laparoscopic cholecystectomy 10/09/2016 12/20/2017 Generalized osteoarthritis of multiple sites 7 05/26/2017 Need for pneumococcal vaccination 03/20/2015 08/12/2016 Screen for colon cancer 03/20/201507/24 Chest pain 05/26/2012 08/12/2016 Dyslipidemia, goal to be determined 01/29/2009 03/20/2015 Overview: Per Lipid Taxonomy. ADVANCE DIRECTIVE INFORMATION 11/11/2006 03/20/2015 Overview: No, Advance Directive brochure given to patient. MAL ЕКАТЕРИНА BREAST UP-INNER 11/01/200207/24 Encounter for long-term (cur rent) use of medications 11/01/2002 03/20/2015 Overview: ICD-10 update of inactive term DENTURES 04/24/2002 08/12/2016 Reflux esophagitis 04/24/2002 6 OBESITY, UNSPECIFIED 04/24/2002 016 Mixed dyslipidemia 07/07/2000 9 Overview: Per Lipid Taxonomy. Palpitations 05/25/1997 03/20/2015 GENERALIZED ANXIETY DIS 05/25/199702/23 LOC PRIM [id number] 05/25/199702/23 Dyspnea and respiratory abnormality 05/25/1997 03/20/2015 Overview: ICD-10 update of inactive term Other chest pain 05/25/1997 03/20/2015 Mitral valve disorder 02/22/19852015 Arthritis of hip 03/20/2015 HTN, goal below 140/90 01/07 documented as of this encounter (statuses as of 12/27/2023) Immunizations Name Administration Dates Next Due COVID-19 mRNA, LNP-s, No Pre serve, 2-Dose Series ([employer]) 01/23/2021,05/01/2020,04/10/2020 Covid-19, Mrna, Lnp-s, Pf, B ivalent, [...] No 11/24/2023 Does the household have a [facility] source [facility] income? (Household - for ages [...] ages 0-17 years) Not on file 11/24/2023 Sex and Gender Information Value Date Recorded Sex Assigned at Female 06/20/2018 12:01 PM EDT Gender Identity Female 06/20/2018 12:01 PM EDT Sexual Orientation Straight 06/20/2018 12 :01 PM EDT Job Start Date Occupation Industry Not on file Not on file Not on file documented as of this encounter Miscellaneous Notes * Telephone Encounter - Olimpia Kwon OSA - 12/27/2023 3:30 PM EST TREASURE Lau 12/27/2023 3:30 PM * Telephone Encounter - Olimpia Kwon OSA - 12/07/2023 4:26 PM EDT lmm * Telephone Encounter - Chandni Henderson OSA - 12/02/2023 2:30 PM EDT Order UPPER ENDOSCOPY GI REFERRAL OP [[id number]] (Order [id number]) Guillermina Clinton 12/02/2023 12:10 PM Office Visit Description: 72 year old female Provider: Lucita Payan DO Department: [facility] Order Information Date and Time Department Ordering/Authorizing 12/02/2023 12:31 PM [facility] Lucita Milian DO Order Providers Authorizing Provider Encounter Provider ([id number]) Lucita Payan DO ([id number]) Lucita Payan DO Priority and Order Details Priority Class Within 10 days (routine) Referral Quantity Ordering Quantity 1 Collection Information Visit Disposition Check-out Note Scope pls arrange EGD, and needs to see orthopedics for her knee OA Comments Upper Endoscopy ASGE Guidelines Upper abdominal symptoms that persist despite an appropriate trial of therapy ADDITIONAL INFORMATION 1. Is the patient on Coumadin? No 2. Is the patient on Pradaxa? No Order Questions Question Answer Referral Priority Within 10 days (routine) Where should this appointment be scheduled? [facility] Referral (Authorized) ID: [id number] Created on: 12/02/2023 Referred by Referred to Lucita Payan DO Gastroenterology Reason: Ancillary Services Required Priority: Within 10 days (routine) Type: Ancillary Services Visits Requested: 999 Decision Date: 12/02/2023 Start Date: 12/02/2023 Related Appointments None Associated Diagnoses Epigastric pain [R10.13] - Primary Encounter View Encounter Reprint Requisition UPPER ENDOSCOPY GI REFERRAL OP (Order #[id number]) on 12/02/23 Detailed Information Priority and Order Details Reference Links Neighborly Acct Guarantor Acct Type [id number] GUILLERMINA CLINTON Personal/Family [1] Service Location Name Address [address] [phone] Currently Active Insurance Payor Plan Subscriber Member ID GHYamil FONSECA [employer] GOLD PREFERRED ENHANCED -[place] GUILLERMINA CLINTON [id number] documented in this encounter Plan of Treatment Upcoming Encounters Date Type Department Care Team (Latest Contact Info) Description 01/06/2024 3:30 PM EST Imaging Radiology, [place] [id number] [facility] [place] [address] 05/17/2024 11:30 AM EDT Office Visit [facility] [address] [facility] [place] [address] Lucita Payan DO [address] [facility] [address] 05/31/2024 11:15 AM EDT Hospital Encounter ENDO [facility], Endoscopy Room [facility] [address] [facility] [place] [phone] Olga Grubbs MD [address] [place] [address] 05/31/2024 11:15 AM EDT - 05/31/2024 11:45 AM EDT Surgery ENDO [facility], Endoscopy Room [facility] [address] [facility] [place] [phone] Olga Grubbs MD [address] [place] [address] ESOPHAGOGASTRODUODENOSCOPY (EGD), FLEXIBLE, TRANSORAL, DIAGNOSTIC 07/18/2024 10:30 AM EDT Office [facility], [facility] [place] [address] Esvin Payan DO [address] [facility] [place] [address] 11/29/2024 11:00 AM EDT Nurse Only Ancillary Department, [place] [address] [place] [address] Andre, Nurse Annual Wellness [address] [facility] [place] [address] Scheduled Procedures Name Priority Associated Diagnoses Date/Ti me ESOPHAGOGASTRODUODENOSCOPY ( EGD), FLEXIBLE, TRANSORAL, DIAGNOSTIC Esophageal pain 05/31/2024 11:15 AM EDT COLONOSCOPY FLEXIBLE PROXIMA L DIAGNOSTIC Recall Colon cancer screening Health Maintenance Due Date Last Done Comments DXA Scan 04/30/2020 05/01/2015 COVID-19 Vaccine ( season) 2023 12/30/2021, 01/23/2021, 12/21/2020, Additional history exists Diabetic Eye Exam 01/01/2024 07/23/2022, , 01/12/2019 Postponed from 07/24/2023 (Patient Declined After Education) Diabetic Foot Exam 01/01/2024 11/19/2022, 0 09/03/2021, 08/30/2020, Additional history exists Postponed from 11/20/2023 (Patient Declined After Education) Hepatitis C Screening 01/01/2024 Postpo omega from 1966 (Patient Declined After Education) Zoster Vaccines (1 of 2) 01/01/2024 Pos tponed from 1998 (Patient Declined After Education) HbA1c 01/28/2024 07/29/2023, 12/0 07/2022, 07/22/2022, Additional [...] filedocumented as of this encounter Care Teams Printed Circuit Board Pcb Draftsman Relationship Specialty Start Date End Date Lucita Payan DO [address] [place] [address] PCP - General Family Medicine 08/18/17 documented as of this encounter
--- OUTSIDE RECORDS SUMMARY | 2024-05-06 12:24 | External Medical Summary | Summary of Care ---
Author Name Unknown Organization [facility] Address [address] [place] [address] Phone [phone] Care Team Providers Care Senior Field Service Engineer Name Role Phone Irena Mcnair DO Primary Care Provider Reason for Visit * Reason Comments eRx-Medication Refill Encounter Details Date Type Department Care Team (Late st Contact Info) Description 12/19/2023 Refill [place] [address] [place] [address] Irena Mcnair DO [address] [place] [address] Depression with anxiety Allergies Active Allergy [...] as of this encounter (statuses as of 12/22/2023) Medications Medication Sig Dispensed Refills Start Date [...] the morning. 90 Tablet 3 4 Active Sertraline HCl 50 MG Oral Tablet (Zoloft) TAKE 1 TABLET BY MOUTH EVERY DAY IN THE MORNING 90 Tablet 3 4 Active LORazepam 1 MG Oral Tablet (Ativan)Indications: Depression with anxiety TAKE 1 TABLET BY MOUTH TWICE A DAY NEEDED FOR ANXIETY 60 Tablet 4 Active LORazepam 1 MG Oral Tablet (Ativan)Indications: Depression with anxiety TAKE 1 TABLET BY MOUTH TWICE A DAY NEEDED FOR ANXIETY 60 Tablet 4 12/22/19 24 Discontinued Sertraline HCl 50 MG Oral Tablet (Zoloft) Take 1 Tablet by mouth in the morning. 12/21/19 24 Discontinued documented as of this encounter (statuses as of 12/22/2023) Active Problems Problem Noted Date Diagnosed Date [...] as of this encounter (statuses as of 12/22/2023) Resolved Problems Problem Noted Date Diagnosed Date [...] 03/20/2015 GENERALIZED ANXIETY DIS 05/25/199702/23 LOC PRIM [id number] 05/25/199702/23 Dyspnea and respiratory abnormality 05/25/1997 03/20/2015 Overview: ICD-10 update of inactive term Other chest pain 05/25/1997 03/20/2015 Mitral valve disorder 02/22/19852015 Arthritis of hip 03/20/2015 HTN, goal below 140/90 01/07 documented as of this encounter (statuses as of 12/22/2023) Immunizations Name Administration Dates Next Due COVID-19 mRNA, LNP-s, No Pre serve, 2-Dose Series ([employer]) 01/23/2021,05/01/2020,04/10/2020 Covid-19, Mrna, Lnp-s, Pf, B ivalent, 30 Mcg, IM, 12 yrs and above ([employer]) 12/30/2021 Pneumococcal Conjugate Vacc, 13 Valent (Prevnar) [...] No 11/24/2023 Does the household have a [facility] hospit[facility] source of income? (Household - for [...] Telephone Encounter - Irena Mcnair DO - 12/22/2023 2:36 PM EDTSigned Prescriptions: Disp Refills Sertraline HCl 50 MG Oral Tablet (Zoloft) 90 Tab*3 Sig: TAKE 1 TABLET BY MOUTH EVERY DAY IN THE MORNING Authorizing Provider: IRENA MCNAIR Ordering User: LUPE CASTILLO LORazepam 1 MG Oral Tablet (Ativan) 60 Tab*0 Sig: TAKE 1 TABLET BY MOUTH TWICE A DAY NEEDED FOR ANXIETY Authorizing Provider: RAVI MCNAIR * Telephone Encounter - Interface, [facility] Inbound - 12/22/2023 11:13 AM EDT Pending Prescriptions: Disp Refills LORazepam 1 MG Oral Tablet (Ativan) 60 Tab*0 Sig: TAKE 1 TABLET BY MOUTH TWICE A DAY NEEDED FOR ANXIETY Signed Prescriptions: Disp Refills Sertraline HCl 50 MG Oral Tablet (Zoloft) 90 Tab*3 Sig: TAKE 1 TABLET BY MOUTH EVERY DAY IN THE MORNING Authorizing Provider: IRENA MCNAIR Ordering User: LUPE CASTILLO * Telephone Encounter - Lupe Castillo [facility] - 12/21/2023 9:50 AM EDT Pending Prescriptions: Disp Refills LORazepam 1 MG Oral Tablet (Ativan) 60 Tab*0 Sig: TAKE 1 TABLET BY MOUTH TWICE A DAY NEEDED FOR ANXIETY Signed Prescriptions: Disp Refills Sertraline HCl 50 MG Oral Tablet (Zoloft) 90 Tab*3 Sig: TAKE 1 TABLET BY MOUTH EVERY DAY IN THE MORNING Authorizing Provider: IRENA MCNAIR Ordering User: LUPE CASTILLO * Telephone Encounter - Lupe Castillo [facility] - 12/21/2023 9:48 AM EDT I have reviewed the patients controlled substance dispensing history in the Prescription Drug Monitoring Program in compliance with the [facility] regulations before prescribing a controlled substance. PDMP checked on 12/21/2023. Pending Prescriptions: Disp Refills LORazepam 1 MG Oral Tablet (Ativan) [Phar*60 Tab*0 Sig: TAKE 1 TABLET BY MOUTH TWICE A DAY NEEDED FOR ANXIETY Last Visit: 12/02/2023 (in office), 01/24/2020 (telemedicine) Next Visit: 05/17/2024 Date medication was last filled: 11/18/23 Date medication is due for refill: 12/17/23 [id number] [address] [facility] Is this request for a controlled substance? Yes and Urine Drug Screen Not completed Toxicology results: No results found for this or any previous visit. Please approve if appropriate. Thank you, Lupe Castillo, PharmD Clinical Pharmacist Centralized Clinical Pharmacy Services (CCPS) [phone] 12/21/2023, 9:49 AM documented in this encounter Plan of Treatment Upcoming Encounters Date Type Department Care Team (Late st Contact Info) Description 12/27/2023 9:30 AM EST Office Visit Orthopaedics [facility] [address] [place] [address] Keyon Teran PA-C [address] [place] [address] 01/06/2024 3:30 PM EST Imaging Radiology, [place] [phone] [facility], [place] [address] 05/17/2024 11:30 AM EDT Office Visit [facility] Practice, [place] [address] [facility] [phone] Irena Mcnair, DO [address] [facility] [address] 07/18/2024 10:30 AM EDT Office Visit Cardiology, [facility] [address] [facility] [place] [address] Esvin Mcnair DO [address] [facility] [address] 11/29/2024 11:00 AM EDT Nurse Only Ancillary Department, [place] [address] [facility] [address] [place], Nurse Annual Wellness [address] [facility] [address] Scheduled Procedures Name Priority Associated Diagnoses Date/Ti me COLONOSCOPY FLEXIBLE PROXIMAL DIAGNOSTIC Recall Colon cancer [...] disorder documented in this encounter Care Teams Senior Field Service Engineer Relationship Specialty Start Date End Date Irena Mcnair DO [address] [facility] [place] [address] PCP - General Family Medicine 08/18/17 documented as of this encounter
--- OUTSIDE RECORDS SUMMARY | 2024-05-06 12:24 | External Medical Summary | Summary of Care ---
Author Name Unknown Organization [facility] Address [address] [place] [address] Phone [phone] Care Team Providers Care Fiber Analyst Name Role Phone Irena Payan DO Primary Care Provider Reason for Visit * Reason Onset Date Comments eRx-Medication Refill Status Check 01/23/2024 Encounter Details Date Type Department Care Team (Late st Contact Info) Description 01/23/[address] [address] Irena Payan, DO [address] [facility] [address] Depression with anxiety Allergies Active [...] 01/31/2024) Medications fluticasone (FLONASE) 50 MCG/ACT nasal sprayIndications:Ti nnitus of both ears,Dysfunction of Eustachian tube, bilateral,Chronic rhinitis Administer 2 Sprays into each nostril daily. 1 Inhaler 5 016 Active Acetaminophen 325 MG Oral Capsule Take by mouth 325 mg 4 times a day as needed . 022 Active Omeprazole 20 MG Oral Capsule Delayed Release (PriLOSEC) Take 1 Capsule by mouth in the morning and 1 Capsule before bedtime. 30 minutes before a meal. 180 Capsule 3 023 Active Meclizine HCl 12.5 MG Oral Tablet [...] 24 Hour (toPROL XL)Indications:PSVT (paroxysmal supraventricular tachycardia) ([facility]),Palpitations, LVH (left ventricular hypertrophy),HTN, goal below 140/90,Nonrheumatic [...] Apply to affected area 100 g 2 Active LORazepam 1 MG Oral Tablet (Ativan)Indications :Depression with anxiety TAKE 1 TABLET BY MOUTH TWICE A DAY NEEDED FOR ANXIETY 60 Tablet Active LORazepam 1 MG Oral Tablet (Ativan)Indications :Depression with anxiety TAKE 1 TABLET BY MOUTH TWICE A DAY NEEDED FOR ANXIETY 60 Tablet 024 2023 Discontinued documented as of this encounter (statuses [...] 03/20/2015 GENERALIZED ANXIETY DIS 05/25/199702/23 LOC PRIM [id number] 05/25/199702/23 Dyspnea and respiratory abnormality 05/25/1997 03/20/2015 Overview (12/15/2016): ICD-10 update of inactive term Other chest pain 05/25/1997 03/20/2015 Mitral valve disorder 02/22/19852015 Arthritis of hip 03/20/2015 HTN, goal below 140/90 01/07 documented as of this encounter (statuses as of 01/31/2024) Immunizations Name Administration Dates Next Due COVID-19 mRNA, LNP-s, No Pre serve, 2-Dose Series ([employer]) 01/23/2021,05/01/2020,04/10/2020 Covid-19, Mrna, Lnp-s, Pf, B ivalent, [...] Miscellaneous Notes * Telephone Encounter - Irena Payan DO - 01/31/2024 12:36 PM ESTSigned Prescriptions: Disp Refills LORazepam 1 MG Oral Tablet (Ativan) 60 Tab*0 Sig: TAKE 1 TABLET BY MOUTH TWICE A DAY NEEDED FOR ANXIETYAuthorizing Provider: IRENA PAYAN * Telephone Encounter - Irena Payan DO - 01/31/2024 12:36 PM ESTSigned Prescriptions: Disp Refills LORazepam 1 MG Oral Tablet (Ativan) 60 Tab*0 Sig: TAKE 1 TABLET BY MOUTH TWICE A DAY NEEDED FOR ANXIETY Authorizing Provider: IRENA PAYAN * Telephone Encounter - Mariola Rush CPhT - 01/31/2024 11:18 AM EST Pt calling to check on status of LORazepam 1 MG Oral Tablet (Ativan) . Caller can be reached at [phone]. Thank you, Summer Rush CPhT Radiologic Electronic Specialist III [facility] [address] [place] [address], [address] 38-42 * Telephone Encounter - Constance Dennis LPN - 01/31/2024 9:29 AM EST Patient was asking for an update on the status of her refill. Thank you, Constance Dennis LPN Care Gaps Department * Telephone Encounter - Interface, [facility] Inbound - 01/26/2024 11:17 AM EST Pending Prescriptions: Disp Refills LORazepam 1 MG Oral Tablet [Pharmacy Med N*60 Tab*0 Sig: TAKE 1 TABLET BY MOUTH TWICE A DAY NEEDED FOR ANXIETY * Telephone Encounter - Cindy Webb associate professor of theatre - 01/26/2024 10:47 AM EST Pt requesting high priority. Pt calling to check on status of LORazepam 1 MG Oral Tablet (Ativan) .Caller can be reached at [phone] . Thank you, Cindy Webb, Drop Wire Stringer Drop Wire Stringer I [facility]) 01/26/2024,10:47 AM * Telephone Encounter - Shalonda Grajeda [facility] - 01/25/2024 7:38 AM EST Pending Prescriptions: Disp Refills LORazepam 1 MG Oral Tablet [Pharmacy Med N*60 Tab*0 Sig: TAKE 1 TABLET BY MOUTH TWICE A DAY NEEDED FOR ANXIETY * Telephone Encounter - Shalonda Grajeda RPh - 01/25/2024 7:38 AM EST I have reviewed the patients controlled substance dispensing history in the Prescription Drug Monitoring Program in compliance with the [facility] regulations before prescribing a controlled substance. PDMP checked on 01/25/2024. Pending Prescriptions: Disp Refills LORazepam 1 MG Oral Tablet (Ativan) [Phar*60 Tab*0 Sig: TAKE 1 TABLET BY MOUTH TWICE A DAY NEEDED FOR ANXIETY Last Visit: 12/02/2023 (in office), 01/24/2020 (telemedicine) Next Visit: Visit date not found Date medication was last filled: 12/21 Date medication is due for refill: 01/19 Pharmacy: [id number] [address] [facility] Is this request for a controlled substance? Yes and Urine Drug Screen Not completed Toxicology results: No results found for this or any previous visit. Please approve if appropriate. Thank you, Shalonda Grajeda, PharmD. Clinical Pharmacist [facility]) 01/25/2024, 7:38 AM documented in this encounter Plan of Treatment Upcoming Encounters Date Type Department Care Team (Latest Contact Info) Description 05/17/2024 11:30 AM EDT Office Visit [facility] Elicia Loya [address] [place] [address] [phone] Irena Payan, [address] [place] [address] 05/31/2024 11:15 AM EDT Hospital Encounter ENDO [facility], Endoscopy Room [facility] 132 [facility] [place] [address] Olga Grubbs MD [address] [place] [address] 05/31/2024 11:15 AM EDT - 05/31/2024 11:45 AM EDT Surgery ENDO [facility], Endoscopy Room [facility] [address] [place] [phone] Olga Grubbs MD [address] [place] [address] ESOPHAGOGASTRODUODENOSCOPY (EGD), FLEXIBLE, TRANSORAL, DIAGNOSTIC 07/18/2024 10:30 AM EDT Office Visit Cardiology, [facility] [address] [place] [address] Esvin Payan DO [address] [place] [address] 08/08/2024 11:30 AM EDT Imaging Radiology, [facility] [address] [facility] [address] 11/29/2024 11:00 AM EDT Nurse Only Ancillary Department, Electra Ionlinsey 226 [facility] [place] [phone] Andre, Nurse Annual Wellness [address] [facility] [place] [address] Scheduled Procedures Name Priority Associated Diagnoses Date/Ti [...] esophagus documented in this encounter Care Teams Fiber Analyst Relationship Specialty Start Date End Date Irena Payan DO [address] [place] [address] PCP - General Family Medicine 08/18/17 documented as of this encounter
--- OUTSIDE RECORDS SUMMARY | 2024-05-06 12:24 | External Medical Summary | Summary of Care ---
Author Name Unknown Organization [facility] Address [address] [facility] [address] Phone [phone] Care Team Providers Care Data Processing Mechanic Name Role Phone CarlosLucita jameson Maya CHAMBERLAIN Primary Care Provider Encounter Details Date Type Department Care Team (Late st Contact Info) Description 02/11/2024 Telephone Family Medicine [address] [place] [address] Alonso Muse [address] [place] [address] Allergies Active Allergy Reactions Criticality Noted Date Comments Acyclovir And Related Hives,Other (Pleas e comment) Low 07/10/2003 SOB Amoxicillin-Pot Clavulanate 07/22/2022 diarrhea Buspirone Hcl Edema airway High 05/25/1997 Codeine Nausea/vomiting,Othe r (Please comment) Low 05/26/2012 Patient states she passed out. Rosuvastatin 08/26/2021 Restless leg Salicylates Nausea/vomiting Low 05/25/1997 Nose Bleeds. Sulfa Antibiotics Nausea/vomiting Low 06/23/2002 documented as of this encounter (statuses as of 02/11/2024) Medications fluticasone (FLONASE) 50 MCG/ACT nasal sprayIndications:Tin [...] area 100 g 2 12/27/19 24 Active LORazepam 1 MG Oral Tablet (Ativan)Indications: Depression with anxiety TAKE 1 TABLET BY MOUTH TWICE A DAY NEEDED FOR ANXIETY 60 Tablet 01/31/20 24 Active Omeprazole 20 MG Oral Capsule Delayed Release (PriLOSEC) TAKE 1 CAPSULE BY MOUTH IN THE MORNING AND 1 CAPSULE BEFORE BEDTIME. 30 MINUTES BEFORE A MEAL. 180 Capsule 3 02/07/20 24 Active documented as of this encounter (statuses as of 02/11/2024) Active Problems Problem Noted Date Diagnosed Date [...] as of this encounter (statuses as of 02/11/2024) Resolved Problems Problem Noted Date Diagnosed Date [...] 03/20/2015 GENERALIZED ANXIETY DIS 05/25/199702/23 LOC PRIM [id number] 05/25/199702/23 Dyspnea and respiratory abnormality 05/25/1997 03/20/2015 Overview (12/15/2016): ICD-10 update of inactive term Other chest pain 05/25/1997 03/20/2015 Mitral valve disorder 02/22/19852015 Arthritis of hip 03/20/2015 HTN, goal below 140/90 01/07 documented as of this encounter (statuses as of 02/11/2024) Immunizations Name Administration Dates Next Due COVID-19 mRNA, LNP-s, No Pre serve, 2-Dose Series ([employer]) 01/23/2021,05/01/2020,04/10/2020 Covid-19, Mrna, Lnp-s, Pf, B ivalent, 30 Mcg, IM, 12 yrs and above ([employer]) 12/30/2021 Pneumococcal Conjugate Vacc, 13 Valent (Prevnar) [...] No 11/24/2023 Does the household have a rustlar source of income? (Household - for ages [...] encounter Miscellaneous Notes * Telephone Encounter - Kathy Christiansen LPN - 02/11/2024 11:34 AM EST LM for pt to call. * Telephone Encounter - Alonso Muse CRNP - 02/11/2024 9:33 AM EST Can you please call the patient and let her know that her x-ray looked normal there were no fractures. If she wants I can send some prednisone for her to try to get the pain/swelling better. If persistent then can put a podiatry referral in . Thanks! documented in this encounter Plan of Treatment Upcoming Encounters Date Type Department Care Team (Latest Contact Info) Description 05/17/2024 11:30 AM EDT Office Visit [facility] 226 [facility] [place] [phone] Lucita Payan DO [address] [place] [address] 05/31/2024 11:15 AM EDT Hospital Encounter ENDO [facility], Endoscopy Room [facility] 132 [facility] [place] [phone] Olga Grubbs MD [address] [place] [address] 05/31/2024 11:15 AM EDT - 05/31/2024 11:45 AM EDT Surgery ENDO [facility], Endoscopy Room [facility] [address] [place] [phone] Olga Grubbs MD [address] [place] [address] ESOPHAGOGASTRODUODENOSCOPY (EGD), FLEXIBLE, TRANSORAL, DIAGNOSTIC 07/18/2024 10:30 AM EDT Office Visit Cardiology, [facility] [address] [place] [address] Esvin Payan, DO [address] [place] [address] 08/08/2024 11:30 AM EDT Imaging Radiology [facility] [address] [place] [phone] 11/29/2024 11:00 AM EDT Nurse Only Ancillary Department, Andre Hernandez [address] [phone] Andre, Nurse Annual Wellness [address] [place] [address] [address] Scheduled Procedures Name Priority Associated Diagnoses Date/Ti [...] filedocumented as of this encounter Care Teams Data Processing Mechanic Relationship Specialty Start Date End Date Lucita Payan DO PCP - General Family Medicine 08/18/17 documented as of this encounter
--- OUTSIDE RECORDS SUMMARY | 2024-05-06 12:24 | External Medical Summary | Summary of Care ---
Author Name Unknown Organization [facility] Address [address] [place] [address] Phone [phone] Care Team Providers Care Impress Associate Name Role Phone Irena Mcnair DO Primary Care Provider Reason for Visit * Reason Comments eRx-Medication Refill Encounter Details Date Type Department Care Team (Late st Contact Info) Description 02/06/2024 Refill [facility] [address] [place] [address] Irena Mcnair DO [address] [place] [address] Allergies Active Allergy Reactions Criticality Noted Date Comments Acyclovir And Related Hives,Other (Pleas e comment) Low 07/10/2003 SOB Amoxicillin-Pot Clavulanate 07/22/2022 diarrhea Buspirone Hcl Edema airway High 05/25/1997 Codeine Nausea/vomiting,Othe r (Please comment) Low 05/26/2012 Patient states she passed out. Rosuvastatin 08/26/2021 Restless leg Salicylates Nausea/vomiting Low 05/25/1997 Nose Bleeds. Sulfa Antibiotics Nausea/vomiting Low 06/23/2002 documented as of this encounter (statuses as of 02/07/2024) Medications fluticasone (FLONASE) 50 MCG/ACT nasal sprayIndications:Ti [...] affected area 100 g 2 024 Active LORazepam 1 MG Oral Tablet (Ativan)Indications :Depression with anxiety TAKE 1 TABLET BY MOUTH TWICE A DAY NEEDED FOR ANXIETY 60 Tablet 024 Active Omeprazole 20 MG Oral Capsule Delayed Release (PriLOSEC) TAKE 1 CAPSULE BY MOUTH IN THE MORNING AND 1 CAPSULE BEFORE BEDTIME. 30 MINUTES BEFORE A MEAL. 180 Capsule 3 024 Active Omeprazole 20 MG Oral Capsule Delayed Release (PriLOSEC) Take 1 Capsule by mouth in the morning and 1 Capsule before bedtime. 30 minutes before a meal. 180 Capsule 3 023 2023 Discontinued documented as of this encounter (statuses as of 02/07/2024) Active Problems Problem Noted Date Diagnosed Date [...] as of this encounter (statuses as of 02/07/2024) Resolved Problems Problem Noted Date Diagnosed Date [...] 03/20/2015 GENERALIZED ANXIETY DIS 05/25/199702/23 LOC PRIM [id number] 05/25/199702/23 Dyspnea and respiratory abnormality 05/25/1997 03/20/2015 Overview (12/15/2016): ICD-10 update of inactive term Other chest pain 05/25/1997 03/20/2015 Mitral valve disorder 02/22/19852015 Arthritis of hip 03/20/2015 HTN, goal below 140/90 01/07 documented as of this encounter (statuses as of 02/07/2024) Immunizations Name Administration Dates Next Due COVID-19 mRNA, LNP-s, No Pre serve, 2-Dose Series ([employer]) 01/23/2021,05/01/2020,04/10/2020 Covid-19, Mrna, Lnp-s, Pf, B ivalent, [...] encounter Miscellaneous Notes * Telephone Encounter - Jo Ann Hamlin [facility] - 02/07/2024 2:39 PM EST Signed Prescriptions: Disp Refills Omeprazole 20 MG Oral Capsule Delayed Rele*180 Ca*3 Sig: TAKE 1 CAPSULE BY MOUTH IN THE MORNING AND 1 CAPSULE BEFORE BEDTIME. 30 MINUTES BEFORE A MEAL.Authorizing Provider: IRENA MCNAIR User: JO ANN HAMLIN documented in this encounter Plan of Treatment Upcoming Encounters Date Type Department Care Team (Latest Contact Info) Description 05/17/2024 11:30 AM EDT Office Visit [facility] 226 [facility] [place] [phone] Irena Mcnair DO 226 [facility] [place] [address] 05/31/2024 11:15 AM EDT Hospital Encounter ENDO [facility], Endoscopy Room [facility] 132 [facility] [place] [phone] Olga Grubbs MD [address] [place] [id number] 05/31/2024 11:15 AM EDT - 05/31/2024 11:45 AM EDT Surgery ENDO [facility], Endoscopy Room [facility] [address] [place] [phone] Olga Grubbs MD [address] [place] [address] ESOPHAGOGASTRODUODENOSCOPY (EGD), FLEXIBLE, TRANSORAL, DIAGNOSTIC 07/18/2024 10:30 AM EDT Office Visit Cardiology, [facility] [address] [facility] [place] [address] Esvin Mcnair, [address] [place] [address] 08/08/2024 11:30 AM EDT Imaging Radiology [facility] [address] [place] [phone] 11/29/2024 11:00 AM EDT Nurse Only Ancillary Department, [facility] [address] [facility] [place] [phone] Andre, Nurse Annual Wellness [address] [facility] [place] [address] Scheduled Procedures Name Priority Associated Diagnoses Date/Ti [...] filedocumented as of this encounter Care Teams Impress Associate Relationship Specialty Start Date End Date Irena Mcnair DO [address] [place] [address] PCP - General Family Medicine 08/18/17 documented as of this encounter
--- OUTSIDE RECORDS SUMMARY | 2024-05-06 12:24 | External Medical Summary | Summary of Care ---
Author Name Unknown Organization [facility] Address [address] [place] [address] Phone [phone] Care Team Providers Care Php Website Developer Name Role Phone TooLucita britt Maya CHAMBERLAIN Primary Care Provider Reason for Visit * Reason Onset Date Comments Test Results 02/11/2024 Encounter Details Date Type Department Care Team (Late st Contact Info) Description 02/11/2024 Telephone Family Medicine [address] [address] Alonso Muse [address] [place] [address] Test Results Allergies Active Allergy Reactions Criticality Noted Date [...] 03/20/2015 GENERALIZED ANXIETY DIS 05/25/199702/23 LOC PRIM [id number] 05/25/199702/23 Dyspnea and respiratory abnormality 05/25/1997 03/20/2015 Overview (12/15/2016): ICD-10 update of inactive term Other chest pain 05/25/1997 03/20/2015 Mitral valve disorder 02/22/19852015 Arthritis of hip 03/20/2015 HTN, goal below 140/90 01/07 documented as of this encounter (statuses as of 02/11/2024) Immunizations Name Administration Dates Next Due COVID-19 mRNA, LNP-s, No Pre serve, 2-Dose Series ([employer]) 01/23/2021,05/01/2020,04/10/2020 Covid-19, Mrna, Lnp-s, Pf, B ivalent, 30 Mcg, IM, 12 yrs and above ([employer]) 12/30/2021 Pneumococcal Conjugate Vacc, 13 Valent (Prevnar) [...] encounter Miscellaneous Notes * Telephone Encounter - Britany Brambila LPN - 02/11/2024 3:02 PM EST Patient is aware and verbalizes understanding. She is going to think about the prednisone for now, she will call back if she decides she wants it or the podiatry referral . * Telephone Encounter - Kathy Christiansen LPN [...] Description 05/17/2024 11:30 AM EDT [facility] [address] [place] [address] [phone] Lucita Payan DO [address] [place] [address] 05/31/2024 11:15 AM EDT Hospital Encounter ENDO [facility], Endoscopy Room [facility] [address] [place] [phone] Olga Grubbs MD [address] [place] [phone] 05/31/2024 11:15 AM EDT - 05/31/2024 11:45 AM EDT Surgery ENDO [facility], Endoscopy Room [facility] [address] [place] [phone] Olga Grubbs MD [address] [place] [address] ESOPHAGOGASTRODUODENOSCOPY (EGD), FLEXIBLE, TRANSORAL, DIAGNOSTIC 07/18/2024 10:30 AM EDT Office Visit Cardiology, [facility] [address] [place] [address] Esvin Payan DO [address] [place] [address] 08/08/2024 11:30 AM EDT Imaging Radiology [facility] [address] [place] [phone] 11/29/2024 11:00 AM EDT Nurse Only Ancillary Department, Bledsoecole Ramirez [address] [facility] [place] [phone] Andre, Nurse Annual Wellness [address] [facility] [place] [address] Scheduled Procedures Name Priority Associated Diagnoses Date/Ti [...] filedocumented as of this encounter Care Teams Php Website Developer Relationship Specialty Start Date End Date Lucita Payan DO PCP - General Family Medicine 08/18/17 documented as of this encounter
--- OUTSIDE RECORDS SUMMARY | 2024-05-06 12:24 | External Medical Summary | Summary of Care ---
Author Name Unknown Organization [facility] Address [address] [facility] [address] Phone [phone] Care Team Providers Care Artificial Glass Eye Maker Name Role Phone CarlosLucita jameson Maya CHAMBERLAIN Primary Care Provider [phone] Encounter Details Date Type Department Care Team (Late st Contact Info) Description 02/11/2024 Telephone Family Medicine [address] [place] [address] Alonso Muse [address] [place] [address] Allergies Active Allergy [...] 03/20/2015 GENERALIZED ANXIETY DIS 05/25/199702/23 LOC PRIM [id number] 05/25/199702/23 Dyspnea and respiratory abnormality 05/25/1997 03/20/2015 Overview (12/15/2016): ICD-10 update of inactive term Other chest pain 05/25/1997 03/20/2015 Mitral valve disorder 02/22/19852015 Arthritis of hip 03/20/2015 HTN, goal below 140/90 01/07 documented as of this encounter (statuses as of 02/11/2024) Immunizations Name Administration Dates Next Due COVID-19 mRNA, LNP-s, No Pre serve, 2-Dose Series ([employer]) 01/23/2021,05/01/2020,04/10/2020 Covid-19, Mrna, Lnp-s, Pf, B ivalent, 30 Mcg, IM, 12 yrs and above ([employer]) 12/30/2021 Pneumococcal Conjugate Vacc, 13 Valent (Prevnar) [...] 11/24/2023 Does the household have a [facility] medical center[facility] source of income? (Household - [...] encounter Miscellaneous Notes * Telephone Encounter - Alonso Muse CRNP [...] AM EDT [facility] [address] [facility] [place] [phone] Lucita Payan DO [address] [place] [address] 05/31/2024 11:15 AM EDT Hospital Encounter ENDO [facility], Endoscopy Room [facility] [address] [place] [phone] Olga Grubbs MD [address] [place] [address] 05/31/2024 11:15 AM EDT - 05/31/2024 11:45 AM EDT Surgery ENDO [facility], Endoscopy Room [facility] [address] [place] [phone] Olga Grubbs MD [address] [place] [address] ESOPHAGOGASTRODUODENOSCOPY (EGD), FLEXIBLE, TRANSORAL, DIAGNOSTIC 07/18/2024 10:30 AM EDT Office Visit Cardiology, [facility] [address] [place] [address] Esvin Payan DO [address] [place] [address] 08/08/2024 11:30 AM EDT Imaging Radiology [facility] [address] [place] [phone] 11/29/2024 11:00 AM EDT Nurse Only Ancillary Department, Andre Hernandez [address] [place] [phone] Andre, Nurse Annual Wellness [facility] [place] [phone] Scheduled Procedures Name Priority Associated Diagnoses Date/Ti [...] filedocumented as of this encounter Care Teams Artificial Glass Eye Maker Relationship Specialty Start Date End Date Lucita Payan DO PCP - General Family Medicine 08/18/17 documented as of this encounter
--- OUTSIDE RECORDS SUMMARY | 2024-05-06 12:24 | External Medical Summary | Summary of Care ---
Author Name Unknown Organization [facility] Address [address] [place] [address] Phone [phone] Care Team Providers Care Balloon Pilot Name Role Phone CarlosLucita jameson Maya CHAMBERLAIN Primary Care Provider Reason for Visit * Reason Comments Acute Encounter Details Date Type Department Care Team (Late st Contact Info) Description 02/08/2024 1:40 PM EST Office Visit Family Medicine [address] [phone] Alonso Muse [address] [place] [address] Toe pain, left* Allergies Active Allergy Reactions Criticality Noted Date Comments Acyclovir And Related Hives,Other (Pleas e comment) Low 07/10/2003 SOB Amoxicillin-Pot Clavulanate 07/22/2022 diarrhea Buspirone Hcl Edema airway High 05/25/1997 Codeine Nausea/vomiting,Othe r (Please comment) Low 05/26/2012 Patient states she passed out. Rosuvastatin 08/26/2021 Restless leg Salicylates Nausea/vomiting Low 05/25/1997 Nose Bleeds. Sulfa Antibiotics Nausea/vomiting Low 06/23/2002 documented as of this encounter (statuses as of 02/08/2024) Medications fluticasone (FLONASE) 50 MCG/ACT nasal sprayIndications:Tin [...] as of this encounter (statuses as of 02/08/2024) Active Problems Problem Noted Date Diagnosed Date [...] as of this encounter (statuses as of 02/08/2024) Resolved Problems Problem Noted Date Diagnosed Date [...] 03/20/2015 GENERALIZED ANXIETY DIS 05/25/199702/23 LOC PRIM [id number] 05/25/199702/23 Dyspnea and respiratory abnormality 05/25/1997 03/20/2015 Overview (12/15/2016): ICD-10 update of inactive term Other chest pain 05/25/1997 03/20/2015 Mitral valve disorder 02/22/19852015 Arthritis of hip 03/20/2015 HTN, goal below 140/90 01/07 documented as of this encounter (statuses as of 02/08/2024) Immunizations Name Administration Dates Next Due COVID-19 mRNA, LNP-s, No Pre serve, 2-Dose Series ([employer]) 01/23/2021,05/01/2020,04/10/2020 Covid-19, Mrna, Lnp-s, Pf, B ivalent, 30 Mcg, IM, 12 yrs and above ([employer]) 12/30/2021 Pneumococcal Conjugate Vacc, 13 Valent (Prevnar) [...] Passive Smoke Exposure: Current Smokeless Tobacco: Never Tobacco Cessation:Counseling Given: Not Answered Alcohol Use Standard Drinks/Week Comments No 0 [...] Sign Reading Time Taken Comments Blood Pressure 158/68 02/08/2024 1:41 PM EST Pulse 70 02/08/2024 1:41 PM EST Temperature 35.9 C (96.6 F) 02/08/2024 1:41 PM ES T Respiratory Rate 16 02/08/2024 1:41 PM EST Oxygen Saturation 98% 02/08/2024 1:41 PM EST Inhaled Oxygen Concentration - - Weight 83 kg (183 lb) 02/08/2024 1:41 PM EST Height - - Body Mass Index 32.42 12/02/2023 12:07 PM EDT documented in this encounter Nursing Notes * Kathy Christiansen LPN - 02/08/2024 1:38 PM EST Dropped a lid on her left little toe few months ago and also dropped a can on it. Little toe red. Painful now. documented in this encounter Plan of Treatment Upcoming Encounters Date Type Department Care Team (Latest Contact Info) Description 02/08/2024 2:45 PM EST Imaging Radiology [address] [place] [id number] Arrived 05/17/2024 11:30 AM EDT Office Visit [address] [place] [phone] Lucita Payan, [address] [place] [address] 05/31/2024 11:15 AM EDT Hospital Encounter [facility], Endoscopy Room [facility] [address] [place] [address] Olga Grubbs MD [address] [place] [address] [place] [address] 05/31/2024 11:15 AM EDT - 05/31/2024 11:45 AM EDT Surgery ENDO [facility], Endoscopy Room [facility] [address] [place] [address] Olga Grubbs MD [address] [place] [address] ESOPHAGOGASTRODUODENOSCOPY (EGD), FLEXIBLE, TRANSORAL, DIAGNOSTIC 07/18/2024 10:30 AM EDT Office Visit Cardiology, [facility] [address] [facility] [place] [address] Esvin Payan, DO [address] [place] [address] 08/08/2024 11:30 AM EDT Imaging Radiology [facility] [address] [place] [phone] 11/29/2024 11:00 AM EDT Nurse Only Ancillary Department, [facility] [address] [facility] [phone] Andre, Nurse Annual Wellness [address] [place] [facility] [place] [address] Scheduled Orders Name Type Priority Associated Diagnoses Orde r Schedule XR TOES 2 OR MORE VIEWS Medical Imaging Routine Toe pain, left Ordered: 02/08/2024 Scheduled Procedures Name Priority Associated Diagnoses Date/Ti [...] as of this encounter Visit Diagnoses Diagnosis Toe pain, left- Primary Pain in limb Esophageal pain Other specified disorder of the esophagus documented in this encounter Care Teams Balloon Pilot Relationship Specialty Start Date End Date Lucita Payan DO [address] [place] [address] PCP - General Family Medicine 08/18/17 documented as of this encounter
--- OUTSIDE RECORDS SUMMARY | 2024-05-06 12:24 | External Medical Summary | Summary of Care ---
Author Name Unknown Organization [facility] Address [address] [place] [address] Phone [phone] Care Team Providers Care Wire Drawing Die Maker Name Role Phone Lucita Payan DO Primary Care Provider [phone] Reason for Visit * Reason Comments NEW PATIENT * Evaluate & Treat - Unlimited Visits (Within 10 days (routine)) - Authorized Specialty Diagnoses / Procedures Referred By Noelle nava Referred To Contact Orthopaedic Surgery / Orthopedics Diagnoses Primary osteoarthritis of both knees Lucita Payan DO [address] [place] [address] Referral ID Status Reason Start Date Expiration Date Visits Requested Visits Authorized [id number] Authorized Specialty Services Required [phone] Encounter Details Date Type Department Care Team (Latest Contact Info) Description 12/27/2023 9:30 AM EST Office Visit Orthopaedics [facility] [address] [place] [address] Keyon Teran PA-C [address] [place] [address] Primary osteoarthritis of both knees* Allergies Active Allergy Reactions Criticality Noted Date Comments Acyclovir And Related Hives,Other ([place]ag[place]ito e comment) Low 07/10/2003 SOB Amoxicillin-Pot Clavulanate [...] Date Status fluticasone (FLONASE) 50 MCG/ACT nasal sprayIndications:Tinni tus of both ears,Dysfunction of Eustachian tube, bilateral,Chronic rhinitis Administer 2 Sprays into each nostril daily. 1 Inhaler 5 01/08/2016 Active Acetaminophen 325 MG Oral Capsule Take by mouth 325 mg 4 times a day as needed . 04/16/2021 Active Omeprazole 20 MG Oral Capsule Delayed Release (PriLOSEC) Take 1 Capsule by mouth in the morning and 1 Capsule before bedtime. 30 minutes before a meal. 180 Capsule 3 01/27/2023 Active Meclizine HCl 12.5 MG Oral Tablet (Antivert)Indications: Vertigo Take 1 Tablet by mouth 3 times a day as needed for Dizziness. 30 Tablet 1 07/29/2023 Active Atorvastatin Calcium 40 MG Oral Tablet (Lipitor)Indications:D yslipidemia, goal LDL below 100 TAKE 1 TABLET BY MOUTH EVERY DAY IN THE MORNING 90 Tablet 3 08/13/2023 Active Metoprolol Succinate ER 25 MG Oral Tablet Extended Release 24 Hour (toPROL XL)Indications:PSVT (paroxysmal supraventricular tachycardia) (HCC),Palpitations,LVH (left ventricular hypertrophy),HTN, goal below 140/90,Nonrheumatic mitral valve regurgitation Take 1 Tablet by mouth in the morning. 90 Tablet 3 09/01/2023 Active Sertraline HCl 50 MG Oral Tablet (Zoloft) TAKE 1 TABLET BY MOUTH EVERY DAY IN THE MORNING 90 Tablet 3 12/21/2023 Active LORazepam 1 MG Oral Tablet (Ativan)Indications:De pression with anxiety TAKE 1 TABLET BY MOUTH TWICE A DAY NEEDED FOR ANXIETY 60 Tablet 12/22/2023 Active Diclofenac Sodium 1 % External Gel (Voltaren) Apply topically to affected area 3 times a day as needed for Pain. Apply to affected area 100 g 2 12/27/2023 Active documented as of this encounter (statuses [...] 03/20/2015 GENERALIZED ANXIETY DIS 05/25/199702/23 LOC PRIM [id number] 05/25/199702/23 Dyspnea and respiratory abnormality 05/25/1997 03/20/2015 Overview: ICD-10 update of inactive term Other chest pain 05/25/1997 03/20/2015 Mitral valve disorder 02/22/19852015 Arthritis of hip 03/20/2015 HTN, goal below 140/90 01/07 documented as of this encounter (statuses as of 12/27/2023) Immunizations Name Administration Dates Next Due COVID-19 mRNA, LNP-s, No Pre serve, 2-Dose Series ([employer]) 01/23/2021,05/01/2020,04/10/2020 Covid-19, Mrna, Lnp-s, Pf, B ivalent, 30 Mcg, IM, 12 yrs and above ([employer]) 12/30/2021 Pneumococcal Conjugate Vacc, 13 Valent (Prevnar) [...] on file documented as of this encounter Progress Notes * Keyon Teran PA-C - 12/27/2023 9:45 AM EST Subjective Sharon Navid Angelo is a 73 year old female. Chief Complaint Patient presents with NEW PATIENT HPI: New patient referred to Orthopedics regarding bilateral knee pain right worse than left times years. Denies any injury or fall. No mechanical symptoms or instability. She had a right knee steroid injection several years ago by Dr. Carroll at [facility] that worked very well and provided her with several years of relief. Has not tried any formal treatments as of late. Did recently use topical Sacha-Hoover that worked quite well for her. Denies calf pain. No numbness or tingling distally. Most recent A1c is 5.8. PMH: Patient Active Problem List Diagnosis Dyslipidemia, goal LDL below 100 Depression with anxiety Personal history of malignant neoplasm of breast Localized primary osteoarthritis of carpometacarpal joint of left thumb Carpal tunnel syndrome of left wrist Laryngopharyngeal reflux disease Congenital nystagmus Palpitations Primary osteoarthritis of right knee HTN, goal below 150/90 Neuropathy, idiopathic LVH (left ventricular hypertrophy) Primary osteoarthritis involving multiple joints Type 2 diabetes mellitus with diabetic polyneuropathy (HCC) Hypertensive heart disease without heart failure Ankylosing spondylitis of cervical region (HCC) MALIK (generalized anxiety disorder) Current Outpatient Medications Medication Sig Dispense Refill fluticasone (FLONASE) 50 MCG/ACT nasal spray Administer 2 Sprays into each nostril daily. 1 Inhaler5 Acetaminophen 325 MG Oral Capsule Take by mouth 325 mg 4 times a day as needed . Omeprazole 20 MG Oral Capsule Delayed Release (PriLOSEC) Take 1 Capsule by mouth in the morning and1 Capsule before bedtime. 30 minutes before a meal. 180 Capsule 3 Meclizine HCl 12.5 MG Oral Tablet (Antivert) [...] EVERY DAY IN THE MORNING 90 Tablet3 LORazepam 1 MG Oral Tablet (Ativan) TAKE 1 TABLET BY MOUTH TWICE A DAY NEEDED FOR ANXIETY 60 Tablet 0 No current facility-administered medications for this visit. Past Medical History: Diagnosis Date Arthritis of [...] of female breast 10/18/01 left ductal carcinoma, F5yBAOR, upper inner quad Migraine with aura Mitral [...] performed by Opal Romero DO at ENDOSCOPY [facility] [address] DENTAL SURGERY PROCEDURE NEC Dental Surgery Procedure DILATION AND CURETTAGE (D&C) D&C FLUORO UPPER GI W AIR WO KUB GERD HOLTER COMPLETE (COMM PRAC) isolated supravent ectopy, sinus tach LAPAROSCOPY; CHOLECYSTECTOMY 09/24/2016 Laparoscopic cholecystectomy performed by Dr. Angel Davila at [facility] 09/24/2016 LIGATE/CUT OVIDUCT(S) 1972 Tubal Ligation MAMMOGRAM SCREENING-BILATERAL 09/21/01 MASTECTOMY, PARTIAL Left 11/09/2001 no chemo MRI BRAIN WITH CONTRAST hyperintensity caudate nucleus, nonspecific finding NEEDLE BIOPSY/REMOVE LYMPH NODE(S) 11/09/01 left axillary sentinel lymph node biopsy. NM LYMPHATICS AND LYMPH NODE IMAGING 11/09/01 left breast ca PARTIAL MASTECTOMY 11/09/01 left breast,[facility] () PLACE NEEDLE LOC WIRE, BREAST 11/09/01 left breast ca RADIATION THERAPY 2001 RADIATION THERAPY MANAGEMENT Left 2002 RADIATION THERAPY MANAGEMENT [facility] 12/12/01-01/15/02 left breast and chest wall,(4680cGy), [facility] RADIATION THERAPY MANAGEMENT [facility] 01/16/02-01/30/02 left breast boost,(1440cGy) [facility], REMOVE CATARACT, INSERT LENS PROSTH 2006 bilateral SENTINEL LYMPH NODE BIOPSY PERFORMED Left 2001 TOTAL ABD HYSTERECTOMY W/WO REMOVAL OF TUBE(S) 2009 endometrial cancer TOTAL HIP REPLACEMENT & PROSTHESIS 09/24/03 Right Hip Replacement [facility] TOTAL HIP REPLACEMENT & PROSTHESIS 12/24/03 Left Hip Replacement [facility] Dr. Carroll US - BREAST(S) 10/05/01 Review of patient's allergies indicates: Allergen Reactions [...] Grandmother (Maternal) coronary artery disease, age 64 Family Status Relation Status PGMA colon ca Sis Alive half sister Son Alive Son Alive Son Alive Sis Mo Fa Sorin (Not Specified) Sis Alive MGMA Social History Socioeconomic History Marital status: Spouse name: Not on file Number of children: 4 Years of education: Not on file Highest education level: Not on file Occupational History Occupation: HOMEMAKER Tobacco Use Smoking status: Never Passive exposure: Current Smokeless tobacco: Never Vaping Use Vaping status: Never Used Substance and Sexual Activity Alcohol use: No Comment: none Drug use: No Comment: 1 cup decaf per am Sexual activity: Yes Partners: Male Comment: no problems Other Topics Concern Not on file Social History Narrative job: Retired - homemaker employer: n/a education: 12 service: no hobbies/interests: Writes stories, poetry, decorating transfusions: 2 uints with 1st hip exercise: little diet: Low fat tenriism/zoroastrian: Baptism- [place] marital status: children: 4 gc: 8 ggc: 1 pets: Dog- chihuahua exposure to violence/threats/abuse: no things to improve: healthier Social Determinants of Health Financial Resource Strain: Low Risk (11/24/2023) Financial Resource Strain Do you have any trouble paying for your medications, or do you think you might in the future? (Adult - for ages 18 years and over): No Does your family have trouble paying for medicine? (Household - for ages 0-17 years): Not on file Food Insecurity: No Food Insecurity (11/24/2023) Food Insecurity Do you need food for this week? (Adult - for ages 18 years and over): No Are you able to get enough food for your family? (Household - for ages 0-17 years): Not on file Does your family need food this week? (Household - for ages 0-17 years): Not on file Do you always have enough food for your family? (Household - for ages 0-17 years): Not on file Transportation Needs: No Transportation Needs (11/24/2023) Transportation Needs Do you have trouble getting a ride to medical visits or work? (Adult - for ages 18 years and over):Not on file Does your family have a hard time getting a ride to doctors visits? (Household - for ages 0-17 years): Not on file Has lack of transportation kept you from medical appointments, meetings, work, or from getting things needed for daily living? Check all that apply. (Adult - for ages 18 years and over): No Do you (or your family) have trouble finding or paying for a ride (transportation)? (Household - for ages 0-17 years): Not on file Social Connections: Socially Integrated (11/24/2023) Social Connections How often do you feel lonely or isolated from those around you? (Adult - for ages 18 years and over): Never Housing Stability: Low Risk (11/24/2023) Housing Stability Do you currently live in a prison or have no steady place to sleep at night? (Adult - for ages 18 years and over): No Do you think you are at risk of becoming homeless? (Adult - for ages 18 years and over): Not on file Does your family worry about paying for your home or becoming homeless? (Household - for ages 0-17 years): Not on file Are you homeless or worried that you might be in the future? (Adult - for ages 18 years and over): No Are you (or your family) homeless or worried that you might be in the future? (Household - for ages0-17 years): Not on file Objective There were no vitals taken for this visit. complete review of systems negative General: alert and oriented x3 female, no acute distress, appears currently stated age, pleasant, well nourished Skin: Right and left knee does not reveal any erythema, effusion, ecchymosis, abrasion, laceration,skin breakdown otherwise Neurovascular: Right and left lower extremity is neurovascularly intact with good sensation strength throughout, calf supple nontender, toes were mobile, +5 strength dorsi and plantar flexion of the foot Musculoskeletal: Right and left knee ROM 0-120, lateral jointline tenderness, noted crepitation noted in PFJ, femoral condyles are tender as well. Ligamentously stable regarding cruciate and collateral ligaments. Extensor mechanism intact. No obvious cystic change or masses the popliteal fossa. Pes anserine bursa and patellar tendon nontender. Hip and ankle atraumatic X-rays of the right and left knee reveal fairly well-preserved joint spaces although narrowing along the lateral joint line No acute findings such as fracture dislocation or subluxation. Unable to identify any type of obvious cystic changes or masses in the bone. Official radiology report to follow accordingly and we listed in the patient's chart under imaging. Personal interpretation and documentation regarding today's plain film radiographs performed by myself. ASSESSMENT/PLAN: Knee pain (Primary) - XR KNEE 4 OR MORE VIEWS Impression: Bilateral knee osteoarthritis right worse than left Plan: Today 's findings were discussed with the patient. They were educated regarding their diagnosis. Multiple treatment options discussed and agreed upon, including physical therapy exercises, thermal modalities, Voltaren gel, behavior modification and rest. We also discussed injectables and the patient is not interested. She does state the corticosteroid causes fluttering and a rapid heart rate and we would like to avoid if possible. Minimal relief and she is open to the idea of possibly receiving CHRISTIANSON gel injection series. I would feel more comfortable with hyaluronic acid over steroid as she is diabetic and she has had concerning adverse reactions from a cardiac standpoint in the past. She will notify the office in 3 weeks of results and if she would like to pursue CHRISTIANSON injections for mainly of the right knee. Would happily see back sooner upon her request. The patient has no other questions or concerns. Pleased with today 's care. Call sooner if needed. This chart was completed in part utilizing [employer] Voice Recognition Software. Grammatical errors, random word insertions, prounoun errors, and incomplete sentences are an occasional consequence of this system due to software limitations, ambient noise, and hardware issues. Any formal questions or concerns about the content, text, or information contained within the body of this dictation should be directly addressed to the provider for clarification. Keyon Teran PA-C documented in this encounter Nursing Notes * Yesenia Hunter CCMA - 12/27/2023 9:40 AM EST Bilat knee pain documented in this encounter Plan of Treatment Upcoming Encounters Date Type Department Care Team (Late st Contact Info) Description 01/06/2024 3:30 PM EST Imaging Radiology, [place] [phone] [facility] [place] [address] 05/17/2024 11:30 AM EDT Office Visit [facility] [address] [facility] [place] [address] Lucita Payan DO [address] [place] [address] 07/18/2024 10:30 AM EDT Office Visit Cardiology, [facility] [address] [facility] [place] [address] Esvin Payan O, DO [address] [place] [address] 11/29/2024 11:00 AM EDT Nurse Only Ancillary Department, [place] [address] [facility] [address] [place], Nurse [facility] [address] [facility] [address] Pending Results Name Type Priority Associated Diagnoses Date /Time XR KNEE 4 OR MORE VIEWS Medical Imaging Routine 12/27/2023 9:49 AM EST Scheduled Procedures Name Priority Associated Diagnoses Date/Ti [...] as of this encounter Visit Diagnoses Diagnosis Primary osteoarthritis of both knees- Primary Primary localized osteoarthrosis, lower leg documented in this encounter Care Teams Wire Drawing Die Maker Relationship Specialty Start Date End Date Lucita Payan DO [address] [place] [address] PCP - General Family Medicine 08/18/17 documented as of this encounter
--- OUTSIDE RECORDS SUMMARY | 2024-05-06 12:24 | External Medical Summary | Summary of Care ---
Author Name Unknown Organization [facility] Address [address] [facility] [address] Phone [phone] Care Team Providers Care Ophthalmic Medical Technologist Name Role Phone Lucita Payan DO Primary Care Provider Reason for Visit * Reason Onset Date Comments Health Maintenance 01/31/2024 Encounter Details Date Type Department Care Team (Late st Contact Info) Description 01/31/2024 Telephone [facility] [address] [facility] [place] [address] Lucita Payan DO [address] [facility] [place] [address] Health Maintenance Allergies Active Allergy [...] 03/20/2015 GENERALIZED ANXIETY DIS 05/25/199702/23 LOC PRIM [id number] 05/25/199702/23 Dyspnea and respiratory abnormality 05/25/1997 03/20/2015 Overview (12/15/2016): ICD-10 update of inactive term Other chest pain 05/25/1997 03/20/2015 Mitral valve disorder 02/22/19852015 Arthritis of hip 03/20/2015 HTN, goal below 140/90 01/07 documented as of this encounter (statuses as of 01/31/2024) Immunizations Name Administration Dates Next Due COVID-19 mRNA, LNP-s, No Pre serve, 2-Dose Series ([employer]) 01/23/2021,05/01/2020,04/10/2020 Covid-19, Mrna, Lnp-s, Pf, B [...] Encounter - Constance Dennis LPN - 01/31/2024 4:16 PM EST Last exam centre eye has was August 14 * Telephone Encounter - Constance Dennis LPN [...] Description 05/17/2024 11:30 AM EDT Office Visit [facility] [address] [place] [address] Lucita Payan, DO [address] [facility] [place] [address] 05/31/2024 11:15 AM EDT Hospital Encounter ENDO [facility], Endoscopy Room [facility] [address] [place], [place] [phone] Olga Grubbs MD [address] [place] [address] 05/31/2024 11:15 AM EDT - 05/31/2024 11:45 AM EDT Surgery ENDO [facility], Endoscopy Room [facility] [address] [place], [place] [phone] Olga Grubbs MD [address] [place] [phone] ESOPHAGOGASTRODUODENOSCOPY (EGD), FLEXIBLE, TRANSORAL, DIAGNOSTIC 07/18/2024 10:30 AM EDT Office Visit Cardiology, [facility] [address] [facility] [place] [address] Esvin Payan, DO [address] [place] [address] 08/08/2024 11:30 AM EDT Imaging Radiology, [place] [address] [facility], [place] [address] 11/29/2024 11:00 AM EDT Nurse Only Ancillary Department, [address] [facility] [place] [phone] Andre Nurse Annual Wellness [address] [facility] [place] [address] Scheduled Orders Name Type Priority Associated Diagnoses [...] esophagus documented in this encounter Care Teams Ophthalmic Medical Technologist Relationship Specialty Start Date End Date Lucita Payan DO [address] [place] [address] PCP - General Family Medicine 08/18/17 documented as of this encounter
--- OUTSIDE RECORDS SUMMARY | 2024-05-06 12:25 | External Medical Summary | Summary of Care ---
Author Name Unknown Organization [facility] Address [address] [place] [address] Phone [phone] Care Team Providers Care Network Solutions Architect Name Role Phone Irena Mcnair DO Primary Care Provider Reason for Visit * Reason Comments eRx-Medication Refill Encounter Details Date Type Department Care Team (Late st Contact Info) Description 11/16/2023 Refill [place] [address] [place] [address] Irena Mcnair DO [address] [place] [address] Depression with anxiety Allergies Active [...] as of this encounter (statuses as of 11/17/2023) Medications Medication Sig Dispensed Refills Start Date [...] a meal. 180 Capsule 3 3 Active Aspirin 81 MG Oral Tablet Chewable Take 1 Tablet by mouth in the morning. 100 Tablet 3 4 Active Additional Information Patient not taking.Reported on 11/05/2023 Meclizine HCl 12.5 MG Oral Tablet (Antivert)Indication [...] DAY NEEDED FOR ANXIETY 60 Tablet 4 024 Discontinued documented as of this encounter (statuses as of 11/17/2023) Active Problems Problem Noted Date Diagnosed Date [...] as of this encounter (statuses as of 11/17/2023) Resolved Problems Problem Noted Date Diagnosed Date [...] 03/20/2015 GENERALIZED ANXIETY DIS 05/25/199702/23 LOC PRIM [id number] 05/25/199702/23 Dyspnea and respiratory abnormality 05/25/1997 03/20/2015 Overview: ICD-10 update of inactive term Other chest pain 05/25/1997 03/20/2015 Mitral valve disorder 02/22/19852015 Arthritis of hip 03/20/2015 HTN, goal below 140/90 01/07 documented as of this encounter (statuses as of 11/17/2023) Immunizations Name Administration Dates Next Due COVID-19 mRNA, LNP-s, No Pre serve, 2-Dose Series (Pfizer) 01/23/2021,05/01/2020,04/10/2020 Pneumococcal Conjugate Vacc, 13 Valent (Prevnar) 03/20/2015 Pneumococcal Polysaccharide PPV23 (Pneumovax) 03/02/2017 Seasonal Influenza, PF, 6 M & above, [...] Answer Date Recorded PHQ Adult Total Score 1 11/19/2022 Hunger Vital Sign Answer Date Recorded Within the past 12 months, y ou worried that your food would run out before you got the money to buy more. Never true 03/06/19 23 Within the past 12 months, t he food you bought just didn't last and you didn't have money to get more. Never true 03/06/2022 Utilities Answer Date Recorded Do you have trouble paying y our heating, water, or electric bill? (Adult - for ages 18 years and over) Not on file 08/10/2023 Is your family able to pay t he heat, water, or electric bill? (Household - for ages 0-17 years) Not on file 08/10/2023 Does your family have access to good internet? (Household - for ages 0-17 years) Not on file 08/10/2023 Social Connections Answer Date Recorded How often do you feel lonely or isolated from those around you? (Adult - for ages 18 years and over) Not on file 08/10/2023 Sex and Gender Information Value Date Recorded Sex Assigned at Female 06/20/2018 12:01 PM EDT Gender Identity Female 06/20/2018 12:01 PM EDT Sexual Orientation Straight 06/20/2018 12 :01 PM EDT Job Start Date Occupation Industry Not on file Not on file Not on file documented as of this encounter Miscellaneous Notes * Telephone Encounter - Irena Mcnair DO - 11/17/2023 2:30 PM EDTSigned Prescriptions: Disp Refills LORazepam 1 MG Oral Tablet (Ativan) 60 Tab*0 Sig: TAKE 1 TABLET BY MOUTH TWICE A DAY NEEDED FOR ANXIETY Authorizing Provider: IRENA MCNAIR Refused Prescriptions: Disp Refills Sertraline HCl 50 MG Oral Tablet (Zoloft) 90 Tab*5 Sig: TAKE 1 TABLET BY MOUTH EVERY DAY IN THE MORNING Refused By: JUANCARLOS FULTON Reason for Refusal: Refill Not Appropriate * Telephone Encounter - Juancarlos Fulton [facility] - 11/17/2023 1:16 PM EDTPending Prescriptions: Disp Refills LORazepam 1 MG Oral Tablet (Ativan) 60 Tab*0 Sig: TAKE 1 TABLET BY MOUTH TWICE A DAY NEEDED FOR ANXIETY Refused Prescriptions: Disp Refills Sertraline HCl 50 MG Oral Tablet (Zoloft) 90 Tab*5 Sig: TAKE 1 TABLET BY MOUTH EVERY DAY IN THE MORNING Refused By: JUANCARLOS FULTON Reason for Refusal: R efill Not Appropriate * Telephone Encounter - Juancarlos Fulton RPh - 11/17/2023 1:15 PM EDT I have reviewed the patients controlled substance dispensing history in the Prescription Drug Monitoring Program in compliance with the [facility] regulations before prescribing a controlled substance. PDMP checked on 11/17/2023. Pending Prescriptions: Disp Refills LORazepam 1 MG Oral Tablet (Ativan) [Phar*60 Tab*0 Sig: TAKE 1 TABLET BY MOUTH TWICE A DAY NEEDED FOR ANXIETY Refused Prescriptions: Disp Refills Sertraline HCl 50 MG Oral Tablet (Zoloft) 90 Tab*5 Sig: TAKE 1 TABLET BY MOUTH EVERY DAY IN THE MORNING Refused By: JUANCARLOS FULTON Reason for Refusal: Refill Not Appropriate Last Visit: 11/05/2023 (in office), 01/24/2020 (telemedicine) Next Visit: 12/02/2023 Date medication was last filled: 10/17 Date medication is due for refill: 11/15 Pharmacy: [id number] Is this request for a controlled substance? Yes and Urine Drug Screen Not completed Toxicology results: No results found for this or any previous visit. Please approve if appropriate. Thank you, Juancarlos Fulton, PharmD Clinical Pharmacist [facility] [phone] 11/17/2023, 1:15 PM documented in this encounter Plan of Treatment Upcoming Encounters Date Type Department Care Team (Late st Contact Info) Description 11/24/2023 11:00 AM EDT Nurse Only [facility] Department[facility] [place] [address] [facility] [address] [place], Nurse Annual Wellness [address] [place] [address] 12/02/2023 12:10 PM EDT Office Visit [facility], [place] [address] [facility] [phone] Irena Mcnair, DO [address] [facility] [address] 12/07/2023 9:00 AM EDT Office Visit [facility], [facility] [address] [facility] [place] [address] [place] [facility] [place] [address] 05/17/2024 11:30 AM EDT Office Visit [facility], [place] [address] [facility] [phone] Irena Mcnair, DO [address] [place] [address] Scheduled Procedures Name Priority Associated Diagnoses Date/Ti me COLONOSCOPY FLEXIBLE PROXIMAL DIAGNOSTIC Recall Colon cancer screening Health Maintenance Due Date Last Done Comments Cologuard 1993 Sigmoidoscopy 1993 Fecal Occult Blood Test 12/09/2001 12/09/2000 DXA Scan 04/30/2020 05/01/2015 COVID-19 Vaccine ( season) 2023 12/30/2021, 01/23/2021, 12/21/2020, Additional history exists Influenza Vaccine (FLU shot) (#1) 2023 11/19/2022, 12/25/2021, 11/14/2020, Additional history exists Adult Wellness Visit 11/20/2023 11/19/2022, 11/18/2021, 11/14/2020 Depression Monitoring 11/20/2023 11/19/2022 Diabetic Foot Exam 11/26/2023 11/19/2022, 0 09/03/2021, 08/30/2020, Additional history exists Postponed from 11/20/2023 (Patient Declined After Education) Zoster Vaccines (1 of 2) 11/26/2023 Pos tponed from 1998 (Patient Declined After Education) Diabetic Eye Exam 11/27/2023 07/23/2022, , 01/12/2019 Postponed from 07/24/2023 (Patient Declined After Education) Hepatitis C Screening 11/27/2023 Postpo omega from 1966 (Patient Declined After Education) HbA1c 01/28/2024 07/29/2023, 12/0 07/2022, 07/22/2022, Additional history exists Albumin/Creatinine Ratio 07/28/2024 024, 02/27/2022, 12/25/2020, Additional history exists GFR 07/28/2024 07/29/2023, 12/0 07/2022, 07/22/2022, Additional history exists Mammogram 08/05/2024 08/06/2023, 10/23, 11/04/2022, Additional history exists Colonoscopy 09/09/2025 09/10/2015, 09/10/2015 Colorectal Cancer Screening 09/09/2025 DTap/Tdap Vaccines (2 - Td or Tdap) 08/19/2027 08/18/2017, 04/13/2001 Lipid Panel 07/28/2028 07/29/2023, 06/24, 07/23/2021, Additional history exists Pneumococcal Vaccine: 65+ Years Completed 03/02/2017, 03/20/2015 HPV (Gardasil) Vaccine Aged Out No lo nger eligible based on patient's age to complete this topic Hepatitis B Vaccine Aged Out No longe r eligible based on patient's age to complete this topic MENINGOCOCCAL (MENACTRA/MENVEO) Aged Out No longer eligible based on patient's age to complete this topic documented as of this encounter Medical Devices Not on filedocumented as of this encounter Visit Diagnoses Diagnosis Depression with anxiety Dysthymic disorder documented in this encounter Care Teams Network Solutions Architect Relationship Specialty Start Date End Date Irena Mcnair DO [address] [place] [id number] PCP - General Family Medicine 08/18/17 documented as of this encounter
--- OUTSIDE RECORDS SUMMARY | 2024-05-06 12:25 | External Medical Summary | Summary of Care ---
Author Name Unknown Organization [facility] Address [address] [place] [address] Phone [phone] Care Team Providers Care Communication Equipment Mechanic Name Role Phone EdwinLucita del cid Maya CHAMBERLAIN Primary Care Provider Reason for Visit * Reason Onset Date Comments Appointment 12/02/2023 Upper Endoscopy Encounter Details Date Type Department Care Team (Late st Contact Info) Description 12/02/2023 Telephone Gastroenterology, [place] [address] [place] [address] Specified, [facility] [address] [place] [address] Appointment (Upper Endoscopy ) Allergies [...] as of this encounter (statuses as of 12/07/2023) Medications Medication Sig Dispensed Refills Start Date [...] the morning. 90 Tablet 3 09/01/2023 Active LORazepam 1 MG Oral Tablet (Ativan)Indications:De pression with anxiety TAKE 1 TABLET BY MOUTH TWICE A DAY NEEDED FOR ANXIETY 60 Tablet 11/17/2023 Active Sertraline HCl 50 MG Oral Tablet (Zoloft) Take 1 Tablet by mouth in the morning. Active documented as of this encounter (statuses as of 12/07/2023) Active Problems Problem Noted Date Diagnosed Date [...] as of this encounter (statuses as of 12/07/2023) Resolved Problems Problem Noted Date Diagnosed Date [...] 03/20/2015 GENERALIZED ANXIETY DIS 05/25/199702/23 LOC PRIM PAENYRIW-B-EAL 05/25/199702/23 Dyspnea and respiratory abnormality 05/25/1997 03/20/2015 Overview: ICD-10 update of inactive term Other chest pain 05/25/1997 03/20/2015 Mitral valve disorder 02/22/19852015 Arthritis of hip 03/20/2015 HTN, goal below 140/90 01/07 documented as of this encounter (statuses as of 12/07/2023) Immunizations Name Administration Dates Next Due COVID-19 mRNA, LNP-s, No Pre serve, 2-Dose Series (Email Data Source) 01/23/2021,05/01/2020,04/10/2020 Covid-19, Mrna, Lnp-s, Pf, B ivalent, [...] 11/24/2023 Does the household have a re lar source of income? (Household - for ages [...] EDT Order UPPER ENDOSCOPY GI REFERRAL OP [[id number]] (Order [id number]) Guillermina Clinton 12/02/2023 12:10 PM Office Visit Description: 72 year old female Provider: Lucita Payna DO Department: [facility] MOREIRA [facility] Order Information Date and Time Department Ordering/Authorizing 12/02/2023 12:31 PM [facility] Order Providers Authorizing Provider Encounter Provider ([id number]) Lucita Payan DO ([id number]) Lucita Payan DO Priority and Order Details [...] (routine) Where should this appointment be scheduled? [facility] Referral (Authorized) ID: [id number] Created on: 12/02/2023 Referred by Referred to Lucita Payan DO Gastroenterology Reason: Ancillary Services Required Priority: Within 10 days (routine) Type: Ancillary Services Visits Requested: 999 Decision Date: 12/02/2023 Start Date: 12/02/2023 Related Appointments None Associated Diagnoses Epigastric pain [R10.13] - Primary Encounter View Encounter Reprint Requisition UPPER ENDOSCOPY GI REFERRAL OP (Order #[id number]) on 12/02/23 Detailed Information Priority and Order Details Reference Links Neighborly Acct Guarantor Acct Type [id number] GUILLERMINA CLINTON Personal/Family [1] Service Location Name Address Phone [address] [phone] Currently Active Insurance Payor Plan Subscriber Member ID GHP GOLD GHP GOLD PREFERRED ENHANCED MP-DD GUILLERMINA CLINTON [id number] documented in this encounter Plan of Treatment Upcoming Encounters Date Type Department Care Team (Late st Contact Info) Description 12/27/2023 9:30 AM EST Office Visit Orthopaedics [facility] [address] [facility] [place] [address] Keyon Teran PA-C [address] [place] [address] 01/06/2024 3:30 PM EST Imaging Radiology, [address], [place] [address] 05/17/2024 11:30 AM EDT Office Visit Family [facility], [place] [address] [facility] [phone] Lucita [facility]an [facility] [address] [facility] [address] 07/18/2024 10:30 AM EDT Office Visit Cardiology, [facility] [address] [place] [address] Esvin Payan DO [address] [place] [address] 11/29/2024 11:00 AM EDT Nurse Only Ancillary Department, [place] [address] [facility] [address] [place], Nurse Annual Wellness [address] [facility] [place] [address] Scheduled Procedures Name Priority Associated Diagnoses Date/Ti [...] 08/05/2024 08/06/2023, 10/23, 11/04/2022, Additional history exists Adult Wellness Visit 11/23/2024 11/24/2023, 11/19/2022, 11/18/2021, Additional history exists Depression Monitoring 11/23/2024 11/24/2023 Colonoscopy 09/09/2025 09/10/2015, 09/10/2015 Colorectal Cancer Screening 09/09/2025 DTap/Tdap Vaccines (2 - Td or Tdap) 08/19/2027 08/18/2017, 04/13/2001 Lipid Panel 07/28/2028 07/29/2023, 06/24, 07/23/2021, Additional history exists Pneumococcal Vaccine: 65+ Years Completed 03/02/2017, 03/20/2015 Influenza Vaccine (FLU shot) Completed 11/24/2023, 11/19/2022, 12/25/2021, Additional history exists HPV (Gardasil) Vaccine Aged Out No lo [...] filedocumented as of this encounter Care Teams Communication Equipment Mechanic Relationship Specialty Start Date End Date Lucita Payan DO [address] [place] [address] PCP - General Family Medicine 08/18/17 documented as of this encounter
--- OUTSIDE RECORDS SUMMARY | 2024-05-06 12:25 | External Medical Summary | Summary of Care ---
Author Name Unknown Organization [facility] Address [address] [place] [address] Phone [phone] Care Team Providers Care Terminal Computer Operator Name Role Phone Lucita Payan DO Primary Care Provider [phone] Reason for Visit * Reason Onset Date Comments Adult Annual Wellness Visit, Subsequent Visit Medication Administration 11/24/2023 Flu an d/or Pneumo Inj Encounter Details Date Type Department Care Team (Late st Contact Info) Description 11/24/2023 11:00 AM EDT Nurse Only Ancillary Department, [place] [address] [place] [address] [place], Nurse Annual Wellness [address] [place] [address] Adult Annual Wellness Visit, Subsequent Vi... Allergies Active Allergy Reactions Criticality Noted Date Comments Acyclovir And Related Hives,Other (Pleas e comment) Low 07/10/2003 SOB Amoxicillin-Pot Clavulanate 07/22/2022 diarrhea Buspirone Hcl Edema airway High 05/25/1997 Codeine Nausea/vomiting,Othe r (Please comment) Low 05/26/2012 Patient states she passed out. Rosuvastatin 08/26/2021 Restless leg Salicylates Nausea/vomiting Low 05/25/1997 Nose Bleeds. Sulfa Antibiotics Nausea/vomiting Low 06/23/2002 documented as of this encounter (statuses as of 11/24/2023) Medications Medication Sig Dispensed Refills Start Date End Date Status fluticasone (FLONASE) 50 MCG/ACT nasal sprayIndications:Tinn itus of both ears,Dysfunction of Eustachian tube, bilateral,Chronic [...] a meal. 180 Capsule 3 01/27/2023 Active Aspirin 81 MG Oral Tablet Chewable Take 1 Tablet by mouth in the morning. 100 Tablet 3 06/29/2023 Active Additional Information Patient not taking.Reported on 11/05/2023 Meclizine HCl 12.5 MG Oral Tablet (Antivert)Indications :Vertigo Take 1 Tablet by mouth 3 times a day as needed for Dizziness. 30 Tablet 1 07/29/2023 Active Atorvastatin Calcium 40 MG Oral Tablet (Lipitor)Indications: Dyslipidemia, goal LDL below 100 TAKE 1 TABLET BY MOUTH EVERY DAY IN THE MORNING 90 Tablet 3 08/13/2023 Active Metoprolol Succinate ER 25 MG Oral Tablet Extended Release 24 Hour (toPROL XL)Indications:PSVT (paroxysmal supraventricular tachycardia) (HCC),Palpitations,LV H (left ventricular hypertrophy),HTN, goal below 140/90,Nonrheumatic mitral valve regurgitation Take 1 Tablet by mouth in the morning. 90 Tablet 3 09/01/2023 Active LORazepam 1 MG Oral Tablet (Ativan)Indications:D epression with anxiety TAKE 1 TABLET BY MOUTH TWICE A DAY NEEDED FOR ANXIETY 60 Tablet 11/17/2023 Active Sertraline HCl 50 MG Oral Tablet (Zoloft) Take 1 Tablet by mouth in the morning. Active documented as of this encounter (statuses as of 11/24/2023) Active Problems Problem Noted Date Diagnosed Date [...] as of this encounter (statuses as of 11/24/2023) Resolved Problems Problem Noted Date Diagnosed Date [...] 03/20/2015 GENERALIZED ANXIETY DIS 05/25/199702/23 LOC PRIM [id number] 05/25/199702/23 Dyspnea and respiratory abnormality 05/25/1997 03/20/2015 Overview: ICD-10 update of inactive term Other chest pain 05/25/1997 03/20/2015 Mitral valve disorder 02/22/19852015 Arthritis of hip 03/20/2015 HTN, goal below 140/90 01/07 documented as of this encounter (statuses as of 11/24/2023) Immunizations Name Administration Dates Next Due COVID-19 mRNA, LNP-s, No Pre serve, 2-Dose Series ([employer]) 01/23/2021,05/01/2020,04/10/2020 Covid-19, Mrna, Lnp-s, Pf, B ivalent, [...] Sign Reading Time Taken Comments Blood Pressure 138/70 11/24/2023 12:00 PM EDT Pulse 53 11/24/2023 11:34 AM EDT Temperature 36.4 C (97.5 F) 11/24/2023 11:34 AM E DT Respiratory Rate - - Oxygen Saturation 98% 11/24/2023 11:34 AM EDT Inhaled Oxygen Concentration - - Weight 82.8 kg (182 lb 9.6 oz) 11/24/2023 11:34 AM EDT Height 160 cm (5' 3") 11/24/2023 11:34 AM EDT Body Mass Index 32.35 11/24/2023 11:34 AM EDT documented in this encounter Patient Instructions * Patient Instructions* April Belle, OLIVER - 11/24/2023 11:56 AM EDT Hi Ms. Angelo, As your primary care physician, I know that regular visits with my patients who have several chronic conditions can go a long way in helping you stay healthy. Many times, the clinic team and I are in touch with you and/or other care team members between office visits to adjust medications, discuss any changes in your health, and review our care plan to make sure it is still meeting your needs. I am dedicated to helping you take a more active role in your overall care. It is important that there are resources available to you, so I created a personalized plan of care with a Health Calendar for you, which is included on the next page of this letter. Below is a list that summarizes your electronic health record: Health Maintenance Due: Health Maintenance Due Topic Date Due DXA Scan 04/30/2020 Influenza Vaccine (FLU shot) (1) 10/24/2023 COVID-19 Vaccine ( season) 2023 Current Medication List: (as of Visit date not found (in office), Visit date not found (telemedicine) ) Current Outpatient Medications Medication Sig Dispense Refill Acetaminophen 325 MG Oral Capsule Take by mouth 325 mg 4 times a day as needed . Omeprazole 20 MG Oral Capsule Delayed Release (PriLOSEC) Take 1 Capsule by mouth in the morningand 1 Capsule before bedtime. 30 minutes before a meal. 180 Capsule 3 Atorvastatin Calcium 40 MG Oral Tablet (Lipitor) TAKE 1 TABLET BY MOUTH EVERY DAY IN THE MORNING 90 Tablet 3 Metoprolol Succinate ER 25 MG Oral Tablet Extended Release 24 Hour (toPROL XL) Take 1 Tablet bymouth in the morning. 90 Tablet 3 LORazepam 1 MG Oral Tablet (Ativan) TAKE 1 TABLET BY MOUTH TWICE A DAY NEEDED FOR ANXIETY 60Tablet 0 Sertraline HCl 50 MG Oral Tablet (Zoloft) Take 1 Tablet by mouth in the morning. fluticasone (FLONASE) 50 MCG/ACT nasal spray Administer 2 Sprays into each nostril daily. 1 Inhaler 5 Aspirin 81 MG Oral Tablet Chewable Take 1 Tablet by mouth in the morning. (Patient not taking: Reported on 11/05/2023) 100 Tablet 3 Meclizine HCl 12.5 MG Oral Tablet (Antivert) Take 1 Tablet by mouth 3 times a day as needed forDizziness. 30 Tablet 1 No current facility-administered medications for this visit. Current List of Allergies: (as of Visit date not found (in office), Visit date not found (telemedicine) ) Review of patient's allergies indicates: Allergen Reactions Buspirone Hcl Edema airway Augmentin [Amoxicillin-Pot Clavulanate] diarrhea Crestor [Rosuvastatin] Restless leg Acyclovir And Related Hives and Other (Please comment) SOB Codeine Nausea/vomiting and Other (Please comment) Patient states she passed out. Salicylates Nausea/vomiting Nose Bleeds. Sulfa Antibiotics Nausea/vomiting Most Recent Lab Results: Results for orders placed or performed in visit on 10/18/23 CULTURE, URINE, QUANTITATIVE Specimen: Urine, Clean Catch Result Value Ref Range Culture Growth No significant growth URINALYSIS, POINT OF CARE (ENTER/EDIT) Result Value Ref Range Color, Urine Dark Yellow Yellow or Light Yellow Clarity, Urine Cloudy Clear Glucose, Urine Negative Negative mg/dL Bilirubin, Urine Negative Negative Ketone, Urine Negative Negative mg/dL Specific [place], Urine 1.030 1.003 - 1.030 Blood, Urine Negative Negative pH, Urine 5.5 5.0 - 7.5 units Protein, Urine Negative Negative mg/dL Urobilinogen, Urine 0.2 0.2 - 1.0 mg/dL Nitrite, Urine Negative Negative Esterase, Urine Negative Negative Sincerely, Lucita Payan, DO 11/24/2023 [facility] Calendar (as of Visit date not found (in office), Visit date not found (telemedicine) ) Care needs Care needs Last completed Due next Bone Density 05/01/2015 04/30/2020 Flu vaccine (recommended) (1) 11/19/2022 10/24/2023 COVID-19 Vaccine ( season) 2021 10/24/2023 Diabetic Foot Exam 11/19/2022 11/26/2023 (Originally 11/20/2023) Zoster (Shingles) Vaccine (1 of 2) --- 11/26/2023 (Originally 1998) Diabetic Eye Exam 07/23/2022 11/27/2023 (Originally 07/24/2023) Hepatitis C screening --- 11/27/2023 (Originally 1966) A1C blood sugar test 07/29/2023 01/28/2024 Urine albumin/creatinine test 07/29/2023 07/28/2024 Kidney Function Test 07/29/2023 07/28/2024 Mammogram 08/06/2023 08/05/2024 Adult Wellness Visit 11/24/2023 11/23/2024 Colorectal cancer screening (colonoscopy 10 years, sigmoidoscopy 5 years, Cologuard 3 years, stool sample 1 year) 09/10/2015 09/09/2025 Diphtheria, tetanus & pertussis vaccines (2 - Td or Tdap) 08/18/2017 08/19/2027 Lipid (cholesterol) disorder screening 07/29/2023 07/28/2028 As you look over the recommended services, be sure to check with your insurance company to determine what's covered. [employer] is a great tool that helps you review your medical record online, including test results, doctor notes and your health summary. You can also schedule appointments with me and other members of your care team, request prescription refills and ask for advice related to your medical conditions at [email or web address]. documented in this encounter Progress Notes * April Belle RN - 11/24/2023 11:27 AM EDT PRE - ADMINISTRATION DOCUMENTATION Are you experiencing any cold symptoms or fever? No Have you had Guillain-Mendon Syndrome (an illness that causes paralysis) within the last 6 weeks? No Have you had the flu shot in the past? YES Have you ever had a reaction to the flu shot? No April Belle RN, 11/24/2023 11:27 AM Immunization Administration Documentation Time Out Procedure Performed: Yes Patient Identified (Ask Name/Date of ): Yes Does the patient have a fever greater than 101 degrees today? No Patient allergic to latex? No VFC Stock: No Immunization(s) verified: Yes, Immunization Name: Flu, VIS Sheet(s) given: Yes Verified Side and Site: Yes Verified Shot(s) with Parent(s)/Patient: Yes AD8 Dementia Screening Interview Person answering questions: patient Remember, "Yes, a change" indicates that there has been a change in the last several years caused by cognitive (thinking and memory) problems 1. Problems with judgement (eg: problems making decisions, bad financial decisions, problems with thinking). No (0) 2. Less interest in hobbies/activities. No (0) 3. Repeats the same things over and over (questions, stories, or statements). No (0) 4. Trouble learning how to use a tool, appliance, or gadget (eg: VCR, computer, microwave, remote control). No (0) 5. Forgets correct month or year. No (0) 6. Trouble handling complicated financial affairs (eg: balancing checkbook, income taxes, paying bills). No (0) 7. Trouble remembering appointments. No (0) 8. Daily problems with thinking and/or memory. No (0) TOTAL AD8: 0 - AD8 Dementia Screening Score The final score is a sum of the number items marked "Yes, A Change". 0 - 1: Normal cognition; 2 or greater: Cognitive impairments is likely to be present - further testing required Adult Annual Wellness Visit: Sharon Angelo is a 72 year old female who presents for an Adult Annual Wellness Visit. Depression Screening: Did the patient complete the screening questionnaire for Depression? Yes Is the patient's total score for Depression 15 or greater? No, no further intervention needed, unless requested by patient. Did the patient answer positively to the suicide question? No, no further intervention needed, unless requested by patient. In general, compared to other people your age, what would you say that your health is? Good Ht Readings from Last 1 Encounters: 11/24/23 1.6 m (5' 3") Wt Readings from Last 1 Encounters: 11/24/23 82.8 kg (182 lb 9.6 oz) Body Mass Index: BMI Greater than 30 Body mass index is 32.35 kg/m. BP Readings from Last 1 Encounters: 11/24/23 138/70 Medical/Surgical/Family History Reviewed: Yes Past Medical History: Diagnosis Date Arthritis of [...] of female breast 10/18/01 left ductal carcinoma, [id number], upper inner quad Migraine with aura Mitral [...] performed by Opal Romero DO at ENDOSCOPY [facility] DENTAL SURGERY PROCEDURE NEC Dental Surgery Procedure DILATION AND CURETTAGE (D&C) D&C FLUORO UPPER GI W AIR WO KUB GERD HOLTER COMPLETE (COMM PRAC) isolated supravent ectopy, sinus tach LAPAROSCOPY; CHOLECYSTECTOMY 09/24/2016 Laparoscopic cholecystectomy performed by Dr. Angel Davila at [facility] 09/24/2016 LIGATE/CUT OVIDUCT(S) 1972 Tubal Ligation MAMMOGRAM SCREENING-BILATERAL 09/21/01 MASTECTOMY, PARTIAL Left 11/09/2001 no chemo MRI BRAIN WITH CONTRAST hyperintensity caudate nucleus, nonspecific finding NEEDLE BIOPSY/REMOVE LYMPH NODE(S) 11/09/01 left axillary sentinel lymph node biopsy. NM LYMPHATICS AND LYMPH NODE IMAGING 11/09/01 left breast ca PARTIAL MASTECTOMY 11/09/01 left breast,[facility] PLACE NEEDLE LOC WIRE, BREAST 11/09/01 left breast ca RADIATION THERAPY 2001 RADIATION THERAPY MANAGEMENT Left 2002 RADIATION THERAPY MANAGEMENT [facility] 12/12/01-01/15/02 left breast and chest wall,(4680cGy), [facility] RADIATION THERAPY MANAGEMENT [facility] 01/16/02-01/30/02 left breast boost,(1440cGy) [facility], REMOVE CATARACT, INSERT LENS PROSTH 2006 bilateral SENTINEL LYMPH NODE BIOPSY PERFORMED Left 2001 TOTAL ABD HYSTERECTOMY W/WO REMOVAL OF TUBE(S) 2009 endometrial cancer TOTAL HIP REPLACEMENT & PROSTHESIS 09/24/03 Right Hip Replacement [facility] TOTAL HIP REPLACEMENT & PROSTHESIS 12/24/03 Left Hip Replacement [facility] Dr. Carroll US - BREAST(S) 10/05/01 Family History Problem Relation Name Age of [...] Grandmother (Maternal) coronary artery disease, age 64 Has patient ever had cancer? History of cancer, type: Breast left, Endometrial Social History Tobacco Use Smoking status: Never Passive exposure: Current Smokeless tobacco: Never Substance Use Topics Alcohol use: No Comment: none Vaping/E-Cigarette Use Vaping/E-Cigarette Use Never User Vaping/E-Cigarette Substances Vaping/E-Cigarette Devices Tobacco/Alcohol screening completed today? Yes Hospital Care: Admissions (within the last year): Not Applicable ER within 30 days: Yes, when: [facility] x 2 10/2023 Does the patient have an Advance Directives/Living Will? Yes Advance Care Planning is important to all adults. Discussed the process of thinking and talking about future healthcare decisions. ACP form and pamphlet given to patient to take home and discuss withfamily. Once form is completed, patient to get a copy to us to scan into their chart. Last Physical Exam: Last physical exam: 11/05/2023 Does patient see primary provider regularly? Yes Does patient see other providers? Yes, Specialist Patient Care Team updated? Yes Review of patient's allergies indicates: Allergen Reactions Buspirone Hcl Edema airway Augmentin [Amoxicillin-Pot Clavulanate] diarrhea Crestor [Rosuvastatin] Restless leg Acyclovir And Related Hives and Other (Please comment) SOB Codeine Nausea/vomiting and Other (Please comment) Patient states she passed out. Salicylates Nausea/vomiting Nose Bleeds. Sulfa Antibiotics Nausea/vomiting Immunization History Administered Date(s) Administered COVID-19 mRNA, LNP-s, No Preserve, 2-Dose Series ([employer]) 04/10/2020, 05/01/2020, 01/23/2021 Covid-19, Mrna, Lnp-s, Pf, Bivalent, 30 Mcg, IM, 12 yrs and above ([employer]) 12/30/2021 Pneumococcal Conjugate Vacc, 13 Valent (Prevnar) 03/20/2015 Pneumococcal Polysaccharide PPV23 (Pneumovax) 03/02/2017 Seasonal Influenza, High Dose, Trivalent, PF, IM (Fluzone HD) 11/24/2023 Seasonal Influenza, PF, 6 M & above, IM , (FluLaval or Fluzone) 03/02/2017, 12/24/2017, 11/13/2019 Seasonal Influenza, Quadrivalent Hd (Fluzone Hd) 11/14/2020, 12/25/2021, 11/19/2022 Seasonal Influenza, Quadrivalent, No Preserve, IM 03/20/2015, 01/13/2016 Seasonal Influenza, Trivalent, Adjuvanted, 65+ YRS, PF, (Fluad) 12/21/2018 TD - Tetanus/Diptheria (ADULT) 04/13/2001 TDAP (age 10 and older)(Boostrix) 08/18/2017 Current Outpatient Medications Medication Sig Dispense Refill Acetaminophen 325 MG Oral Capsule Take by mouth 325 mg 4 times a day as needed . Omeprazole 20 MG Oral Capsule Delayed Release (PriLOSEC) Take 1 Capsule by mouth in the morning and1 Capsule before bedtime. 30 minutes before a meal. 180 Capsule 3 Atorvastatin Calcium 40 MG Oral Tablet (Lipitor) TAKE 1 TABLET BY MOUTH EVERY DAY IN THE MORNING 90Tablet 3 Metoprolol Succinate ER 25 MG Oral Tablet Extended Release 24 Hour (toPROL XL) Take 1 Tablet by mouth in the morning. 90 Tablet 3 LORazepam 1 MG Oral Tablet (Ativan) TAKE 1 TABLET BY MOUTH TWICE A DAY NEEDED FOR ANXIETY 60 Tablet 0 Sertraline HCl 50 MG Oral Tablet (Zoloft) Take 1 Tablet by mouth in the morning. fluticasone (FLONASE) 50 MCG/ACT nasal spray Administer 2 Sprays into each nostril daily. 1 Inhaler5 Aspirin 81 MG Oral Tablet Chewable Take 1 Tablet by mouth in the morning. (Patient not taking: Reported on 11/05/2023) 100 Tablet 3 Meclizine HCl 12.5 MG Oral Tablet (Antivert) Take 1 Tablet by mouth 3 times a day as needed for Dizziness. 30 Tablet 1 No current facility-administered medications for this visit. Patient Active Problem List Diagnosis Dyslipidemia, goal [...] cervical region (HCC) MALIK (generalized anxiety disorder) Medication Compliance: Patient is able to obtain all of her medications? Yes Patient takes medications as prescribed? Yes Patient manages own medications: Yes Patient uses a pill box? No Dental Exam: No Encouraged regular cleaning routine Eye Screening: Yes: Every year Are you having trouble with hearing? No Do you use an assistive device to help your hearing? No Exercise Screening: does not exercise regularly Nutrition Assessment: Eats a balanced diet and Eats three meals a day Pain Screening: Are you having any pain? Yes. Pain Scale: 2 out of 10; Location: Rt knee, When: years, Duration: constant, Aggravating Factors: walking on it, standing up, Relieved by: had shots in it in the past Sleep Screening Tool 'STOP': Do you snore? Yes Do you feel fatigued during the day? Yes Do you wake up feeling like you haven't slept? Yes Have you been told you stop breathing at night? No Do you gasp for air or choke while sleeping? No Have you been told you have Sleep Apnea? No Do you have high blood pressure or are on medication(s) to control high blood pressure? Yes SCORE: If you check YES to two or more questions, make a referral for Obstructive Sleep Apnea Offered sleep apnea evaluation - declined Patient and Caregiver Support System: Patient lives with a spouse Means of Transportation: Family transports Patient lives in One Story - with basement stairs: 12 steps with hand railing Community Resources: Not Applicable, [facility] Food give away every two weeks Functional Status and ADL Skills: Has patient ever had an amputation? No Functional Assessment: 90- Able to carry on normal activity, minor symptoms of disease Ambulation: Patient ambulates with assistive device. Cane Dressing: Gets clothes and dresses without any assistance: Independent Able to move freely in chair or bed including turning over: Independent Repositioning (bed or chair): Not applicable Transfers: Independent Toileting: Goes to bathroom, uses toilet, arranges clothes and returns without any assistance: Independent Toileting: continent of bowel and incontinent of bladder Feeding: Self Bathing: Self; tub, grab bars, shower chair, mat to step out onto Requires none assistance with ADLs. Instrumental ADL's: Shopping: Independent Housekeeping: Independent Handling Finances: Independent DME Vendor Name: Not Applicable Fall Risk Assessment: Can the patient demonstrate that she can stand from a sitting position? Yes Has the patient had a fall within the last 6 months? No Does the patient have a problem with her gait or balance? Yes Does the patient take 4 or more prescription medicines? Yes Does the patient use sedatives or narcotics? Yes Fall Risk Factors Present: Uses more than 4 medications Uses sedatives or narcotics Uses assistive devices Balance or gait disturbances Older than age 70 Tha-Vp-gat-Go Test: Time began at 1100. Patient stood from sitting position and walked approximately 10 feet, returned and sat down. Total time for luu-ab-hzk-go test was 14 seconds. Fmr-Xr-wlq-Go Test completed? Yes Gender Specific Preventative Plan: Health Maintenance Topic Date Due DXA Scan 04/30/2020 COVID-19 Vaccine ( season) 2023 Diabetic Foot Exam 11/26/2023 (Originally 11/20/2023) Zoster Vaccines (1 of 2) 11/26/2023 (Originally 1998) Diabetic Eye Exam 11/27/2023 (Originally 07/24/2023) Hepatitis C Screening 11/27/2023 (Originally 1966) HbA1c 01/28/2024 Albumin/Creatinine Ratio 07/28/2024 GFR 07/28/2024 Mammogram 08/05/2024 Depression Monitoring 11/23/2024 Adult Wellness Visit 11/23/2024 Colorectal Cancer Screening 09/09/2025 DTap/Tdap Vaccines (2 - Td or Tdap) 08/19/2027 Lipid Panel 07/28/2028 Influenza Vaccine (FLU shot) Completed Pneumococcal Vaccine: 65+ Years Completed Hepatitis B Vaccine Aged Out MENINGOCOCCAL (MENACTRA/MENVEO) Aged Out HPV (Gardasil) Vaccine Aged Out Follow Up/ Referrals/Handouts: Depression screening - Completed Functional assessment - Completed Falls Risk screening - Completed, handout given Exercise screening - Encouraged to be as active as able Nutrition assessment -. 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 - pt to continue present medications. Continue to monitor and follow with PCP Laryngopharyngeal reflux disease -Med reconciliation completed and compliance discussed. - pt to continue present medications. Continue to monitor and follow with PCP Palpitations Continue to monitor and follow with Cardiology HTN, goal below 150/90 BP Readings from Last 3 Encounters: 11/24/23 138/70 11/05/23 140/72 10/18/23 138/78 -Med reconciliation completed and compliance discussed. - pt to continue present medications. Continue to monitor and follow with PCP Primary osteoarthritis of right knee Continue to monitor and follow with PCP Patient has been verbally educated on the need or importance of Dexa Scan and Flu Vaccine Dexa scan - patient prefers to discuss with PCP at upcoming visit Flu vaccine given today Discussed importance of Covid Vaccine: pt has received the vaccine Yes, Patient has received Covid vaccines, brought in card, reconciled into Immunization record. Notified most recent dose available at pharmacy. Follow Up: Return in 1 year (on 11/23/2024) for 12 month Subsequent Adult Wellness Visit. | For: 12 month Subsequent Adult Wellness Visit | Check-out note: 12 month Subsequent Adult Wellness Visit Would patient like to schedule next AWV visit? Yes April Belle, RN documented in this encounter Plan of Treatment Upcoming Encounters Date Type Department Care Team (Late st Contact Info) Description 12/02/2023 12:10 PM EDT Office Visit [address] [place] [id number] Lucita Payan, DO [address] [place] [facility] [place] [address] 12/07/2023 9:00 AM EDT Office Visit Cardiology, [facility] [address] [facility] [place] [address] [place] CRNP [address] [place] [address] 05/17/2024 11:30 AM EDT Office Visit Family Practice, [place] [address] [place] [facility] [place] [facility] [place] [id number] Lucita Payan, DO [address] [place] [facility] [place] [address] 11/29/2024 11:00 AM EDT Nurse Only Ancillary Department, [place] [address] [place] [address] [place], Nurse Annual Wellness [address] [place] [address] Scheduled Procedures Name Priority Associated Diagnoses Date/Ti me COLONOSCOPY FLEXIBLE PROXIMAL DIAGNOSTIC Recall Colon cancer screening Health Maintenance Due Date Last Done Comments Cologuard 1993 Sigmoidoscopy 1993 Fecal Occult Blood Test 12/09/2001 12/09/2000 DXA Scan 04/30/2020 05/01/2015 COVID-19 Vaccine ( season) 2023 12/30/2021, 01/23/2021, 12/21/2020, Additional history exists Diabetic Foot Exam 11/26/2023 11/19/2022, 0 09/03/2021, 08/30/2020, Additional history exists Postponed from 11/20/2023 (Patient Declined After Education) Zoster Vaccines (1 of 2) 11/26/2023 Pos tponed from 1998 (Patient Declined After Education) Diabetic Eye Exam 11/27/2023 07/23/2022, , 01/12/2019 Postponed from 07/24/2023 (Patient Declined After Education) Hepatitis C Screening 11/27/2023 Postpo omega from 1966 (Patient Declined After Education) HbA1c 01/28/2024 07/29/2023, 1207/2022, 07/22/2022, Additional history exists Albumin/Creatinine Ratio 07/28/2024 024, 02/27/2022, 12/25/2020, Additional history exists GFR 07/28/2024 07/29/2023, 07/2022, 07/22/2022, Additional history exists Mammogram 08/05/2024 [...] as of this encounter Visit Diagnoses Diagnosis Routine general medical examination at a health care facility- Primary Need for prophylactic vaccination and inoculation against influenza Type 2 diabetes mellitus with diabetic polyneuropathy, unspecified whether assisted insulin use (HCC) Dyslipidemia, goal LDL below 100 Other and unspecified hyperlipidemia Laryngopharyngeal reflux disease Other diseases of larynx Palpitations HTN, goal below 150/90 Primary osteoarthritis of right knee Primary localized osteoarthrosis, lower leg documented in this encounter Care Teams Terminal Computer Operator Relationship Specialty Start Date End Date Lucita Payan DO [address] [place] [address] PCP - General Family Medicine 08/18/17 documented as of this encounter
--- OUTSIDE RECORDS SUMMARY | 2024-05-06 12:25 | External Medical Summary | Summary of Care ---
Author Name Unknown Organization [facility] Address [address] [facility] [address] Phone [phone] Care Team Providers Care Skating Rink Manager Name Role Phone Lucita Payan DO Primary Care Provider Reason for Visit * Reason Comments Follow Up 6 month rtc Encounter Details Date Type Department Care Team (Latest Contact Info) Description 12/07/2023 9:00 AM EDT Office Visit Cardiology, [facility] [address] [facility] [place] [address] [place] CRNP [address] [facility] [address] Palpitations*; PSVT (paroxysmal supraventricular tachycardia) (HCC); SVT (supraventricular tachycardia) (HCC); Nonrheumatic mitral valve regurgitation; HTN, goal below 140/90; LVH (left ventricular hypertrophy); Dyslipidemia, goal LDL below 100 Allergies Active Allergy Reactions Criticality Noted Date [...] 03/20/2015 GENERALIZED ANXIETY DIS 05/25/199702/23 LOC PRIM [id number]-S-[id number] 05/25/199702/23 Dyspnea and respiratory abnormality 05/25/1997 03/20/2015 Overview: ICD-10 update of inactive term Other chest pain 05/25/1997 03/20/2015 Mitral valve disorder 02/22/19852015 Arthritis of hip 03/20/2015 HTN, goal below 140/90 01/07 documented as of this encounter (statuses as of 12/07/2023) Immunizations Name Administration Dates Next Due COVID-19 mRNA, LNP-s, No Pre serve, 2-Dose Series ([employer]) 01/23/2021,05/01/2020,04/10/2020 Covid-19, Mrna, Lnp-s, Pf, B ivalent, [...] Sign Reading Time Taken Comments Blood Pressure 142/70 12/07/2023 9:01 AM EDT Pulse 68 12/07/2023 9:01 AM EDT Temperature - - Respiratory Rate 16 12/07/2023 9:01 AM EDT Oxygen Saturation - - Inhaled Oxygen Concentration - - Weight 83.8 kg (184 lb 12.8 oz) 12/07/2023 9:01 AM EDT Height - - Body Mass Index 32.74 12/02/2023 12:07 PM EDT documented in this encounter Progress Notes * Reinier PepperANIKET Eubanks - 12/07/2023 9:00 AM EDT 12/07/2023 Cardiology Follow Up Primary Mattress Filler: MARIBEL; formerly Dr. Lozada Cardiac Problems: Symptomatic PAC's and short runs of PAT HTN GERD Anxiety HPI: Sharon Angelo is a 72 year old female presents for routine cardiology follow up. Last seen in our office by Neil Clemens PA-C doing well from a cardiac perspective. She presents today feeling well from a cardiac perspective. Endorses palpitations on a rare occasion. "Slightly" worse than the summer. Occur randomly. She feels that the Toprol xl has helped significantly. Reviewed zio monitor with patient. Patient had a bout with diverticulitis, since resolved. BP controlled today. Reports compliance on all medication therapies with no untoward effects. Dealing with bilateral leg pain, thinks it might be her knees and is planning to see ortho for a injection. Discussed likely venous insufficiency. Recommended use of compression stockings. Denies true intermittent claudication symptoms. REVIEW OF SYSTEMS: See HPI for pertinent positives. All others negative other than those noted in the HPI. CONSTITUTIONAL: No change in weight, No weakness, No fatigue and No fevers, No sweats or chills. PULMONARY: No cough, sputum, or hemoptysis, No wheezing, No shortness or breath and No recent change in breathing. CARDIOVASCULAR: No chest pain, No dyspnea on exertion, No edema, No palpitations and No syncope. GASTROINTESTINAL: No abdominal pain, No change in bowel habits, No significant heartburn, No nausea, No vomiting, No diarrhea, No constipation, No blood in stools or black tarry stools. No dysphagia. HEMATOLOGIC: No abnormal bleeding and No bruising. NEUROLOGICAL: Normal balance, No headaches and No weakness. Review of patient's allergies indicates: Allergen Reactions Buspirone Hcl Edema airway Augmentin [Amoxicillin-Pot Clavulanate] diarrhea Crestor [Rosuvastatin] Restless leg Acyclovir And Related Hives and Other (Please comment) SOB Codeine Nausea/vomiting and Other (Please comment) Patient states she passed out. Salicylates Nausea/vomiting Nose Bleeds. Sulfa Antibiotics Nausea/vomiting Current Outpatient Medications Medication Sig Dispense Refill [...] 1 Tablet by mouth in the morning. No current facility-administered medications for this visit. 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 Myopia high myopia Other forms of nystagmus congenital Reflux esophagitis Uterine leiomyoma Family History Problem Relation Name Age of [...] Grandmother (Maternal) coronary artery disease, age 64 Social History Socioeconomic History Marital status: Number of children: 4 Occupational History Occupation: HOMEMAKER Tobacco Use Smoking status: Never Passive exposure: Current Smokeless tobacco: Never Vaping Use Vaping status: Never Used Substance and Sexual Activity Alcohol use: No Comment: none Drug use: No Comment: 1 cup decaf per am Sexual activity: Yes Partners: Male Comment: no problems Social History Narrative job: Retired - homemaker employer: n/a education: 12 service: no hobbies/interests: Writes stories, poetry, decorating transfusions: 2 uints with 1st hip exercise: little diet: Low fat anabaptist/restorationism: [employer]- [place] marital status: children: 4 gc: 8 ggc: 1 pets: Dog- chihuahua exposure to violence/threats/abuse: no things to improve: healthier Social Determinants of Health Financial Resource Strain: Low Risk (11/24/2023) Financial Resource Strain Do you have any trouble paying for your medications, or do you think you might in the future? (Adult - for ages 18 years and over): No Food Insecurity: No Food Insecurity (11/24/2023) Food Insecurity Do you need food for this week? (Adult - for ages 18 years and over): No Transportation Needs: No Transportation Needs (11/24/2023) Transportation Needs Has lack of transportation kept you from medical appointments, meetings, work, or from getting things needed for daily living? Check all that apply. (Adult - for ages 18 years and over): No Social Connections: Socially Integrated (11/24/2023) Social Connections How often do you feel lonely or isolated from those around you? (Adult - for ages 18 years and over): Never Housing Stability: Low Risk (11/24/2023) Housing Stability Do you currently live in a correction or have no steady place to sleep at night? (Adult - for ages 18 years and over): No Are you homeless or worried that you might be in the future? (Adult - for ages 18 years and over): No OBJECTIVE/PHYSICAL EXAMINATION: BP 142/70 | Pulse 68 | Resp 16 | Wt 83.8 kg (184 lb 12.8 oz) | BMI 32.74 kg/m | BSA 1.93 m General: No acute distress. A+Ox3. HEENT: Normocephalic. Atraumatic. PERRL. EOMI. Conjunctiva and sclera clear. NECK: No carotid bruits. No JVD. Carotid upstrokes are brisk. Heart: RRR. S1 and S2 noted. No murmur. No rubs or gallops. PMI non displaced. Lungs: Clear to auscultation. No wheezes.No rhonchi. No rales. Abdomen: Normal bowel sounds. Soft. Nontender. No masses or organomegaly. No abdominal bruits. Extremities: No edema. No clubbing or cyanosis. Pulses: radial=2/4, posterior tibial=2/4, dorsalis pedis = 2/4. NEURO: No focal deficits. PSYCH: Appropriate affect and insight. DATA Labs & Imaging Reviewed Below: Echo 07/23/23 The examination is adequate to evaluate the referral indication. The left ventricular wall motion is normal. The qualitative LV ejection fraction is 60-64% (normal). The left atrium is moderately enlarged (42-48 ml/m^2). The left ventricular diastolic function is moderately abnormal (grade II). Mild mitral regurgitation is present. There is no evidence of pulmonary hypertension. [facility] 06/2023 Patient had a min HR of 46 bpm, max HR of 148 bpm, and avg HR of 59 bpm. Predominant underlying rhythm was Sinus Rhythm. 53 Supraventricular Tachycardia runs occurred, the run with the fastest interval lasting 4 beats with a max rate of 148 bpm, the longest lasting 17 beats with an avg rate of 104 bpm. Some episodes of Supraventricular Tachycardia may be possible Atrial Tachycardia with variable block. Isolated SVEs were occasional (1.5%, 10257), SVE Couplets were rare (<1.0%, 334), and SVE Triplets were rare (<1.0%, 49). Isolated VEs were rare (<1.0%), and no VE Couplets or VE Triplets were present. Majority of symptomatic events correlate with sensed supraventricular ectopy. Occasionally, symptoms correlate with sinus bradycardia and normal sinus rhythm, heart rate ranging from 51 - 74 bpm. [facility] 08/2022 Patient had a min HR of 46 bpm, max HR of 136 bpm, and avg HR of 58 bpm. Predominant underlying rhythm was Sinus Rhythm. 30 Supraventricular Tachycardia runs occurred, the run with the fastest interval lasting 14 beats with a max rate of 136 bpm, the longest lasting 16 beats with an avg rate of 111 bpm. Supraventricular Tachycardia was detected within +/- 45 seconds of symptomatic patient event(s). Some episodes of Supraventricular Tachycardia may be possible Atrial Tachycardia with variable block. Isolated SVEs were occasional (1.1%, 5427), SVE Couplets were rare (<1.0%, 75), and SVE Triplets were rare (<1.0%, 18). Isolated VEs were rare (<1.0%), and no VE Couplets or VE Triplets were present. 31 patient triggered events and 29 diary events were submitted for review. The majority of the patient triggered events correlated with sinus rhythm with premature atrial contractions. Two events correlated with brief episodes of SVT. ASSESSMENT/PLAN: 72 year old year old female 1. Palpitations 2. PSVT (paroxysmal supraventricular tachycardia) (HCC) 3. SVT (supraventricular tachycardia) (HCC) -patient reports improvement since starting Toprol-XL rare occurrences of intermittent palpitations. She denies that they are affecting her overall functional capacity. She is to notify us if her palpitations would become worse and then have consideration for increase in beta-domo therapy 4. Nonrheumatic mitral valve regurgitation -stable on most recent echocardiogram plan for repeat echocardiogram at 1 year interval Denies any changes or decline in her functional capacity 5. HTN, goal below 140/90 6. LVH (left ventricular hypertrophy) -high end of target today -continue Toprol-XL at current dose -if blood pressures would remain elevated consideration for adding additional antihypertensive therapy with Sergio-I or ARB 7. Dyslipidemia, goal LDL below 100 -recommend yearly lipid panel Continue atorvastatin 40 mg daily Would recommend the patient restart aspirin 81 mg daily she was on prior to her diverticulitis bout. DISPOSITION: Follow up 6 months with MD or if symptoms worsen/fail to improve. All questions were answered to the patients satisfaction. Patient advised to report to ED with any and all emergencies. The patient agrees to the above plan and will call with additional questions or concerns. ANIKET Chandler [facility], [facility]IE [place] [address] I spent a total of 35 minutes on the date of service in preparation, delivery, and documentation ofthe care provided to Sharon Angelo excluding any time spent in the performance of separately billed services. This chart was completed in part utilizing [employer] Speech Voice Recognition Software. Grammatical errors, random word insertions, pronoun errors, and incomplete sentences are an occasional consequence of this system due to software limitations, ambient noise, and hardware issues. Any formal questions or concerns about the content, text, or information contained within the body of this dictation should be directly addressed to the provider for clarification. documented in this encounter Nursing Notes * Kaitlyn Pickens CMA - 12/07/2023 8:55 AM EDT Examination Room: 7 Name: Sharon Angelo Date of : (1950). Reason for Visit: 6 month rtc Interim Hospitalization(s): [facility] October for diverticulitis and GERD, chest pain but it was GI Problems/Concerns: Metoprolol succ has been working very well for her, still has some palps but they are not as long or severe. Chest Pain/SOB: denies [facility] Discussed: Yes My [facility] is a way you can talk to your provider online through e-mail. Would you like to sign up? I can activate it for you? DECLINES Patient was instructed to not get up on the exam table until directed and assisted by their provider; patient is to remain seated in the chair/ wheelchair/ exam table for fall prevention and safety reasons. Patient is aware to have assistance to step down off exam table with personnel. Patient voiced full comprehension of instructions. documented in this encounter Plan of Treatment Upcoming Encounters Date Type Department Care Team (Late st Contact Info) Description 12/27/2023 9:30 AM EST Office Visit Orthopaedics [address] [place] [address] Keyon Teran PA-C [address] [place] [address] 01/06/2024 3:30 PM EST Imaging Radiology, [address], [place] [address] 05/17/2024 11:30 AM EDT [facility] [address] [facility] [id number] Lucita Payan [facility] [address] [facility] [address] 07/18/2024 10:30 AM EDT Office Visit Cardiology, [facility] [address] [place] [address] Esvin Payan DO [facility] [place] [address] 11/29/2024 11:00 AM EDT Nurse Only Ancillary Department, [facility] [address] [facility] [address] May, Nurse Annual Wellness [address] [place] [address] Scheduled Procedures Name Priority Associated Diagnoses Date/Ti [...] (Patient Declined After Education) HbA1c 01/28/2024 07/29/2023, 120 07/2022, 07/22/2022, Additional history exists Albumin/Creatinine Ratio 07/28/2024 024, 02/27/2022, 12/25/2020, Additional history exists GFR 07/28/2024 07/29/2023, 120 07/2022, 07/22/2022, Additional history exists Mammogram 08/05/2024 [...] as of this encounter Visit Diagnoses Diagnosis Palpitations- Primary PSVT (paroxysmal supraventricular tachycardia) (HCC) Paroxysmal supraventricular tachycardia SVT (supraventricular tachycardia) (HCC) Other specified cardiac dysrhythmias Nonrheumatic mitral valve regurgitation HTN, goal below 140/90 Unspecified essential hypertension LVH (left ventricular hypertrophy) Cardiomegaly Dyslipidemia, goal LDL below 100 Other and unspecified hyperlipidemia documented in this encounter Care Teams Skating Rink Manager Relationship Specialty Start Date End Date Lucita Payan DO [address] [place] [address] PCP - General Family Medicine 08/18/17 documented as of this encounter
--- OUTSIDE RECORDS SUMMARY | 2024-05-06 12:25 | External Medical Summary | Summary of Care ---
Author Name Unknown Organization [facility] Address [address] [place] [address] Phone [phone] Care Team Providers Care [employer] Roofer Name Role Phone Lucita Payan DO Primary Care Provider [phone] Reason for Referral * Evaluate & Treat - Unlimited Visits (Within 10 days (routine)) - Authorized Specialty Diagnoses / Procedures Referred By Noelle nava Referred To Contact Orthopaedic Surgery / Orthopedics Diagnoses Primary osteoarthritis of both knees Lucita Payan DO [address] [place] [address] Referral ID Status Reason Start Date Expiration Date Visits Requested Visits Authorized [id number] Authorized Specialty Services Required [phone] Question Answer Referral Priority Within 10 days (routine) Where should this appointment be scheduled? [facility] What body part is the patient being seen for? Thigh/Knee What condition is the patient being seen for? Sprain/Strain/Tear/Other * Ancillary Services (Within 10 days (routine)) - Authorized Specialty Diagnoses / Procedures Referred By Noelle nava Referred To Contact Gastroenterology Diagnoses Epigastric pain Lucita Payan DO [address] [place] [address] Referral ID Status Reason Start Date Expiration Date Visits Requested Visits Authorized [id number] Authorized Ancillary Services Required [phone] Question Answer Referral Priority Within 10 days (routine) Where should this appointment be scheduled? [facility] Comments Upper Endoscopy ASGE Guidelines Upper abdominal symptoms that persist despite an appropriate trial of therapy ADDITIONAL INFORMATION 1. Is the patient on Coumadin? No 2. Is the patient on Pradaxa? No Reason for Visit * Reason Comments Follow Up Encounter Details Date Type Department Care Team (Latest Contact Info) Description 12/02/2023 12:10 PM EDT Office Visit [facility] [address] [place] [address] Lucita Payan DO [address] [place] [address] Epigastric pain*; Postmenopausal status, age-related; Primary osteoarthritis of both knees Allergies Active Allergy Reactions Criticality Noted Date Comments Acyclovir And Related Hives,Other (Pleas e comment) Low 07/10/2003 SOB Amoxicillin-Pot Clavulanate 07/22/2022 diarrhea Buspirone Hcl Edema airway High 05/25/1997 Codeine Nausea/vomiting,Othe r (Please comment) Low 05/26/2012 Patient states she passed out. Rosuvastatin 08/26/2021 Restless leg Salicylates Nausea/vomiting Low 05/25/1997 Nose Bleeds. Sulfa Antibiotics Nausea/vomiting Low 06/23/2002 documented as of this encounter (statuses as of 12/02/2023) Medications Medication Sig Dispensed Refills Start Date [...] Active Meclizine HCl 12.5 MG Oral Tablet (Antivert)Indications [...] 4 Active LORazepam 1 MG Oral Tablet (Ativan)Indications:D epression with anxiety TAKE 1 TABLET BY MOUTH TWICE A DAY NEEDED FOR ANXIETY 60 Tablet 4 Active Sertraline HCl 50 MG Oral Tablet (Zoloft) Take 1 Tablet by mouth in the morning. Active Aspirin 81 MG Oral Tablet Chewable Take 1 Tablet by mouth in the morning. 100 Tablet 3 4 12/02/19 24 Discontinu ed(Medicat ion List Clean Up) documented as of this encounter (statuses as of 12/02/2023) Active Problems Problem Noted Date Diagnosed Date [...] as of this encounter (statuses as of 12/02/2023) Resolved Problems Problem Noted Date Diagnosed Date [...] OBESITY, UNSPECIFIED 04/24/2002 016 Mixed dyslipidemia 07/07/2000 12/200 9 Overview: Per Lipid Taxonomy. Palpitations 05/25/1997 03/20/2015 GENERALIZED ANXIETY DIS 05/25/199702/23 LOC PRIM [id number] 05/25/199702/23 Dyspnea and respiratory abnormality 05/25/1997 03/20/2015 Overview: ICD-10 update of inactive term Other chest pain 05/25/1997 03/20/2015 Mitral valve disorder 02/22/19852015 Arthritis of hip 03/20/2015 HTN, goal below 140/90 01/07 documented as of this encounter (statuses as of 12/02/2023) Immunizations Name Administration Dates Next Due COVID-19 mRNA, LNP-s, No Pre serve, 2-Dose Series (1spire) 01/23/2021,05/01/2020,04/10/2020 Covid-19, Mrna, Lnp-s, Pf, B ivalent, [...] Sign Reading Time Taken Comments Blood Pressure 138/64 12/02/2023 12:07 PM EDT Pulse 62 12/02/2023 12:07 PM EDT Temperature 36.6 C (97.8 F) 12/02/2023 1 2:07 PM EDT Respiratory Rate 18 12/02/2023 12:0 7 PM EDT Oxygen Saturation 98% 12/02/2023 12: 07 PM EDT Inhaled Oxygen Concentration - - Weight 83.4 kg (183 lb 12.8 oz) 024 12:07 PM EDT Height 160 cm (5' 3") 12/02/2023 12:07 PM EDT Body Mass Index 32.56 12/02/2023 12:07 PM EDT documented in this encounter Progress Notes * Lucita Payan, DO - 12/02/2023 12:26 PM EDT Subjective: Sharon Angelo is a 72 year old female. Chief Complaint Patient presents with Follow Up HPI: 72 yr old female here today for a follow-up. I saw her a few weeks back for worsening reflux and she was on just 1 time a day prilosec and then I added her to 2 per day. This was in the setting of being on cipro and flagyl Still ongoing discomfort after eating in the epigastric area the the RUQ as well. She does not have a gallbladder. No blood in her stool. At times dark stools. She wonders about an hiatal hernia. She has a lot of gas often. Having bilateral knee pain. In the past had seen [facility] DR Carroll and had injections in the past. PHM: Patient Active Problem List Diagnosis Dyslipidemia, goal [...] No current facility-administered medications for this visit. Review of patient's allergies indicates: Allergen Reactions Buspirone Hcl Edema airway Augmentin [Amoxicillin-Pot Clavulanate] diarrhea Crestor [Rosuvastatin] Restless leg Acyclovir And Related Hives and Other (Please comment) SOB Codeine Nausea/vomiting and Other (Please comment) Patient states she passed out. Salicylates Nausea/vomiting Nose Bleeds. Sulfa Antibiotics Nausea/vomiting Objective: BP 138/64 | Pulse 62 | Temp 36.6 C (97.8 F) (Tympanic) | Resp 18 | Ht 1.6 m (5' 3") | Wt 83.4 kg (183 lb 12.8 oz) | SpO2 98% | BMI 32.56 kg/m | BSA 1.93 m Physical Exam: General: alert, healthy, and no distress Heart: regular rate & rhythm, no murmur, and no gallops Lungs: chest symmetric with normal AP diameter, no chest deformities noted, no chest wall tenderness, lungs clear to auscultation Abdomen: abdomen soft, non-tender, normal bowel sounds, and no masses or organomegaly ASSESSMENT/PLAN: Epigastric pain (Primary)-cont the prilosec bid, and to use gasx before meals Ordered scope - UPPER ENDOSCOPY GI REFERRAL OP Postmenopausal status, age-related - DEXA SCAN/BONE MINERAL AXIAL; Future; Expected date: 12/02/2023 Primary osteoarthritis of both knees - ORTHOPAEDICS REFERRAL OP Check-out note: Scope pls arrange EGD, and needs to see orthopedics for her knee OA Lucita Payan DO documented in this encounter Nursing Notes * Yudith Jj LPN - 12/02/2023 12:07 PM EDT The patient has been properly identified by confirmation of name and date of . Chief Complaint Patient presents with Follow Up Patient states she us still having pain under right breast/abdomen Needs order for Dexa scan documented in this encounter Plan of Treatment Upcoming Encounters Date Type Department Care Team (Late st Contact Info) Description 12/07/2023 9:00 AM EDT Office Visit Cardiology, [facility] [address] [facility] [place] [address] [place] CRNP [address] [facility] [place] [address] 12/27/2023 9:30 AM EST Office Visit Orthopaedics [facility] [address] [facility] [place] [address] [place] Teran PA-C [address] [facility] [place] [address] 01/06/2024 3:30 PM EST Imaging Radiology, [address], [place] [address] 05/17/2024 11:30 AM EDT Office Visit Family Practice, [facility] [address] [place] [facility] [place] [id number] Lucita Payan, [address] [place] [address] 11/29/2024 11:00 AM EDT Nurse Only Ancillary Department, [facility] [address] [place] [address] [facility], [facility] [address] [place] [address] Scheduled Orders Name Type Priority Associated Diagnoses Orde r Schedule DEXA SCAN/BONE MINERAL AXIAL Medical Imaging Routine Postmenopausal status, age-related Expected: 12/02/2023 (Approximate), Expires: 01/01/2025 Scheduled Procedures Name Priority Associated Diagnoses Date/Ti me COLONOSCOPY FLEXIBLE PROXIMAL DIAGNOSTIC Recall Colon cancer screening Scheduled Referrals Name Type Priority Associated Diagnoses Orde r Schedule UPPER ENDOSCOPY GI REFERRAL OP Referral Within 10 days (routine) Epigastric pain Ordered: 12/02/2023 ORTHOPAEDICS REFERRAL OP Referral Within 10 days (routine) Primary osteoarthritis of both knees Ordered: 12/02/2023 Health Maintenance Due Date Last Done Comments Cologuard 1993 Sigmoidoscopy 1993 Fecal Occult Blood Test 12/09/2001 12/09/2000 DXA Scan 04/30/2020 05/01/2015 COVID-19 Vaccine ( season) 2023 12/30/2021, 01/23/2021, 12/21/2020, Additional history exists Postponed from 10/24/2023 (Patient Declined After Education) Diabetic Eye Exam 01/01/2024 07/23/2022, , 01/12/2019 [...] as of this encounter Visit Diagnoses Diagnosis Epigastric pain- Primary Abdominal pain, epigastric Postmenopausal status, age-related Asymptomatic postmenopausal status (age-related) (natural) Primary osteoarthritis of both knees Primary localized osteoarthrosis, lower leg documented in this encounter Care Teams [employer] Roofer Relationship Specialty Start Date End Date Lucita Payan DO [address] [place] [address] PCP - General Family Medicine 08/18/17 documented as of this encounter
--- NOTE | 2024-05-06 12:36 | Emergency Department Note ---
Impression & Plan Atrial fibrillation with rapid ventricular response, Heart palpitations, URI due to influenza A virus, Elevated troponin I level ED Provider Note NAME: GUILLERMINA CLINTON AGE: 73 SEX: F : 1950 ARRIVES VIA: Walk-In INFORMANT: Patient, ED PROVIDER(S): Nitesh Delgado DO CHIEF COMPLAINT: Palpitations HPI: The patient is a 73-year-old female who presented to the emergency department for palpitations. She states that she has a history of paroxysmal atrial fibrillation. The patient denies having any nausea or vomiting. She has had flu symptoms over the course the last 3 to 4 days. The patient came to the emergency department today because of ongoing symptoms. She has been noticing that her heart rate has been faster than usual. She denies having any lower extremity swelling but does complain of some shortness of breath with exertion. ROS: See above HPI for pertinent positives & negatives. A total of 10 systems reviewed and were otherwise negative. PAST MEDICAL HISTORY: See Below PAST SURGICAL HISTORY: See Below FAMILY HISTORY: See Below SOCIAL HISTORY: See Below HOME MEDICATIONS: See Below ALLERGIES: See Below VITALS: See Below PHYSICAL EXAMINATION: GENERAL: Patient is awake alert in no acute distress patient is resting comfortably and showing no signs of anxiety EYES: The conjunctivae are clear. The pupils are round and reactive. EARS, NOSE, MOUTH AND THROAT: The nose is without any evidence of any deformity. NECK: The neck is nontender and supple. RESPIRATORY: Normal respiratory effort is noted there is no evidence of wheezing rhonchi or rales CARDIOVASCULAR: Irregular heart sounds were noted to auscultation. There is no definite murmur. GASTROINTESTINAL: The abdomen is soft. Abdomen is nontender. MUSCULOSKELETAL/EXTREMITIES: There is no evidence of gross deformity full range of motion is noted in the hips and shoulders. SKIN: There is no obvious evidence of any rash. There are no petechiae, pallor or cyanosis noted. NEUROLOGIC: Patient is awake alert and oriented x3 MEDICAL DECISION MAKING: The patient is a 73-year-old female who presented to the emergency department for an evaluation of palpitations and not feeling well. She was recently diagnosed with influenza A. Her significant other was admitted to our facility because of influenza A today. The patient was also started to have palpitations. She has a history of paroxysmal atrial fibrillation. At this time she only takes a beta-domo. She takes no blood thinners. The patient was treated with IV fluids and IV magnesium in the emergency department. Her heart rate improved. I discussed the patient's laboratory and radiographic studies with her. She was found to have an elevated troponin although there are no dynamic changes noted. Given her symptoms as well as her elevated troponin I do feel that she would be a better candidate for inpatient management. For this reason I discussed her condition with the on-call [facility] hospitalist. Triage Nursing notes reviewed. Prior medical records reviewed Vital Signs: reviewed and remarkable for initial tachycardia Differential diagnosis: Premature contractions, electrolyte abnormality, cardiac dysrhythmia, thyroid dysfunction, pulmonary embolism, infection, gastrointestinal, as well as other pathologies. ER treatment provided: See below Diagnostics interpreted by me: ECG: EKG was obtained in the emergency department. My interpretation is atrial fibrillation at 110 bpm. No PVCs were noted. Right bundle branch block pattern was appreciated. This was compared to a tracing from November 03, 2023. Sinus rhythm has been replaced with atrial fibrillation. Otherwise the right bundle branch block pattern is not new. A second EKG was obtained in the emergency department. My interpretation is sinus rhythm at 81 bpm. There were no PVCs noted. This appears similar in QRST morphology to the initial tracing otherwise the atrial fibrillation appears to be replaced by sinus. Cardiac Monitoring: An order was placed for continuous cardiac monitoring. The monitor shows a rate of 81 bpm with sinus rhythm. Laboratory studies: As stated above and show below. Imaging studies: See below. Radiographic imaging was reviewed by myself Consultation(s): I discussed this case with Dr. Pressley who is on-call for the [facility] Hospitalist group. Past Med/Surg History Problem List (Updated 05/06/24 @ 15:38 by Nitesh Delgado DO) Elevated troponin I level (Acute) URI due to influenza A virus (Acute) Atrial fibrillation with rapid ventricular response (Acute) Status post reverse arthroplasty of right shoulder (~06/2021) Encounter for pre-operative examination PAC (premature atrial contraction) (Acute) Heart palpitations (Acute) Heart palpitations (Acute) Cholecystitis with cholelithiasis Near syncope (Acute) GERD (gastroesophageal reflux disease) (Chronic) Chest pain (Acute) Dizziness (Acute) Pre-syncope (Acute 02/04/13) Constipation (Acute) Abdominal pain (Acute) Benign paroxysmal positional vertigo (Chronic 11/04/12) Ongoing and chronic issue "Vestibular instability and balance problems" per cardio S records Has been to vestibular center- felt vertigo due to floaters in eyes Breast cancer (Chronic) Dizziness (Chronic) PVC (premature ventricular contraction) (Chronic) Medical History Deviated nasal septum History of COVID-19 Oct 2020 > very mild symptoms Stress incontinence GERD (gastroesophageal reflux disease) Controlled and stable with meds Borderline diabetes Diet control Endometrial cancer 2009 > hysterectomy - no chemo and XRT Breast cancer 2001 > lumpectomy left > radiation Denies left UE restriction Depression Anxiety Mitral regurgitation Mild per 04/2021 ECHO Shortness of breath Mostly just happens after taking meds Heart palpitations Follows with [facility] Secondary to symptomatic PACs and short runs of PAT Also history PVCs Hypertension Hyperlipidemia Surgical History History of shoulder surgery Hx of vitrectomy History of cataract surgery bilat Hx of oral surgery History of dilatation and curettage History of bilateral tubal ligation History of total hip arthroplasty bilat History of colonoscopy History of cholecystectomy Hx of hysterectomy History of lumpectomy of left breast Family History Uncle Diabetes Grandmother Colon cancer Mother Cerebral aneurysm Cancer Father Hearing loss Other Asthma Hypertension No family history of adverse response to anesthesia No family history of bleeding disorder Stroke Social History Smoking Status: Never smoker Second Hand Exposure: No; Do You Dip or Chew Tobacco: No; Hx Alcohol Use: No Hx Substance Use: No Preferred Language: Bermudian Communication Ability: Effective Phone Operator Required: No Beliefs That Will Affect Care: None Current Living Situation: Spouse Feels Safe at Home: Yes Assistive Devices: Cane Allergies Allergies Allergy/AdvReac Type Severity Reaction Status Date / Time buspirone Allergy Intermediate Rash Verified 11/21/21 16:18 aspirin Allergy Unknown GI upset Verified 11/21/21 16:18 and epistaxis clavulanic acid Allergy Unknown ALLERGY TO Verified 11/21/21 16:18 "BETA-LACTAMASE" INHIBITORS Macrolide Antibiotics Allergy Unknown Rash Verified 11/21/21 16:18 sulbactam Allergy Unknown ALLERGY TO Verified 11/21/21 16:18 "BETA-LACTAMASE INHIBITORS" Sulfa (Sulfonamide Allergy Unknown Unknown Verified 11/21/21 16:18 Antibiotics) codeine AdvReac Mild SWEATS,ARSENIO Verified 11/21/21 16:18 TS Home Meds Home Medications Medication Instructions Recorded Confirmed acetaminophen 325 mg capsule 325 mg PO QID PRN Pain 04/16/21 05/06/24 (Tylenol) lorazepam 1 mg tablet 0.5 mg PO BID 04/16/21 05/06/24 omeprazole 20 mg capsule,delayed 20 mg PO QAM 04/16/21 05/06/24 release sertraline 25 mg tablet (Zoloft) 25 mg PO HS 04/16/21 05/06/24 atorvastatin 20 mg tablet 40 mg PO HS 06/10/21 05/06/24 lorazepam 1 mg tablet 1 mg PO HS 06/10/21 05/06/24 meclizine 12.5 mg tablet 12.5 mg PO TID PRN Dizziness 10/26/23 05/06/24 metoprolol succinate 25 mg 25 mg PO QAM 10/26/23 05/06/24 tablet,extended release 24 hr albuterol sulfate 90 mcg/actuation 2 puff inhalation Q4H PRN sob 05/06/24 05/06/24 aerosol inhaler fluticasone propionate 50 1 spray intranasal DIRECTED PRN 05/06/24 05/06/24 mcg/actuation nasal Other spray,suspension ondansetron HCl 4 mg tablet 4 mg PO Q8H PRN Nausea 05/06/24 05/06/24 Results & Data (ED) Vital Signs Vital Signs - 24 hr 05/06/24 12:17 05/06/24 12:42 05/06/24 14:16 Temperature 36.1 C L Temperature Source Temporal Artery Scan Pulse Rate 110 H 105 H Pulse Rate [Right Brachial] 81 Pulse Rhythm [Right Brachial] Regular Pulse Strength [Right Brachial] Normal Respiratory Rate 22 18 Respiratory Effort / Characteristics Non-Labored Respiratory Depth Normal Respiratory Pattern Regular Blood Pressure 150/79 H Blood Pressure [Right Arm] 140/82 Blood Pressure Mean 102 Blood Pressure Mean [Right Arm] 101 Blood Pressure Position [Right Arm] Lying Pulse Oximetry 94 97 Oxygen Delivery Method Room Air Room Air Sepsis Recent Fever Within 48 Hours No Sepsis New/Unexplained Change in Mental Status N/A Sepsis Action Taken by Nursing No Action Required Home Medications Current Medication List: was personally reviewed by me Laboratory Data Attestation: I reviewed the patient's lab results. 05/06/24 13:07 05/06/24 13:07 Lab Results 05/06/24 05/06/24 05/06/24 Range/Units 12:36 13:07 14:52 WBC 3.40 L (4.8-10.8) K/ul RBC 4.98 (4.20-5.40) M/uL Hgb 14.2 (12.0-16.0) g/dl Hct 40.9 (37.0-47.0) % MCV 82.1 (80.0-100.0) fL MCH 28.5 (25.0-34.0) pg MCHC 34.7 (32.0-36.0) g/dL RDW Std Deviation 38.4 (36.4-46.3) fL RDW Coeff of Daniele 12.8 (11.5-14.5) % Plt Count 191 (130-400) K/uL MPV 10.9 (9.4-12.4) fL Immature Gran % (Auto) 0.3 % Neut % (Auto) 50.0 % Lymph % (Auto) 40.6 % [place] % (Auto) 8.2 % Eos % (Auto) 0.6 % Baso % (Auto) 0.3 % Neut # (Auto) 1.70 (1.40-6.50) K/uL Lymph # (Auto) 1.38 (1.20-3.40) K/uL [place] # (Auto) 0.28 (0.11-0.59) K/uL Eos # (Auto) 0.02 (0.00-0.50) K/uL Baso # (Auto) 0.01 (0.00-0.20) K/uL Immature Gran # (Auto) 0.01 (0.01-0.20) K/uL PT 10.2 (9.0-12.0) Seconds INR 0.9 (0.9-1.1) APTT 24 (21-31) Seconds PTT Ratio 0.9 Sodium 136 (136-145) mmol/L Potassium 3.8 (3.5-5.1) mmol/L Chloride 102 (98-107) mmol/L Carbon Dioxide 27 (21-32) mmol/L Anion Gap 7 (3-11) BUN 18 (6-23) mg/dl Creatinine 0.75 (0.6-1.2) mg/dl Est Cr Clr Drug Dosing 66.6 ml/min eGFR 82.97 BUN/Creatinine Ratio 24.0 H (10-20) Glucose 107 H (70-99(Fasting)) mg/dl Calcium 9.0 (8.6-10.3) mg/dl Magnesium 1.7 (1.7-2.4) mg/dl Total Bilirubin 0.5 (0.2-1.0) mg/dl AST 30 (13-39) U/L ALT 23 (7-52) U/L Alkaline Phosphatase 92 (34-104) U/L Troponin I High Sens 25.5 H 23.8 H (0-14) pg/ml Total Protein 7.0 (6.0-8.3) gm/dl Albumin 4.0 (3.4-5.0) gm/dl Globulin 3.0 (2.5-4.0) gm/dl Albumin/Globulin Ratio 1.3 (0.9-2) TSH 2.461 (0.300-4.500) uIu/ml Urine Color Yellow Urine Appearance Clear (Clear) Urine pH 6.5 (4.5-7.5) Ur Specific [place] 1.012 (1.000-1.030) Urine Protein Negative (Negative) Urine Glucose (UA) Negative (Negative) Urine Ketones Negative (Negative) Urine Blood Negative (Negative) Urine Nitrite Negative (Negative) Urine Bilirubin Negative (Negative) Urine Urobilinogen Negative (Negative) Ur Leukocyte Esterase Negative (Negative) Administered Medications Discontinued Medications Sodium Chloride (Nss) 500 mls @ 999 mls/hr IV .Q31M ONE Stop: 05/06/24 13:00 Last Infusion: 05/06/24 14:13 Dose: Infused Documented By: Admin: 05/06/24 13:29 Dose: 999 mls/hr Documented By: KATHYA Magnesium Sulfate/Dextrose (Magnesium Sulfate / D5w) 1 gm in 100 mls @ 100 mls/hr IV NOW STA Stop: 05/06/24 13:29 Last Infusion: 05/06/24 14:49 Dose: Infused Documented By: Admin: 05/06/24 13:28 Dose: 100 mls/hr Documented By: KATHYA Imaging Data Attestation: I personally reviewed and interpreted this imaging study as follows: My Impression: 1 view chest x-ray was obtained in the emergency department. My interpretation is no free air or definite filtrate, final report pending. Discharge Plan Visit Data Chief Complaint: Arrhythmia/Palpitations Stated Complaint: IRREGULAR HEART RATE, FLU + ED Provider: Nitesh Delgado Discharge Problem: Atrial fibrillation with rapid ventricular response, Heart palpitations, URI due to influenza A virus, Elevated troponin I level Patient Disposition: Being Evaluated by Hospitalist Forms Stand Alone Forms: My [facility] Prescriptions Prescriptions: No Action lorazepam 1 mg tablet 0.5 mg PO BID omeprazole 20 mg capsule,delayed release(DR/EC) 20 mg PO QAM sertraline [Zoloft] 25 mg tablet 25 mg PO HS acetaminophen [Tylenol] 325 mg capsule 325 mg PO QID PRN (Reason: Pain) atorvastatin 20 mg Tablet 40 mg PO HS lorazepam 1 mg Tablet 1 mg PO HS meclizine 12.5 mg tablet 12.5 mg PO TID PRN (Reason: Dizziness) metoprolol succinate 25 mg tablet extended release 24 hr 25 mg PO QAM ondansetron HCl 4 mg tablet 4 mg PO Q8H PRN (Reason: Nausea) albuterol sulfate 90 mcg/actuation HFA aerosol inhaler 2 puff INHALATION Q4H PRN (Reason: sob) fluticasone propionate [Flonase] 50 mcg/actuation [place],Suspension 1 spray INTRANASAL DIRECTED PRN (Reason: Other) Rx Instructions: administer into each nostril Referrals Referrals: Lucita Payan DO [Primary Care Provider] -
[2024-05-06 13:22] LABS: Appearance Urine Clear (Clear); Bilirubin Urine Negative (Negative); Blood Urine Negative (Negative); Color Urine Yellow; Glucose Urine UA Negative (Negative); Ketones Urine Negative (Negative); Leukocyte Esterase Urine Negative (Negative); Nitrite Urine Negative (Negative); Protein Urine Negative (Negative); Specific Gravity Urine 1.012 (1.000-1.030); Urobilinogen Urine Negative (Negative); pH Urine 6.5 (4.5-7.5)
[2024-05-06] MEDS: MAGNESIUM SULFATE / D5W 1 GM/100 ML BAG IV STA (13:28)
[2024-05-06] MEDS: SODIUM CHLORIDE 0.9% 500 ML IV ONE (13:29)
[2024-05-06 13:33] LABS: Basophils # (auto) 0.01 K/uL (0.00-0.20); Basophils % (auto) 0.3 %; Eosinophils # (auto) 0.02 K/uL (0.00-0.50); Eosinophils % (auto) 0.6 %; Hematocrit (blood only) 40.9 % (37.0-47.0); Hemoglobin 14.2 g/dl (12.0-16.0); Immature Granulocytes # (auto) 0.01 K/uL (0.01-0.20); Immature Granulocytes % (auto) 0.3 %; Lymphocytes # (auto) 1.38 K/uL (1.20-3.40); Lymphocytes % (auto) 40.6 %; Mean Corpuscular Hemoglobin 28.5 pg (25.0-34.0); Mean Corpuscular Hgb Conc 34.7 g/dL (32.0-36.0); Mean Corpuscular Volume 82.1 fL (80.0-100.0); Mean Platelet Volume 10.9 fL (9.4-12.4); Monocytes # (auto) 0.28 K/uL (0.11-0.59); Monocytes % (auto) 8.2 %; Platelet Count 191 K/uL (130-400); RDW Coefficient of Variation 12.8 % (11.5-14.5); RDW Standard Deviation 38.4 fL (36.4-46.3); Red Blood Count 4.98 M/uL (4.20-5.40)
[2024-05-06 13:39] LABS: Albumin Globulin Ratio 1.3 (0.9-2); Bilirubin,Total 0.5 mg/dl (0.2-1.0); Creatinine Clr Calc Pharmacy 66.6 ml/min; Magnesium 1.7 mg/dl (1.7-2.4); Potassium 3.8 mmol/L (3.5-5.1)
[2024-05-06 13:46] LABS: Troponin I High Sensitivity 25.5 pg/ml (0-14)
[2024-05-06 13:55] LABS: Thyroid Stimulating Hormone 2.461 uIu/ml (0.300-4.500)
[2024-05-06 13:56] LABS: INR 0.9 (0.9-1.1); Partial Thromboplastin Ratio 0.9; Partial Thromboplastin Time 24 Seconds (21-31); Prothrombin Time 10.2 Seconds (9.0-12.0)
[2024-05-06] MEDS: POTASSIUM CHLORIDE CRTAB 20 MEQ TABCR PO STA (16:27)
[2024-05-06 16:38] LABS: Chol HDL Ratio 3.2 (0-5)
[2024-05-06 17:29] LABS: Estimated Average Glucose 117 mg/dl; Hemoglobin A1C 5.7 % (4.5-5.6)
--- NOTE | 2024-05-06 17:38 | XRay Report ---
EXAM: XR chest 1V portable CLINICAL HISTORY: Dysrhythmia. TECHNIQUE: An X-ray image of the chest is obtained in PA projection. COMPARISON: Prior study dated 11/03/2023. FINDINGS: Pulmonary Parenchyma: Left midlung zone dense well defined small nodule 3mm in diameter. No evidence of consolidation, collapse, or focal opacities. No evidence of pleural effusion or pleural thickening. Heart and Mediastinum: Mildly enlarged cardiac shadow. No mediastinal widening or masses. No hilar or mediastinal lymphadenopathy. Bony Thorax: Right shoulder joint noncomplicated joint prosthesis. The left shoulder joint has mild arthritic changes. Soft Tissues: Soft tissues overlying the chest wall are unremarkable. IMPRESSION: 1. Mild cardiomegaly. 2. Left mid lung zone tiny calcified nodule .No follow up is required. 3. No acute cardiopulmonary abnormalities are identified. 4. No significant interval changes as compared to the previous study. Electronically signed by Paco Farah 05-06-2024 5:37 PM
[2024-05-06] MEDS ORDERED: ALBUTEROL HFA 8 GM INHALER INH PRN (19:38)
[2024-05-06] MEDS ORDERED: POLYETHYLENE (MIRALAX) 17 GM PACK PO PRN ×2 (19:38→21:10)
[2024-05-06] MEDS ORDERED: ONDANSETRON 4 MG OD TAB PO PRN (19:42)
[2024-05-06] MEDS ORDERED: ACETAMINOPHEN 325 MG TAB PO PRN (19:43)
[2024-05-06] MEDS ORDERED: ENOXAPARIN INJ 40 MG/0.4 ML SYR SQ SCH (20:00)
--- NOTE | 2024-05-06 21:03 | History & Physical Report ---
Date of Service May 06, 2024 Assessment & Plan (1) Atrial flutter: Plan: -appears to have atrial flutter on ECG and telemetry, albeit not clear image -likely cause of palpitations and precipitated by known influenza A infection -appears to be new onset, however chart has hx of atrial fibrillation (patient denies) -appears to have started Wednesday night based on symptom onset Plan: -check TSH, A1c, lipids for risk stratification -cardiology consult, messaged team, will see in AM -discussed anticoagulation with patient, [id number] score of 4-5, benefit far outweights risk (HASBLED of 1) of anticoagulation, patient agreeable, will start low intensity heparin with transition to DOAC if confirmed atrial flutter and pending procedures -continue metoprolol xl 25 mg given appears to be rate controlled at this time -appreciate fluid resuscitaiton in ED -check echo -PT/OT ordered as patient feels weaker than baseline (2) URI due to influenza A virus: Plan: -on room air -no evidence of developing CAP on chest xray, hemodynamically stable, no leukocytosis Plan: -appreciate fluids by ED -tamiflu x5 days -incentive spirometer (3) Anxiety: Plan: -continue home meds -checked PDMP, lorazepam prescribed outpatient Plan Feeding/fluids: regular Analgesia: tylenol Sedation: na Thromboprophylaxis: low intensity heparin Head up position: na Ulcer prophylaxis: na Glycemic control: na Spontaneous breathing trial: room air Bowel care: miralax prn Indwelling catheter removal: na Deescalation of antibiotics: na I spent a total of 80 minutes in direct patient care, including [id number] time with the patient and/or family, reviewing medical records, ordering and reviewing diagnostic tests, and coordinating care with other healthcare providers. This time includes: history taking, physical examination, medical decision making, counseling, ECG interpretation, imaging interpretation, lab interpretation, orders, and education, excluding time spent in the performance of separately billed services. Admission and Anticipated Discharge Date Admission Date: May 06, 2024 History of Present Illness Chief Complaint: -cough, palpitations Primary Care Provider: Lucita Payan, DO 73 yo female with pmhx DM Type 2, HLD, HTN, ankylosing spondylitis, hx of breast (DCIS) and endometrial cancers, and hx of afib with RVR (per chart, patient denies) who presents for palpitations and cough. at home has flu. She states that for the past few days she has been having palpitations and feeling slightly SOB with exertion. Has cough as well. States this has never happened before. Denies nausea, vomiting, other symptoms such as chest pain. No tobacco use, no alcohol use, no drug use, discussed resuscitation at length, risks and benefits described, patient would like to be full code at this time. Allergies Allergy/AdvReac Type Severity Reaction Status Date / Time buspirone Allergy Intermediate Rash Verified 11/21/21 16:18 aspirin Allergy Unknown GI upset Verified 11/21/21 16:18 and epistaxis clavulanic acid Allergy Unknown ALLERGY TO Verified 11/21/21 16:18 "BETA-LACTAMASE" INHIBITORS Macrolide Antibiotics Allergy Unknown Rash Verified 11/21/21 16:18 sulbactam Allergy Unknown ALLERGY TO Verified 11/21/21 16:18 "BETA-LACTAMASE INHIBITORS" Sulfa (Sulfonamide Allergy Unknown Unknown Verified 11/21/21 16:18 Antibiotics) codeine AdvReac Mild SWEATS,ARSENIO Verified 11/21/21 16:18 TS Home Medications Medication Instructions Recorded Confirmed Type acetaminophen 325 mg capsule 325 mg PO QID PRN Pain 04/16/21 05/06/24 History (Tylenol) lorazepam 1 mg tablet 0.5 mg PO BID 04/16/21 05/06/24 History omeprazole 20 mg capsule,delayed 20 mg PO QAM 04/16/21 05/06/24 History release sertraline 25 mg tablet (Zoloft) 25 mg PO HS 04/16/21 05/06/24 History atorvastatin 20 mg tablet 40 mg PO HS 06/10/21 05/06/24 History lorazepam 1 mg tablet 1 mg PO HS 06/10/21 05/06/24 History meclizine 12.5 mg tablet 12.5 mg PO TID PRN Dizziness 10/26/23 05/06/24 History metoprolol succinate 25 mg 25 mg PO QAM 10/26/23 05/06/24 History tablet,extended release 24 hr albuterol sulfate 90 mcg/actuation 2 puff inhalation Q4H PRN sob 05/06/24 05/06/24 History aerosol inhaler fluticasone propionate 50 1 spray intranasal DIRECTED PRN 05/06/24 05/06/24 History mcg/actuation nasal Other spray,suspension ondansetron HCl 4 mg tablet 4 mg PO Q8H PRN Nausea 05/06/24 05/06/24 History Past Med/Surg History Problem List (Updated 05/06/24 @ 21:01 by Gerald Pressley MD) Atrial flutter Elevated troponin I level (Acute) URI due to influenza A virus (Acute) Atrial fibrillation with rapid ventricular response (Acute) Status post reverse arthroplasty of right shoulder (~06/2021) Encounter for pre-operative examination PAC (premature atrial contraction) (Acute) Heart palpitations (Acute) Heart palpitations (Acute) Cholecystitis with cholelithiasis Near syncope (Acute) GERD (gastroesophageal reflux disease) (Chronic) Chest pain (Acute) Dizziness (Acute) Pre-syncope (Acute 02/04/13) Constipation (Acute) Abdominal pain (Acute) Benign paroxysmal positional vertigo (Chronic 11/04/12) Ongoing and chronic issue "Vestibular instability and balance problems" per cardio S records Has been to vestibular center- felt vertigo due to floaters in eyes Breast cancer (Chronic) Dizziness (Chronic) PVC (premature ventricular contraction) (Chronic) Medical History Deviated nasal septum History of COVID-10 Nov 2020 > very mild symptoms Stress incontinence GERD (gastroesophageal reflux disease) Controlled and stable with meds Borderline diabetes Diet control Endometrial cancer 2009 > hysterectomy - no chemo and XRT Breast cancer 2001 > lumpectomy left > radiation Denies left UE restriction Depression Anxiety Mitral regurgitation Mild per 04/2021 ECHO Shortness of breath Mostly just happens after taking meds Heart palpitations Follows with [facility] Secondary to symptomatic PACs and short runs of PAT Also history PVCs Hypertension Hyperlipidemia Surgical History History of shoulder surgery Hx of vitrectomy History of cataract surgery bilat Hx of oral surgery History of dilatation and curettage History of bilateral tubal ligation History of total hip arthroplasty bilat History of colonoscopy History of cholecystectomy Hx of hysterectomy History of lumpectomy of left breast Family History Uncle Diabetes Grandmother Colon cancer Mother Cerebral aneurysm Cancer Father Hearing loss Other Asthma Hypertension No family history of adverse response to anesthesia No family history of bleeding disorder Stroke Social History Smoking Status: Never smoker Second Hand Exposure: No; Do You Dip or Chew Tobacco: No; Hx Alcohol Use: No Hx Substance Use: No Preferred Language: Latvian Communication Ability: Effective Patient Admitting Clerk Required: No Beliefs That Will Affect Care: None Current Living Situation: Spouse Feels Safe at Home: Yes Safety Concerns: Feels Safe At This Time Assistive Devices: Cane, Denture - Upper and Glasses Review of Systems Review of Systems: CONSTITUTIONAL: Patient denies fevers, chills, sweats and weight changes. EYES: Patient denies any visual symptoms. EARS, NOSE, AND THROAT: No difficulties with hearing. No symptoms of rhinitis or sore throat. CARDIOVASCULAR: palpitations RESPIRATORY: cough, SOB with exertion GI: No nausea, vomiting, diarrhea, constipation, abdominal pain, hematochezia or melena. : No urinary hesitancy or dribbling. No nocturia or urinary frequency. No abnormal urethral discharge. MUSCULOSKELETAL: No myalgias or arthralgias. NEUROLOGIC: No chronic headaches, no seizures. Patient denies numbness, tingling or weakness. PSYCHIATRIC: Patient denies problems with mood disturbance. No problems with anxiety. ENDOCRINE: No excessive urination or excessive thirst. DERMATOLOGIC: Patient denies any rashes or skin changes. Physical Exam Physical Exam: Gen: A&O 3 NAD HEENT: NCAT, EOMI, not icteric. External ears normal. No rhinorrhea. Moist mucous membranes. Neck: Supple, full range of motion, no observable masses, No meningeal sign. Lungs: trace rhonchi bilaterally CV: irregular rhythm, regular rate Abdomen: Soft, nondistended, No rebound tenderness. MSK: 1+ nonpitting edema in legs bilaterally Skin: No rashes, petechiae, lesions. Normal color per patient. Neuro: Normal Gait, Grossly intact. Psych: Appropriate for situation. Results & Data Results & Data Vital Signs (Past 12 Hours) Vital Signs Temp Pulse Pulse Pulse Resp BP BP 05/06/24 19:39 36.7 C 83 18 171/92 H 05/06/24 19:28 82 05/06/24 17:55 81 18 153/79 H 05/06/24 16:48 79 05/06/24 16:37 89 18 141/100 H 05/06/24 14:16 81 18 140/82 05/06/24 12:42 105 H 05/06/24 12:17 36.1 C L 110 H 22 150/79 H Pulse Ox O2 Del Method 05/06/24 19:39 99 Room Air 05/06/24 19:28 05/06/24 17:55 96 Room Air 05/06/24 16:48 05/06/24 16:37 96 Room Air 05/06/24 14:16 97 Room Air 05/06/24 12:42 05/06/24 12:17 94 Room Air Laboratory Results -personally reviewed, mild leukopenia with mildly elevated BUN creatinine ratio suggestive of dehydration, mildly elevated troponin that has downtrended Diagnostic Findings Chest X-Ray 05/06/24 12:30 EXAM: XR chest 1V portable CLINICAL HISTORY: Dysrhythmia. TECHNIQUE: An X-ray image of the chest is obtained in PA projection. COMPARISON: Prior study dated 11/03/2023. FINDINGS: Pulmonary Parenchyma: Left midlung zone dense well defined small nodule 3mm in diameter. No evidence of consolidation, collapse, or focal opacities. No evidence of pleural effusion or pleural thickening. Heart and Mediastinum: Mildly enlarged cardiac shadow. No mediastinal widening or masses. No hilar or mediastinal lymphadenopathy. Bony Thorax: Right shoulder joint noncomplicated joint prosthesis. The left shoulder joint has mild arthritic changes. Soft Tissues: Soft tissues overlying the chest wall are unremarkable. IMPRESSION: 1. Mild cardiomegaly. 2. Left mid lung zone tiny calcified nodule .No follow up is required. 3. No acute cardiopulmonary abnormalities are identified. 4. No significant interval changes as compared to the previous study. Electronically signed by Paco Farah 05-06-2024 5:37 PM -personally reviewed, no evidence of CAP on chest xray, chronic calcified nodule Code Status & VTE Plan Code Status -see above, full code VTE Prophylaxis Plan VTE Prophylaxis will be ordered: Yes (1) Atrial flutter Atrial flutter type: unspecified Qualified Code(s): I48.92 - Unspecified atrial flutter
[2024-05-06] MEDS: LORazepam 1 MG TAB PO SCH (21:37)
[2024-05-06] MEDS: OSELTAMIVIR PHOSPHATE 75 MG CAP PO SCH (21:37)
[2024-05-06] MEDS: SERTRALINE HCL 50 MG TABLET PO SCH (21:45)
[2024-05-06] MEDS: ATORVASTATIN 40 MG TAB PO SCH (21:45)
[2024-05-06 22:12] LABS: INR 0.9 (0.9-1.1); Partial Thromboplastin Time 28 Seconds (21-31); Prothrombin Time 10.3 Seconds (9.0-12.0)
[2024-05-06 22:14] LABS: Hematocrit (blood only) 42.9 % (37.0-47.0); Hemoglobin 14.5 g/dl (12.0-16.0); Mean Corpuscular Hemoglobin 28.4 pg (25.0-34.0); Mean Corpuscular Hgb Conc 33.8 g/dL (32.0-36.0); Platelet Count 188 K/uL (130-400); RDW Coefficient of Variation 12.8 % (11.5-14.5); RDW Standard Deviation 39.1 fL (36.4-46.3); Red Blood Count 5.11 M/uL (4.20-5.40); White Blood Count 3.37 K/ul (4.8-10.8)
[2024-05-06] MEDS: HEPARIN 25000 UNIT/500 ML D5W 25,000 UNITS/500 ML BAG IV SCH (22:21)
[2024-05-06 23:04] LABS: Basophils # (auto) 0.01 K/uL (0.00-0.20); Basophils % (auto) 0.3 %; Eosinophils # (auto) 0.04 K/uL (0.00-0.50); Eosinophils % (auto) 1.2 %; Immature Granulocytes # (auto) 0.01 K/uL (0.01-0.20); Immature Granulocytes % (auto) 0.3 %; Lymphocytes # (auto) 1.74 K/uL (1.20-3.40); Lymphocytes % (auto) 51.6 %; Monocytes # (auto) 0.28 K/uL (0.11-0.59); Monocytes % (auto) 8.3 %; Neutrophils # (auto) 1.29 K/uL (1.40-6.50); Neutrophils % (auto) 38.3 %; RBC Morphology Unremarkable
[2024-05-06] MEDS: COUGH DROP (SUGAR FREE) LOZ 24 LOZ/1 BOX BUCCAL PRN (23:52)
[2024-05-06] MEDS: guaiFENesin/DEXTROM SYRUP 100MG/10MG 5ML UDC PO PRN (23:52)
[2024-05-06] MEDS: FLUTICASONE PROPIONATE NA SPR 16 GM BTL NAE PRN (23:54)
[2024-05-07 05:08] LABS: Hematocrit (blood only) 39.3 % (37.0-47.0); Hemoglobin 13.4 g/dl (12.0-16.0); Mean Corpuscular Hemoglobin 28.6 pg (25.0-34.0); Mean Corpuscular Hgb Conc 34.1 g/dL (32.0-36.0); Mean Corpuscular Volume 83.8 fL (80.0-100.0); Mean Platelet Volume 10.8 fL (9.4-12.4); Platelet Count 195 K/uL (130-400); RDW Coefficient of Variation 12.9 % (11.5-14.5); RDW Standard Deviation 38.9 fL (36.4-46.3); Red Blood Count 4.69 M/uL (4.20-5.40)
[2024-05-07 05:25] LABS: BUN Creatinine Ratio 18.7 (10-20); Calcium 8.6 mg/dl (8.6-10.3); Creatinine Clr Calc Pharmacy 66.2 ml/min; Magnesium 1.9 mg/dl (1.7-2.4); Potassium 3.9 mmol/L (3.5-5.1)
[2024-05-07 05:31] LABS: ANTI-Xa, UFH(UnfractionatedHep 0.35 IU/ml (0.3-0.7)
[2024-05-07 07:37] VITALS: RESP 16
[2024-05-07] MEDS: Heparin IV Adult Wt-Based Low-Dose *NO* INITIAL Bolus Protocol IV SCH (07:44)
[2024-05-07] MEDS: METOPROLOL SUCC 25MG EXT REL TAB PO SCH (08:05)
[2024-05-07] MEDS: POTASSIUM CHLORIDE CRTAB 20 MEQ TABCR PO STA (08:05)
[2024-05-07] MEDS: MAGNESIUM SULFATE / D5W 1 GM/100 ML BAG IV ONE (08:05)
[2024-05-07] MEDS: LORazepam 0.5 MG TAB PO SCH (08:05)
[2024-05-07] MEDS: PANTOprazole 40 MG TAB PO SCH (08:06)
--- NOTE | 2024-05-07 09:23 | Cardiology Consultation ---
Date of Consultation May 07, 2024 Assessment & Plan (1) URI due to influenza A virus: (2) Atrial flutter: (3) Elevated troponin I level: (4) HTN, goal below 130/80: (5) Dyslipidemia, goal LDL below 70: Plan Influenza A. As per Hospitalist. Atrial flutter. Symptomatic. New onset. Duration unknown, probably since . Status post spontaneous conversion back to sinus rhythm on 05/07/2024 at 01:39:04 without significant conversion pause. [id number] 4 points. Opt ions of management discussed. Patient chronically prescribed metoprolol succinate at 25 mg/day, with past poor tolerance to higher dosing of 50 mg/day. Recommend increasing metoprolol succinate to 37.5 mg/day. Recommend initiation of anticoagulation, Eliquis 5 mg twice per day. Continue chronic PPI therapy for GI prophylaxis. Elevated troponin. Suspect secondary to the above. Echo this admission with preserved LV systolic function, without wall motion abnormality. Patient with atypical chest pain, multiple cardiac risk factors. After recovering from influenza A recommend proceeding with outpatient Lexiscan nuclear stress testing. Hypertension. Blood pressure acceptably controlled. Dyslipidemia. Continue atorvastatin 40 mg/day. History of Present Illness Reason for Consultation: Atrial flutter Requesting Physician: Dr. Gerald Pressley Attending Physician: Dr. Marlen Huerta MD History of Present Illness Patient is a 73-year-old female who was in her usual state of health until Wednesday, May 01, 2024 at which time she started with cough and chest congestion, nausea and decreased appetite. On May 03, 2024 patient presented to urgent care for evaluation of symptoms, testing positive for influenza A. Chest x-ray obtained, without acute pulmonary abnormality. Patient presented to [facility] on May 06, 2024 for evaluation of ongoing cough as well as palpitations, fluttering sensation which started on . EKG on presentation demonstrated probable atrial flutter with rapid ventricular response. High-sensitivity troponin mildly elevated at 25.5 and then 23.8 pg/mL. Patient received IV fluid resuscitation and magnesium in the ER with some improvement. Continuous telemetry monitoring reveals conversion from atrial flutter to sinus rhythm at 1:39:04 on May 07, 2024 without significant conversion pause. Prior cardiac history includes symptomatic atrial ectopy as well as short runs of atrial tachycardia, nonrheumatic mitral regurgitation, hypertension with LVH, dyslipidemia. Patient describes chest discomfort occurring without rhyme or reason. No orthopnea or PND. No dizziness or syncope. No melena or hematochezia. Social History: Non-smoker. No alcohol. No illegal drug use. Homemaker. Lives with . 4 children. Family History: Mother the brain aneurysm at the age of 29. Maternal grandmother with CAD. Father with kidney and lung cancer. Allergies Allergy/AdvReac Type Severity Reaction Status Date / Time buspirone Allergy Intermediate Rash Verified 11/21/21 16:18 aspirin Allergy Unknown GI upset Verified 11/21/21 16:18 and epistaxis clavulanic acid Allergy Unknown ALLERGY TO Verified 11/21/21 16:18 "BETA-LACTAMASE" INHIBITORS Macrolide Antibiotics Allergy Unknown Rash Verified 11/21/21 16:18 sulbactam Allergy Unknown ALLERGY TO Verified 11/21/21 16:18 "BETA-LACTAMASE INHIBITORS" Sulfa (Sulfonamide Allergy Unknown Unknown Verified 11/21/21 16:18 Antibiotics) codeine AdvReac Mild SWEATS,ARSENIO Verified 11/21/21 16:18 TS Home Medications Medication Instructions Recorded Confirmed Type acetaminophen 325 mg capsule 325 mg PO QID PRN Pain 04/16/21 05/06/24 History (Tylenol) lorazepam 1 mg tablet 0.5 mg PO BID 04/16/21 05/06/24 History omeprazole 20 mg capsule,delayed 20 mg PO QAM 04/16/21 05/06/24 History release sertraline 25 mg tablet (Zoloft) 25 mg PO HS 04/16/21 05/06/24 History atorvastatin 20 mg tablet 40 mg PO HS 06/10/21 05/06/24 History lorazepam 1 mg tablet 1 mg PO HS 06/10/21 05/06/24 History meclizine 12.5 mg tablet 12.5 mg PO TID PRN Dizziness 10/26/23 05/06/24 History metoprolol succinate 25 mg 25 mg PO QAM 10/26/23 05/06/24 History tablet,extended release 24 hr albuterol sulfate 90 mcg/actuation 2 puff inhalation Q4H PRN sob 05/06/24 05/06/24 History aerosol inhaler fluticasone propionate 50 1 spray intranasal DIRECTED PRN 05/06/24 05/06/24 History mcg/actuation nasal Other spray,suspension ondansetron HCl 4 mg tablet 4 mg PO Q8H PRN Nausea 05/06/24 05/06/24 History apixaban 5 mg tablet (Eliquis) 5 mg PO BID #60 tabs 05/07/24 Rx Patient History Medical History Deviated nasal septum History of COVID-10 Nov 2020 > very mild symptoms Stress incontinence GERD (gastroesophageal reflux disease) Controlled and stable with meds Borderline diabetes Diet control Endometrial cancer 2009 > hysterectomy - no chemo and XRT Breast cancer 2001 > lumpectomy left > radiation Denies left UE restriction Depression Anxiety Mitral regurgitation Mild per 04/2021 ECHO Shortness of breath Mostly just happens after taking meds Heart palpitations Follows with [facility] Secondary to symptomatic PACs and short runs of PAT Also history PVCs Hypertension Hyperlipidemia Surgical History History of shoulder surgery Hx of vitrectomy History of cataract surgery bilat Hx of oral surgery History of dilatation and curettage History of bilateral tubal ligation History of total hip arthroplasty bilat History of colonoscopy History of cholecystectomy Hx of hysterectomy History of lumpectomy of left breast Family History Uncle Diabetes Grandmother Colon cancer Mother Cerebral aneurysm Cancer Father Hearing loss Other Asthma Hypertension No family history of adverse response to anesthesia No family history of bleeding disorder Stroke Social History Smoking Status: Never smoker Second Hand Exposure: No; Do You Dip or Chew Tobacco: No; Hx Alcohol Use: No Hx Substance Use: No Preferred Language: Yi Communication Ability: Effective [employer]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 Pleasant. Comfortable. Cooperative. HENT: Normocephalic. Atraumatic. Eyes: Abnormal extraocular eye movement. PER. Sclera clear. Neck: No JVD. Heart: RRR. Grade II/ apical systolic murmur. Lungs: Clear to auscultation. Abdomen: +BS. Soft. Nontender. No masses or organomegaly. Extremities: Thick with mild varicosities. No significant edema. No clubbing. No cyanosis Limited neurological examination is without focal deficits. Pulses: radial=2/4, posterior tibial=2/4. Results & Data Vital Signs (Past 12 Hours) Vital Signs Temp Pulse Pulse Resp BP Pulse Ox O2 Del Method 05/07/24 08:41 58 L 05/07/24 07:37 36.7 C 63 16 128/69 94 Room Air 05/07/24 07:24 Room Air 05/07/24 04:17 36.5 C 66 18 107/68 96 Room Air 05/07/24 01:44 67 05/06/24 23:50 36.6 C 82 18 123/66 94 Room Air 05/06/24 22:45 82 Laboratory Results Cardiac Enzymes 05/06/24 05/06/24 Range/Units 13:07 14:52 AST 30 (13-39) U/L Troponin I High Sens 25.5 H 23.8 H (0-14) pg/ml Coagulation 05/06/24 05/06/24 Range/Units 13:07 21:31 PT 10.2 10.3 (9.0-12.0) Seconds APTT 24 28 (21-31) Seconds Lipids 05/06/24 Range/Units 13:07 Triglycerides 113 (0-150) mg/dl Cholesterol 151 (0-200) mg/dl HDL Cholesterol 47 mg/dl Cholesterol/HDL Ratio 3.2 (0-5) CBC 05/06/24 05/06/24 05/07/24 Range/Units 13:07 21:31 04:43 WBC 3.40 L 3.37 L 4.10 L (4.8-10.8) K/ul RBC 4.98 5.11 4.69 (4.20-5.40) M/uL Hgb 14.2 14.5 13.4 (12.0-16.0) g/dl Hct 40.9 42.9 39.3 (37.0-47.0) % Plt Count 191 188 195 (130-400) K/uL Neut # (Auto) 1.70 1.29 L (1.40-6.50) K/uL Lymph # (Auto) 1.38 1.74 (1.20-3.40) K/uL Stanly # (Auto) 0.28 0.28 (0.11-0.59) K/uL Eos # (Auto) 0.02 0.04 (0.00-0.50) K/uL Baso # (Auto) 0.01 0.01 (0.00-0.20) K/uL Comprehensive Metabolic Panel 05/06/24 05/07/24 Range/Units 13:07 04:43 Sodium 136 137 (136-145) mmol/L Potassium 3.8 3.9 (3.5-5.1) mmol/L Chloride 102 105 (98-107) mmol/L Carbon Dioxide 27 26 (21-32) mmol/L BUN 18 14 (6-23) mg/dl Creatinine 0.75 0.75 (0.6-1.2) mg/dl Glucose 107 H 114 H (70-99(Fasting)) mg/dl Calcium 9.0 8.6 (8.6-10.3) mg/dl AST 30 (13-39) U/L ALT 23 (7-52) U/L Alkaline Phosphatase 92 (34-104) U/L Total Protein 7.0 (6.0-8.3) gm/dl Albumin 4.0 (3.4-5.0) gm/dl Intake and Output 05/06/24 05/07/24 05/07/24 22:59 06:59 14:59 Intake Total 129 / 729 Balance 129 / 729 Intake: IV 129 / 729 Heparin 07739 Unit/500 ml D5w 129 / 129 25,000 units In 500 ml @ 750 UNITS/HR 15 mls/hr IV .Q24H [facility] Rx#:[id number] Other: # Unmeasured Voids 2 Weight 83.1 kg Weight Measurement Method Standing Scale Diagnostic Findings Initial EKG demonstrates probable atrial flutter, chronic right bundle branch block, QTc 489 ms. Telemetry: Initially atrial flutter with rapid ventricular response converting to sinus rhythm on May 08, 2023 at 01:39:04. Currently sinus rhythm ranging from the 60s to 80s. Resting echocardiography on May 07, 2024 demonstrated normal size left ventricle with mild concentric LVH. Left ventricular wall motion was normal. Left ventricular ejection fraction was 60 to 65%. Left atrium was described as mildly dilated. No significant valvular disease observed. Doppler findings were not suggestive of pulmonary hypertension (2) Atrial flutter Atrial flutter type: unspecified Qualified Code(s): I48.92 - Unspecified atrial flutter
--- NOTE | 2024-05-07 10:11 | Communication Note ---
Date of Service: May 07, 2024 Patient was seen and personally examined. Full assessment and plan as outlined by advanced provider above. Care and management discussed and personally e ndorsed. 73-year-old female with paroxysmal atrial arrhythmia history presented with acute illness/influenza A and subsequent relapse into atrial flutter with elevated ventricular response rate. Patient had spontaneous conversion back to sinus rhythm. Currently asymptomatic minimally aware of elevated heart rate. Discussed management of atrial flutter in detail with patient ultimate goals initially at this time will be to continue rhythm control with beta-domo therapy and initiate anticoagulation. Discussed future options if more persistent including antiarrhythmic therapy and ablation. No indications for such now Would treat underlying infectious process with the recommendations as as per advanced provider
[2024-05-07] MEDS: APIXABAN 5 MG TABLET PO SCH (11:17)
[2024-05-07 11:29] VITALS: TEMP 98.2; O2SAT 95
--- NOTE | 2024-05-07 12:04 | Electrocardiogram Report ---
Test Reason : Blood Pressure : */* mmHG Vent. Rate : 81 BPM Atrial Rate : 326 BPM P-R Int : * ms QRS Dur : 122 ms QT Int : 410 ms P-R-T Axes : -44 -9 2 degrees QTcB Int : 476 ms Normal sinus rhythm Right bundle branch block Abnormal ECG When compared with ECG of 06-May-2024 12:28, (unconfirmed) No significant change Confirmed by Nitesh Gilliland ([id number]) on 05/07/2024 12:04:42 PM Referred By: REFERRED SELF Confirmed By: Nitesh Gilliland
--- NOTE | 2024-05-07 12:04 | Electrocardiogram Report ---
Test Reason : Blood Pressure : */* mmHG Vent. Rate : 110 BPM Atrial Rate : 110 BPM P-R Int : 214 ms QRS Dur : 120 ms QT Int : 362 ms P-R-T Axes : * 18 12 degrees QTcB Int : 489 ms Sinus tachycardia with 1st degree A-V block with occasional Premature ventricular complexes Right bundle branch block Abnormal ECG When compared with ECG of 03-Nov-2023 04:05, Premature ventricular complexes are now Present OR interval has increased Vent. rate has increased by 48 bpm T wave inversion more evident in Anterior leads Confirmed by Nitesh Gilliland ([id number]) on 05/07/2024 12:03:57 PM Referred By: Confirmed By: Nitesh Gilliland
[2024-05-07 12:15] VITALS: BP 171/92; PULSE 81
--- NOTE | 2024-05-07 12:15 | Discharge Summary ---
Discharge Summary Date of Service May 07, 2024 Principal Dx & Hospital Course #1 = Principal Diagnosis (1) Atrial flutter: (2) URI due to influenza A virus: (3) Anxiety: Plan This is a 73 yr old F who has a significant PMH of T2DM with polyneuropathy, HTN, HLD, Osteoarthritis, ankylosing spondylitis, depression with anxiety, hx of breast ca, MALIK who presented to ED 03/26 to palpitations and cough. She tested positive for the flu a few days prior to admission. Her at home also had the flu. She noted over the last few days feeling palpitations, "heart beating in her veins." She also reported feeling SOB. She denies every having this before. In ED pt was found to be in atrial flutter. It was felt this was brought on 03/26 influenza illness. She was continued on tamiflu. She had an echocardiogram which showed mild concentric LVH, LVEF 60-65%, left atrium mildly dilated and no significant valvular disease. She had spontaneously converted into NSR overnight. She was seen and evaluated by cardiology. Given her [id number] score of 4 it was recommended she transition to oral eliquis at discharge. Her metoprolol was also increased to 37.5mg daily. She had a prior intolerance to 50mg daily of metoprolol due to bradycardia and intolerance. On day of discharge she felt well. She still had a mild cough, but she was able to ambulate without assistance. She was saturating well on room air. Her Magnesium and Potassium were supplemented on day of discharge to keep > 2.0 and > 4.0 respectively. Cardiology is recommending the patient have a lexiscan stress test when feeling better at discharge. Notes For Next Care Provider Please ensure pt has cardiology follow up. Cardiology is recommending outpatient lexiscan test when feeling better. Medication Changes From Visit NEW MEDICATIONS: * Eliquis 5mg by mouth twice daily. Next dose is due at 10:00 p.m. on 05/07/24. * Tamiflu 75mg by mouth twice daily. Next dose due in the evening on 05/07/24. Complete course. Medication Change: * Metoprolol increased to 37.5mg (1.5 tablets) daily. Continue all other medications as prescribed. Admission HPI Per Admitting Provider 73 yo female with pmhx DM Type 2, HLD, HTN, ankylosing spondylitis, hx of breast (DCIS) and endometrial cancers, and hx of afib with RVR (per chart, patient denies) who presents for palpitations and cough. at home has flu. She states that for the past few days she has been having palpitations and feeling slightly SOB with exertion. Has cough as well. States this has never happened before. Denies nausea, vomiting, other symptoms such as chest pain. No tobacco use, no alcohol use, no drug use, discussed resuscitation at length, risks and benefits described, patient would like to be full code at this time. Admission Exam Per Admitting Provider Physical Exam: Gen: A&O 3 NAD HEENT: NCAT, EOMI, not icteric. External ears normal. No rhinorrhea. Moist mucous membranes. Neck: Supple, full range of motion, no observable masses, No meningeal sign. Lungs: trace rhonchi bilaterally CV: irregular rhythm, regular rate Abdomen: Soft, nondistended, No rebound tenderness. MSK: 1+ nonpitting edema in legs bilaterally Skin: No rashes, petechiae, lesions. Normal color per patient. Neuro: Normal Gait, Grossly intact. Psych: Appropriate for situation. Discharge Exam Gen: WD/WN, NAD, A&O x3 HEENT: Normocephalic, atraumatic, conjunctivae moist, sclerae anicteric, mucous membranes moist. Lung: Clear to Auscultation bilaterally, no wheezes/rales/rhonchi Heart: Regular rate, regular rhythm, no murmurs, rubs, or gallops Abdomen: Soft, NT, ND +BS x 4 Extremities: No edema Skin: Warm, no rash, negative turgor. Updated Medication List Medication Instructions Recorded Confirmed Type acetaminophen 325 mg capsule 325 mg PO QID PRN Pain 04/16/21 05/06/24 History (Tylenol) lorazepam 1 mg tablet 0.5 mg PO BID 04/16/21 05/06/24 History omeprazole 20 mg capsule,delayed 20 mg PO QAM 04/16/21 05/06/24 History release sertraline 25 mg tablet (Zoloft) 25 mg PO HS 04/16/21 05/06/24 History atorvastatin 20 mg tablet 40 mg PO HS 06/10/21 05/06/24 History lorazepam 1 mg tablet 1 mg PO HS 06/10/21 05/06/24 History meclizine 12.5 mg tablet 12.5 mg PO TID PRN Dizziness 10/26/23 05/06/24 History albuterol sulfate 90 mcg/actuation 2 puff inhalation Q4H PRN sob 05/06/24 05/06/24 History aerosol inhaler fluticasone propionate 50 1 spray intranasal DIRECTED PRN 05/06/24 05/06/24 History mcg/actuation nasal Other spray,suspension ondansetron HCl 4 mg tablet 4 mg PO Q8H PRN Nausea 05/06/24 05/06/24 History apixaban 5 mg tablet (Eliquis) 5 mg PO BID #60 tabs 05/07/24 Rx metoprolol succinate 25 mg 37.5 mg (1.5 x 25 mg) PO QAM 30 05/07/24 Rx tablet,extended release 24 hr days #45 tabs oseltamivir 75 mg capsule (Tamiflu) 75 mg PO BID #8 caps 05/07/24 Rx Hospital Stay Data Consultations 05/06/24 16:55 Consult Cardiology Routine 1) URI due to influenza A virus: (2) Atrial flutter: (3) Elevated troponin I level: (4) HTN, goal below 130/80: (5) Dyslipidemia, goal LDL below 70: Plan Influenza A. As per Hospitalist. Atrial flutter. Symptomatic. New onset. Duration unknown, probably since . Status post spontaneous conversion back to sinus rhythm on 05/07/2024 at 01:39:04 without significant conversion pause. [id number] 4 points. Options of management discussed. Patient chronically prescribed metoprolol succinate at 25 mg/day, with past poor tolerance to higher dosing of 50 mg/day. Recommend increasing metoprolol succinate to 37.5 mg/day. Recommend initiation of anticoagulation, Eliquis 5 mg twice per day. Continue chronic PPI therapy for GI prophylaxis. Elevated troponin. Suspect secondary to the above. Echo this admission with preserved LV systolic function, without wall motion abnormality. Patient with a typical chest pain, multiple cardiac risk factors. After recovering from influenza A recommend proceeding with outpatient Lexiscan nuclear stress testing. Hypertension. Blood pressure acceptably controlled. Dyslipidemia. Continue atorvastatin 40 mg/day. Diagnostic Imagining Performed Chest X-Ray 05/06/24 12:30 EXAM: XR chest 1V portable CLINICAL HISTORY: Dysrhythmia. TECHNIQUE: An X-ray image of the chest is obtained in PA projection. COMPARISON: Prior study dated 11/03/2023. FINDINGS: Pulmonary Parenchyma: Left midlung zone dense well defined small nodule 3mm in diameter. No evidence of consolidation, collapse, or focal opacities. No evidence of pleural effusion or pleural thickening. Heart and Mediastinum: Mildly enlarged cardiac shadow. No mediastinal widening or masses. No hilar or mediastinal lymphadenopathy. Bony Thorax: Right shoulder joint noncomplicated joint prosthesis. The left shoulder joint has mild arthritic changes. Soft Tissues: Soft tissues overlying the chest wall are unremarkable. IMPRESSION: 1. Mild cardiomegaly. 2. Left mid lung zone tiny calcified nodule .No follow up is required. 3. No acute cardiopulmonary abnormalities are identified. 4. No significant interval changes as compared to the previous study. Electronically signed by Paco Farah 05-06-2024 5:37 PM Pending Results Patient Have Any Pending Studies at Discharge: No Discharge Instructions Given to Patient (Per Discharging Provider) MEDICATION CHANGES: NEW MEDICATIONS: * Eliquis 5mg by mouth twice daily. Next dose is due at 10:00 p.m. on 05/07/24. * Tamiflu 75mg by mouth twice daily. Next dose due in the evening on 05/07/24. Complete course. Medication Change: * Metoprolol increased to 37.5mg (1.5 tablets) daily. Continue all other medications as prescribed. SUMMARY OF TEST RESULTS: You were admitted to the hospital due to an abnormal heart rhythm that was found on EKG. It was felt this was likely secondary to your underlying flu illness. You spontaneously converted back to normal rhythm. You were seen and evaluated by cardiology. You were started on a blood thinner (Eliquis) to help prevent the risk of stroke. Your metoprolol was increased. You were feeling well on day of discharge. It is recommended you have an outpatient stress test when feeling better. PENDING TEST RESULTS: None RECOMMENDATIONS FOR FOLLOW-UP: Please follow up with your Primary Care Provider within a week of discharge. Please have your Primary Care Provider place a referral to cardiology for outpatient stress test and management of your heart. Please take all medications prescribed. Rest and take it easy as your continue to recover from the flu. You can expect cough and fatigue to last approximately 2-3 weeks. OTHER INSTRUCTIONS: Seek medical attention if you have: * temperature above 101 * chest pain or trouble breathing * abdominal pain, nausea, vomiting * diarrhea, dark stools or bloody stools * any unanswered questions or concerns Call 911 if symptoms are severe. Please take good care of yourself. It has been a pleasure taking care of you. Please take care of yourself. If you have any questions regarding your recent hospitalization please contact [facility] and request Canelo Tompkins @ [phone]. Total Time Total Time Spent Total Time Spent (In Minutes): 45 minutes Supervising Physician Co-Signing Physician Notes I have seen and discussed the case with the collaborating advanced practitioner. I agree with the above DS. I have reviewed and confirmed the patients medical history, the findings on physical examination, and the patients diagnosis and treatment plan with Sandie and agree with the information documented. Ms. Angelo was admitted for flu and a flutter. Denies any other acute concerns. Started on eliquis and metoprolol increased. Exam with NSR and CTABL. Complete tamiflu. Plan for pcp and cards follow up I spent a total of 15 minutes coordinating, documenting, and providing care for this patient excluding time spent in the performance of separately billed services. All of the aforementioned completed outside of collaborating with the assigned advanced practitioner for a full treatment plan. I have reviewed the advanced practitioner's documentation, and I agree with, and take responsibility for the plan of care
[2024-05-08] MEDS ORDERED: METOPROLOL SUCC 25MG EXT REL TAB PO SCH (09:00)
== END 2024-05-07 13:51 | disposition home or self-care (01) ==
LOC: 2W 12:13 → ED 12:13 → SUATTDRO 15:58 → 2W 18:04
DX: Z79.01 Long term (current) use of anticoagulants; I48.91 Unspecified atrial fibrillation; R79.89 Other specified abnormal findings of blood chemistry; Z79.82 Long term (current) use of aspirin; Z88.5 Allergy status to narcotic agent; E78.5 Hyperlipidemia, unspecified; Z86.16 Personal history of COVID-19; I48.92 Unspecified atrial flutter; Z79.899 Other long term (current) drug therapy; Z88.6 Allergy status to analgesic agent; I10 Essential (primary) hypertension; Z88.2 Allergy status to sulfonamides; J10.1 Influenza due to other identified influenza virus with other respiratory manifestations